=== PATIENT | male | born 1935 | race Caucasian/White ===

== ENCOUNTER → 2017-05-24 | Outpatient (REF) | payer MEDICARE, BC, OTHER ==
[~2017-05-24] MED LIST: "\\\"BP PILL\\\"" PO; "\\\"CHOLESTEROL MED\\\"" PO; /LOR25TA PO; ACETGRA PO; INFL10VL IV; METFORMIN PO; PERCOCET PO; TYLE325T5 PO; [UNRECOGNIZED DRUG - REMARK] PO; [UNRECOGNIZED DRUG - REMARK] PO
[2017-05-24 20:04] LABS: FREE T4 0.86 NG/DL (0.76-1.46)
== END ==
LOC: M SFHCPLAZ 15:35
PROVIDERS: ATTEND Family Medicine
DX: R41.89 Other symptoms and signs involving cognitive functions and awareness (principal); R41.3 Other amnesia; Z79.84 Long term (current) use of oral hypoglycemic drugs; Z79.899 Other long term (current) drug therapy
CPT/HCPCS: 36415; 82306; 82607; 84439; 84443; G0463

== ENCOUNTER → 2017-06-20 | Outpatient (REF) | payer MEDICARE, OTHER ==
[2017-06-20 13:46] LABS: BASO % 0.5 % (0.0-1.0); EOS # 0.1 K/mm3 (0.0-0.50); EOS % 1.7 % (0.0-3.0); LARGE UNSTAINED CELL # 0.1 K/mm3 (0.0-0.4); LARGE UNSTAINED CELL % 2.1 % (0.0-4.0); LYMPH % 44.7 % (24.0-44.0); MEAN CORPUSCULAR HEMOGLOBIN 31.9 pg (27.0-33.0); MEAN CORPUSCULAR HGB CONC 34.6 g/dl (32.0-36.5); MEAN CORPUSCULAR VOLUME 92.4 fl (80.0-96.0); MONO # 0.3 K/mm3 (0.0-0.8); MONO % 4.3 % (0.0-5.0); NEUTROPHILS # 3.1 K/mm3 (1.8-7.7); NEUTROPHILS % 46.7 % (36.0-66.0); PLATELET COUNT, AUTOMATED 189 k/mm3 (150-450); RED CELL DISTRIBUTION WIDTH 13.8 % (11.5-14.5); WHITE BLOOD COUNT 6.7 K/mm3 (4.0-10.0)
[2017-06-20 14:08] LABS: ERYTHROCYTE SEDIMENTATION RATE 35 mm/hr (0-20)
[2017-06-20 14:31] LABS: ALBUMIN 3.9 GM/DL (3.2-5.2); ALBUMIN/GLOBULIN RATIO 1.11 (1.00-1.93); ALKALINE PHOSPHATASE 65 U/L (45-117); ALT/SGPT 18 U/L (12-78); ANION GAP 3 MEQ/L (8-16); AST/SGOT 14 U/L (15-37); BILIRUBIN,TOTAL 0.6 MG/DL (0.2-1.0); BLOOD UREA NITROGEN 21 MG/DL (7-18); CALCIUM LEVEL 8.3 MG/DL (8.8-10.2); CARBON DIOXIDE LEVEL 30 MEQ/L (21-32); CHLORIDE LEVEL 102 MEQ/L (98-107); CREATININE FOR GFR 1.16 MG/DL (0.70-1.30); GLOMERULAR FILTRATION RATE > 60.0 (>35); GLUCOSE, FASTING 102 MG/DL (83-110); POTASSIUM SERUM 4.2 MEQ/L (3.5-5.1); SODIUM LEVEL 135 MEQ/L (136-145); TOTAL PROTEIN 7.4 GM/DL (6.4-8.2)
[2017-06-20 14:35] LABS: FOLATE > 24.0 NG/ML; VITAMIN B12 LEVEL 1762 PG/ML
[2017-06-24 08:08] LABS: VITAMIN E LEVEL 28.5 mg/L (5.3-17.5)
== END ==
LOC: M LABDRAW1 13:14
PROVIDERS: ATTEND Psychiatry & Neurology Neurology
DX: F03.90 Unspecified dementia, unspecified severity, without behavioral disturbance, psychotic disturbance, mood disturbance, and anxiety (principal); R20.9 Unspecified disturbances of skin sensation; Z13.29 Encounter for screening for other suspected endocrine disorder; Z79.899 Other long term (current) drug therapy

== ENCOUNTER → 2017-10-13 | Outpatient (CLI) | payer MEDICARE, OTHER ==
[2017-10-13 13:39] LABS: ANION GAP 7 MEQ/L (8-16); BLOOD UREA NITROGEN 23 MG/DL (7-18); CALCIUM LEVEL 8.9 MG/DL (8.8-10.2); CARBON DIOXIDE LEVEL 29 MEQ/L (21-32); CHLORIDE LEVEL 102 MEQ/L (98-107); CREATININE FOR GFR 1.22 MG/DL (0.70-1.30); GLOMERULAR FILTRATION RATE > 60.0 (>35); GLUCOSE, FASTING 100 MG/DL (83-110); POTASSIUM SERUM 4.3 MEQ/L (3.5-5.1); SODIUM LEVEL 138 MEQ/L (136-145)
== END ==
LOC: M LABDRAW1 11:40
PROVIDERS: ATTEND Orthopaedic Surgery
DX: Z01.812 Encounter for preprocedural laboratory examination (principal); G56.02 Carpal tunnel syndrome, left upper limb

== ENCOUNTER → 2017-10-30 | Outpatient (REF) | payer MEDICARE, OTHER | LOC: M SFHCPLAZ 08:41 | PROVIDERS: ATTEND Family Medicine | DX: R41.3 Other amnesia (principal) ==

== ENCOUNTER 2019-06-05 13:08 | Observation (INO) | payer MEDICARE, BC, OTHER ==
[~2019-06-05] VITALS: Ht 175.3 cm; Wt 104.5 kg
[~2019-06-05 13:08] MED LIST changes: +OXYC1TAB23 PO; -PERCOCET PO
[2019-06-05] MEDS ORDERED: MYRB50TA PO (13:34)
[2019-06-05] MEDS ORDERED: EZET10TA21 (13:34)
[2019-06-05] MEDS ORDERED: MEMA1TAB2 PO (13:34)
[2019-06-05] MEDS ORDERED: QUET1TAB7 PO (13:34)
[2019-06-05] MEDS ORDERED: LISI-542 PO (13:34)
[2019-06-05] MEDS ORDERED: XALA0.007 OU (13:34)
[2019-06-05] MEDS ORDERED: DONE10TA90 PO (13:34)
[2019-06-05] MEDS ORDERED: SIMV40TA2 (13:34)
[2019-06-05] MEDS ORDERED: DORZ2SOL5 OU (13:34)
[2019-06-05] MEDS ORDERED: BRIM1OPD OU (13:34)
[2019-06-05] MEDS: NS 1,000 ML IV SCH (14:01)
[2019-06-05 14:08] LABS: BASO % 0.2 % (0.0-1.0); EOS # 0.1 10^3/uL (0.0-0.50); EOS % 0.9 % (0.0-3.0); HEMATOCRIT 33.7 % (42.0-52.0); HEMOGLOBIN 11.3 g/dl (13.5-17.5); LYMPH # 1.3 10^3/uL (1.5-4.5); LYMPH % 20.5 % (24.0-44.0); MEAN CORPUSCULAR HEMOGLOBIN 32.9 pg (27.0-33.0); MEAN CORPUSCULAR HGB CONC 33.5 g/dl (32.0-36.5); MEAN CORPUSCULAR VOLUME 98.3 fl (80.0-96.0); MONO # 0.4 10^3/uL (0.0-0.8); MONO % 5.8 % (0.0-5.0); NEUTROPHILS # 4.6 10^3/uL (1.8-7.7); NEUTROPHILS % 72.1 % (36.0-66.0); PLATELET COUNT, AUTOMATED 127 10^3/uL (150-450); RED BLOOD COUNT 3.43 10^6/uL (4.30-6.10); WHITE BLOOD COUNT 6.4 10^3/uL (4.0-10.0)
[2019-06-05 14:09] LABS: VENOUS BASE EXCESS -2.8 (-2.0-2.0); VENOUS HCO3 24.2 MEQ/L (23.0-27.0); VENOUS O2 SATURATION 52.1 % (60.0-80.0); VENOUS PARTIAL PRESSURE CO2 51.9 mmHg (38.0-50.0); VENOUS PARTIAL PRESSURE O2 32.8 mmHg (30.0-50.0); VENOUS PH 7.286 UNITS (7.330-7.430); VENOUS STANDARD HCO3 21.3 MEQ/L; VENOUS TOTAL CO2 25.8 MEQ/L (24.0-28.0)
[2019-06-05 14:13] LABS: INR 1.14; PROTHROMBIN TIME 14.3 SECONDS (11.8-14.0)
[2019-06-05] MEDS ORDERED: ASPI81TA85 PO (14:24)
[2019-06-05] MEDS ORDERED: FOLI1TAB11 PO (14:24)
--- NOTE | 2019-06-05 14:25 | REP ---
Noncontrast CT brain: History: Syncope. Comparison head CT study July 25, 2011. CT findings: Preliminary digital record searcher radiograph is unremarkable. On bone window settings, the bony calvarium is intact. Visualized paranasal sinuses are clear. There is vascular calcification in the distal internal carotid arteries bilaterally. There is moderate diffuse cerebral atrophy. Periventricular white matter changes are seen consistent with small vessel atherosclerotic findings. There is a fairly large dense dural calcification in the anterior falx. There is no evidence of acute infarction. No hemorrhage is seen. There is a small low density area at the inferior aspect of the basal ganglia on the left consistent with an old lacunar infarct. This is unchanged from the 2011 prior study. There is no evidence of acute hemorrhage. No acute infarct is seen. No mass or midline shift is observed. Impression: Diffuse moderate atrophy and small vessel changes. Vascular calcification. Old lacunar infarct left basal ganglia. No acute intracranial abnormality. Electronically Signed by Pato Ro MD 06/05/2019 04:37 P
--- NOTE | 2019-06-05 14:28 | REP ---
CHEST, SINGLE VIEW: COMPARISON: 08/09/2013 There is mild bibasilar fibroatelectatic change. There is no acute infiltrate. Heart does not appear to be significantly enlarged. Mediastinal silhouette is unremarkable. IMPRESSION: No acute infiltrate. Electronically Signed by Aleksandr Craig MD 06/07/2019 12:33 P
[2019-06-05] MEDS ORDERED: METF10004 PO (14:31)
[2019-06-05] MEDS ORDERED: ROSU5TAB5 PO (14:31)
[2019-06-05] MEDS ORDERED: METF-877 PO (14:31)
[2019-06-05 15:02] LABS: BLOOD UREA NITROGEN 28 MG/DL (7-18); CALCIUM LEVEL 8.3 MG/DL (8.8-10.2); CARBON DIOXIDE LEVEL 30 MEQ/L (21-32); CHLORIDE LEVEL 109 MEQ/L (98-107); CK-MB VALUE MASS 1.9 NG/ML (<3.6); CPK CREATINE PHOSPHOKINASE 134 U/L (39-308); CREATININE FOR GFR 1.24 MG/DL (0.70-1.30); ETHYL ALCOHOL (ETHANOL) < 0.003 % (0.000-0.010); GLOMERULAR FILTRATION RATE 59.4 (>35); GLUCOSE, FASTING 137 MG/DL (70-100); MB/CK RELATIVE INDEX 1.42 (< OR =4); POTASSIUM SERUM 4.7 MEQ/L (3.5-5.1); SODIUM LEVEL 142 MEQ/L (136-145); TROPONIN I < 0.02 NG/ML (< 0.10)
--- NOTE | 2019-06-05 18:02 | HPEPDOC ---
General Date of Admission 06/05/2019 Date of Service: Jun 05, 2019 Chief Complaint The patient is a 83-year-old male admitted with a reason for visit of Syncope. Source: Old records Exam Limitations: Dementia Timing/Duration: Unsure Severity: Mild Associated Symptoms: Unobtainable History of Present Illness This is an 83-year-old male who apparently had a syncopal event at home while working outdoors gardening. He is unable to tell me anything about the event. Currently, he is oriented strictly to self. There are no family members at bedside. Home Medications Scheduled Aspirin (Aspir 81) 81 Mg Tablet.dr, 81 MG PO QHS, (Reported) Brimonidine Tartrate (Alphagan P) 0.1% 5ML Drops, 1 DROP OU Q8H, (Reported) Donepezil HCl (Donepezil HCl) 10 Mg Tablet, 10 MG PO QHS, (Reported) Dorzolamide HCl/Timolol Maleat (Dorzolamide-Timolol Eye Drops) 10 Ml Drops, 1 DROP OU BID, (Reported) Folic Acid (Folic Acid) 1 Mg Tablet, 1 MG PO DAILY, (Reported) Latanoprost (Xalatan) 0.005% 2.5ML Drops, 1 DROP OU QHS, (Reported) Lisinopril (Lisinopril) 5 Mg Tablet, 5 MG PO QHS, (Reported) Memantine HCl (Memantine HCl) 10 Mg Tablet, 10 MG PO BID, (Reported) Metformin HCl (Metformin HCl) 1,000 Mg Tablet, 1,000 MG PO BID, (Reported) Mirabegron (Myrbetriq) 50 Mg Tab.er.24h, 50 MG PO DAILY, (Reported) Quetiapine Fumarate (Quetiapine Fumarate) 25 Mg Tablet, 50 MG PO DAILY, (Reported) Rosuvastatin Calcium (Rosuvastatin Calcium) Unknown Strength Tablet, Unknown Dose PO QHS, (Reported) Allergies Coded Allergies: No Known Allergies (Verified , 09/04/03) Past Medical History Medical History The patient has reported past medical history of dementia, 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 Significant memory deficit Dyslipidemia. Essential hypertension. Obstructive sleep apnea, it is unclear whether he currently uses a CPAP mask. Ebp-fhaocnu-siqjxyakt diabetes mellitus. Glaucoma. Rheumatoid arthritis. History of traumatic brain injury. Gastroesophageal reflux disease. Osteoarthritis Surgical History Surgical history is said to include Right total hip arthroplasty, bilateral total knee replacements, unspecified shoulder surgery Family History Family history is unobtainable from the patient at this time. Social History * Smoker: Denies Alcohol: Denies Drugs: denies Psychosocial History: Dementia A-FIB/CHADSVASC A-FIB History Current/History of A-Fib/PAF?: No Current PO Anticoag Therapy: No Review of Systems Other systems I am unable to obtain a full review of systems from this patient. He simply states that he has nothing. Physical Examination General Exam: Positive: Cooperative, No Acute Distress Eye Exam: Positive: PERRLA, Conjunctiva & lids normal ENT Exam: Positive: Atraumatic, Mucous membr. moist/pink, Tongue Midline, Other ENT (good dentition) Neck Exam: Positive: Supple; Negative: JVD, thyromegaly, +2 carotid pulse wo bruit, Lymphadenopathy, Other Chest Exam: Positive: Clear to auscultation, Normal air movement Heart Exam: Positive: Rate Normal, Regular Rhythm Abdomen Exam: Positive: Normal bowel sounds, Soft Extremity Exam: Positive: Normal pulses Skin Exam: Positive: Nl turgor and temperature (no notable wounds or abrasions) Neuro Exam: Positive: Cranial Nerves 3-12 NL Psych Exam: Positive: Memory Intact (the patient is very pleasant but clearly has memory and cognition deficits) Vital Signs Vital Signs Date Time Temp Pulse Resp B/P (MAP) Pulse Ox O2 Delivery O2 Flow Rate FiO2 06/05/19 17:00 16 139/69 (92) 06/05/19 16:53 66 100 06/05/19 13:34 97.1 Room Air Laboratory Data Labs 24H Laboratory Tests 2 06/05/19 13:41: Immature Granulocyte % (Auto) 0.5, White Blood Count 6.4, Red Blood Count 3.43L, Hemoglobin 11.3L, Hematocrit 33.7L, Mean Corpuscular Volume 98.3H, Mean Corpuscular Hemoglobin 32.9, Mean Corpuscular Hemoglobin Concent 33.5, Red Cell Distribution Width 14.6H, Platelet Count 127L, Neutrophils (%) (Auto) 72.1H, Lymphocytes (%) (Auto) 20.5L, Monocytes (%) (Auto) 5.8H, Eosinophils (%) (Auto) 0.9, Basophils (%) (Auto) 0.2, Neutrophils # (Auto) 4.6, Lymphocytes # (Auto) 1.3L, Monocytes # (Auto) 0.4, Eosinophils # (Auto) 0.1, Basophils # (Auto) 0.0, Nucleated Red Blood Cells % (auto) 0.0, Prothrombin Time 14.3H, Prothromb Time International Ratio 1.14, Blood Gas Bicarbonate Standard 21.3, Venous Blood pH 7.286L, Venous Blood Partial Pressure CO2 51.9H, Venous Blood Partial Pressure O2 32.8, Venous Blood Total Carbon Dioxide 25.8, Venous Blood HCO3 24.2, Venous Blood Oxygen Saturation 52.1L, Venous Blood Base Excess -2.8L, Anion Gap 3L, Glomerular Filtration Rate 59.4, Lactic Acid Level 1.0, Blood Urea Nitrogen 28H, Creatinine 1.24, Sodium Level 142, Potassium Level 4.7, Chloride Level 109H, Carbon Dioxide Level 30, Calcium Level 8.3L, Total Creatine Kinase 134, Creatine Kinase MB 1.9, Creatine Kinase MB Relative Index 1.42, Troponin I < 0.02, Thyroid Stimulating Hormone (TSH) 1.880, Ethyl Alcohol Level < 0.003 CBC/BMP Laboratory Tests 06/05/19 13:41 Red Blood Count 3.43 L, Mean Corpuscular Volume 98.3 H, Mean Corpuscular Hemoglobin 32.9, Mean Corpuscular Hemoglobin Concent 33.5, Red Cell Distribution Width 14.6 H, Neutrophils (%) (Auto) 72.1 H, Lymphocytes (%) (Auto) 20.5 L, Monocytes (%) (Auto) 5.8 H, Eosinophils (%) (Auto) 0.9, Basophils (%) (Auto) 0.2, Neutrophils # (Auto) 4.6, Lymphocytes # (Auto) 1.3 L, Monocytes # (Auto) 0.4, Eosinophils # (Auto) 0.1, Basophils # (Auto) 0.0, Calcium Level 8.3 L, Total Creatine Kinase 134 Assessment/Plan This is an 83-year-old male admitted with syncope. He is currently awake, alert to his environment and conversant. At baseline he has dementia and memory deficits. Head CT was notable for significant parenchymal atrophy, but otherwise no sign of injury or bleed. There is presence of old infarct. Laboratory data is otherwise unremarkable. Patient has not demonstrated any form of cardiac dysrhythmia. We will monitor the patient overnight and have him assessed by physical and occupational therapy services. If he is otherwise intact he would be appropriate for discharge to home. He is consequently placed on observation status. Plan / VTE VTE Prophylaxis Ordered?: Yes Plan Diet: Continue Current Activity: Encourage Ambulation (with assistance) Therapy: PT, OT Anticipated Discharge: Home With Services SHARATH RITCHIE MD Jun 05, 2019 18:02
[2019-06-05] MEDS ORDERED: GLUCOSE 4 GM CHEW TABLET PO PRN (18:15)
[2019-06-05] MEDS ORDERED: ACETAMINOPHEN TAB 650MG DOSE (2X325MG) PO PRN (18:15)
[2019-06-05] MEDS ORDERED: GLUCAGON FOR INJ 1 MG VIAL (J1610) SC PRN (18:15)
[2019-06-05] MEDS ORDERED: DEXTROSE 50% 50 ML SYRINGE IV PRN (18:15)
[2019-06-05 18:24] LABS: AMPHETAMINES LEVEL URINE NEGATIVE (NEGATIVE); BARBITURATES URINE NEGATIVE (NEGATIVE); BENZODIAZEPINES URINE NEGATIVE (NEGATIVE); CANNABINOIDS URINE NEGATIVE (NEGATIVE); COCAINE METABOLITE URINE NEGATIVE (NEGATIVE); METHADONE URINE NEGATIVE (NEGATIVE); OPIATES URINE NEGATIVE (NEGATIVE); PHENCYCLIDINE URINE NEGATIVE (NEGATIVE)
[2019-06-05] MEDS ORDERED: LISINOPRIL 5 MG TAB PO SCH (21:00)
[2019-06-05] MEDS ORDERED: LATANOPROST 0.005% OPHTH SOLN 2.5 ML OU SCH (21:00)
[2019-06-05] MEDS ORDERED: ASPIRIN 81 MG ENTERIC TAB PO SCH (21:00)
[2019-06-05] MEDS ORDERED: HumaLOG INSULIN (NovoLOG) PER UNIT SC SCH (21:00)
[2019-06-05 22:17] VITALS: BP 122/60
[2019-06-05] MEDS: HEPARIN SOD (PORCINE) 5000 UNITS/ML VIAL SQ SCH (22:17)
[2019-06-05] MEDS: BRIMONIDINE 0.1% OPHTH SOLN 5 ML OU SCH (22:24)
[2019-06-06] MEDS: NS 1,000 ML IV SCH ×2 (00:06→09:25)
[2019-06-06] MEDS: BRIMONIDINE 0.1% OPHTH SOLN 5 ML OU SCH (05:11)
[2019-06-06 06:00] VITALS: BP 115/62
[2019-06-06 06:54] LABS: BLOOD UREA NITROGEN 21 MG/DL (7-18); CALCIUM LEVEL 8.6 MG/DL (8.8-10.2); CARBON DIOXIDE LEVEL 27 MEQ/L (21-32); CHLORIDE LEVEL 112 MEQ/L (98-107); CREATININE FOR GFR 1.07 MG/DL (0.70-1.30); GLOMERULAR FILTRATION RATE > 60.0 (>35); GLUCOSE, FASTING 99 MG/DL (70-100); POTASSIUM SERUM 3.7 MEQ/L (3.5-5.1); SODIUM LEVEL 144 MEQ/L (136-145)
[2019-06-06] MEDS ORDERED: HumaLOG INSULIN (NovoLOG) PER UNIT SC SCH (07:30)
--- NOTE | 2019-06-06 07:40 | ECGEPIP ---
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
[2019-06-06] MEDS ORDERED: metFORMIN (GLUCOPHAGE) 1000 MG TABLET PO SCH (08:00)
[2019-06-06] MEDS ORDERED: FOLIC ACID 1 MG TAB PO SCH (09:00)
[2019-06-06] MEDS: HEPARIN SOD (PORCINE) 5000 UNITS/ML VIAL SQ SCH (09:00)
[2019-06-06] MEDS ORDERED: QUEtiapine FUMARATE 25 MG TAB PO SCH (09:00)
--- NOTE | 2019-06-06 20:09 | DS.PDOC ---
Discharge Summary General Date of Admission Jun 05, 2019 at 18:02 Date of Discharge 06/06/2019 Discharge Summary PROCEDURES PERFORMED DURING STAY: None. ADMITTING DIAGNOSES: 1. Syncope. DISCHARGE DIAGNOSES: 1. Syncope. Dementia, vascular versus Alzheimer's type. Dyslipidemia. Essential hypertension. Obstructive sleep apnea. Sbx-xhyoxwy-aoxyicvgu diabetes mellitus, glaucoma, rheumatoid arthritis, history of traumatic brain injury, gastroesophageal reflux disease, osteoarthritis. COMPLICATIONS/CHIEF COMPLAINT: Syncope And Colapse. HISTORY OF PRESENT ILLNESS/HOSPITAL COURSE: This is an 83-year-old male who had been out gardening. It was a rather hot and humid day. He apparently had been burning branches. He was out in the sun and also inhaling smoke. His and advised him to come inside. When she went back out he was still there and subsequently passed out. He was then brought to the emergency room. Patient was placed on the [facility] floor. He fortunately did not have any new injuries seen to his head CT; patient has a history of stroke and closed head injury resulting in memory deficits. Note was made of remarkable atrophy and old infarcts. Patient did demonstrate atrial fibrillation but stated in controlled rate. Patient was assessed by physical and occupational therapy services; it was felt he might benefit from home health physical therapy for safety reasons as he is impulsive. Given his atrial fibrillation. We did discuss anticoagulation. He is at such high risk of recurrent falls and has had so many head injuries that anticoagulation is not advised. He was otherwise medically stable for discharge to home.. DISCHARGE MEDICATIONS: Please see below. ALLERGIES: Please see below. PHYSICAL EXAMINATION ON DISCHARGE: VITAL SIGNS: Please see below. GENERAL: Patient is awake and oriented primarily to self HEENT: Neck is supple with no adenopathy or thyromegaly, oral mucosa is moist, he has good dentition CARDIOVASCULAR EXAMINATION: Currently regular rate and rhythm with a normal S1 and S2. No appreciable murmur RESPIRATORY EXAMINATION: Clear to auscultation ABDOMINAL EXAMINATION: Soft, nontender, nondistended with positive bowel tones EXTREMITIES: No peripheral edema or lesions SKIN: No jaundice, no bruising NEUROLOGICAL EXAMINATION: . There is no focal neuromotor deficit, cranial nerves II through XII are grossly intact to function PSYCHIATRIC EXAMINATION: Patient has remarkable memory deficits, he can be redirected by his . LABORATORY DATA: Please see below. IMAGING: PROGNOSIS: ACTIVITY: As tolerated. DIET: As tolerated DISCHARGE PLAN: The patient is stable for discharge to home. He will follow-up with his primary care provider in 1-2 weeks. There are no changes to his home medications. Again, chronic anticoagulation is not recommended. DISPOSITION: 01 Home, Self-Care. DISCHARGE INSTRUCTIONS: ITEMS TO FOLLOWUP ON ON OUTPATIENT: DISCHARGE CONDITION: Stable. TIME SPENT ON DISCHARGE: Greater than 35 minutes. Vital Signs/I&Os Vital Signs Date Time Temp Pulse Resp B/P (MAP) Pulse Ox O2 Delivery O2 Flow Rate FiO2 06/06/19 06:00 98.1 72 19 115/62 (79) 98 06/05/19 13:34 Room Air I&O- Last 24 Hours up to 6 AM 06/06/19 05:59 Intake Total 300 ml Output Total 400 ml Balance -100 ml Laboratory Data Labs 24H Laboratory Tests 2 06/05/19 21:51: Bedside Glucose (Misc Panel) 135H 06/06/19 05:55: Anion Gap 5L, Glomerular Filtration Rate > 60.0, Blood Urea Nitrogen 21H, Creatinine 1.07, Sodium Level 144, Potassium Level 3.7#, Chloride Level 112H, Carbon Dioxide Level 27, Calcium Level 8.6L CBC/BMP Laboratory Tests 06/06/19 05:55 Calcium Level 8.6 L FSBS Laboratory Tests Test 06/05/19 21:51 Range/Units Bedside Glucose (Misc Panel) 135 83-110 MG/DL Discharge Medications Scheduled Aspirin (Aspir 81) 81 Mg Tablet.dr, 81 MG PO QHS, (Reported) Brimonidine Tartrate (Alphagan P) 0.1% 5ML Drops, 1 DROP OU Q8H, (Reported) Donepezil HCl (Donepezil HCl) 10 Mg Tablet, 10 MG PO QHS, (Reported) Dorzolamide HCl/Timolol Maleat (Dorzolamide-Timolol Eye Drops) 10 Ml Drops, 1 DROP OU BID, (Reported) Folic Acid (Folic Acid) 1 Mg Tablet, 1 MG PO DAILY, (Reported) Latanoprost (Xalatan) 0.005% 2.5ML Drops, 1 DROP OU QHS, (Reported) Lisinopril (Lisinopril) 5 Mg Tablet, 5 MG PO QHS, (Reported) Memantine HCl (Memantine HCl) 10 Mg Tablet, 10 MG PO BID, (Reported) Metformin HCl (Metformin HCl) 1,000 Mg Tablet, 1,000 MG PO BID, (Reported) Mirabegron (Myrbetriq) 50 Mg Tab.er.24h, 50 MG PO DAILY, (Reported) Quetiapine Fumarate (Quetiapine Fumarate) 25 Mg Tablet, 50 MG PO DAILY, (Reported) Rosuvastatin Calcium (Rosuvastatin Calcium) Unknown Strength Tablet, Unknown Dose PO QHS, (Reported) Allergies Coded Allergies: No Known Allergies (Verified , 09/04/03) SHARATH RITCHIE MD Jun 06, 2019 20:09
== END 2019-06-06 12:10 | disposition home or self-care (01) ==
LOC: EDBD 13:08 → M ED 13:08 → M ED INP 18:02 → M MSPAV 20:50
PROVIDERS: ADMIT Internal Medicine; ATTEND Internal Medicine
DX: R55 Syncope and collapse (principal); I48.91 Unspecified atrial fibrillation; F03.90 Unspecified dementia, unspecified severity, without behavioral disturbance, psychotic disturbance, mood disturbance, and anxiety; E78.5 Hyperlipidemia, unspecified; I10 Essential (primary) hypertension; G47.33 Obstructive sleep apnea (adult) (pediatric); E11.9 Type 2 diabetes mellitus without complications; H40.9 Unspecified glaucoma; M06.9 Rheumatoid arthritis, unspecified; K21.9 Gastro-esophageal reflux disease without esophagitis; M19.90 Unspecified osteoarthritis, unspecified site; Z87.820 Personal history of traumatic brain injury; I69.311 Memory deficit following cerebral infarction; Z79.899 Other long term (current) drug therapy; Z79.82 Long term (current) use of aspirin; Z79.84 Long term (current) use of oral hypoglycemic drugs
CPT/HCPCS: 36415; 70450; 71045; 80048; 80307; 82550; 82553; 82803; 83605; 84443; 84484; 85025; 85610; 93005; 93041; 96372; 97161; 97165; 97530; 99285; G0378; G0480

== ENCOUNTER 2019-08-26 15:07 | Inpatient (IN) | payer MEDICARE, BC, OTHER ==
[~2019-08-26] VITALS: Ht 172.7 cm; Wt 100.0 kg
[~2019-08-26 15:07] MED LIST changes: +ASPI81TA85 PO; +BRIM1OPD OU; +DONE10TA90 PO; +DORZ2SOL5 OU; +EZET10TA21; +FOLI1TAB11 PO; +LISI-542 PO; +MEMA1TAB2 PO; +METF-877 PO; +METF10004 PO; +MYRB50TA PO; +QUET1TAB7 PO; +ROSU5TAB5 PO; +SIMV40TA2; +XALA0.007 OU
--- NOTE | 2019-08-26 15:57 | REP ---
CHEST, SINGLE VIEW: Single view of the chest is performed and compared to a prior study of 06/05/2019. No acute infiltrate is seen. There is mild elevation of the left hemidiaphragm with crowded lung markings in each lung base. Heart does not appear to be significantly enlarged. Mediastinal silhouette is unchanged. There are degenerative changes of the spine. IMPRESSION: No acute infiltrate. Electronically Signed by Aleksandr Criag MD 08/27/2019 04:40 P
[2019-08-26 16:03] LABS: BASO % 0.3 % (0.0-1.0); EOS # 0.1 10^3/uL (0.0-0.5); EOS % 1.1 % (0.0-3.0); HEMATOCRIT 35.6 % (42.0-52.0); HEMOGLOBIN 11.9 g/dl (13.5-17.5); LYMPH # 2.2 10^3/uL (1.5-5.0); LYMPH % 34.3 % (24.0-44.0); MEAN CORPUSCULAR HEMOGLOBIN 31.6 pg (27.0-33.0); MEAN CORPUSCULAR HGB CONC 33.4 g/dl (32.0-36.5); MEAN CORPUSCULAR VOLUME 94.7 fl (80.0-96.0); MONO # 0.5 10^3/uL (0.0-0.8); MONO % 7.3 % (0.0-5.0); NEUTROPHILS # 3.7 10^3/uL (1.5-8.5); NEUTROPHILS % 56.7 % (36.0-66.0); PLATELET COUNT, AUTOMATED 149 10^3/uL (150-450); RED BLOOD COUNT 3.76 10^6/uL (4.30-6.10); WHITE BLOOD COUNT 6.5 10^3/uL (4.0-10.0)
[2019-08-26 16:40] LABS: BLOOD UREA NITROGEN 22 MG/DL (7-18); CALCIUM LEVEL 8.9 MG/DL (8.8-10.2); CARBON DIOXIDE LEVEL 30 MEQ/L (21-32); CHLORIDE LEVEL 105 MEQ/L (98-107); CK-MB VALUE MASS 1.7 NG/ML (<3.6); CPK CREATINE PHOSPHOKINASE 105 U/L (39-308); CREATININE FOR GFR 1.17 MG/DL (0.70-1.30); GLOMERULAR FILTRATION RATE > 60.0 (>35); GLUCOSE, FASTING 134 MG/DL (70-100); MAGNESIUM LEVEL 1.7 MG/DL (1.8-2.4); MB/CK RELATIVE INDEX 1.62 (< OR =4); POTASSIUM SERUM 4.5 MEQ/L (3.5-5.1); SODIUM LEVEL 141 MEQ/L (136-145); TROPONIN I < 0.02 NG/ML (< 0.10)
[2019-08-26] MEDS ORDERED: QUET5TAB PO (17:04)
[2019-08-26] MEDS ORDERED: [UNRECOGNIZED DRUG - CODE] SC (17:04)
[2019-08-26] MEDS ORDERED: LISI10TA4 PO (17:04)
[2019-08-26] MEDS ORDERED: METH2.5T48 PO (17:04)
[2019-08-26] MEDS ORDERED: ROSU40TA4 PO (17:04)
[2019-08-26] MEDS ORDERED: METF-839 PO (17:04)
[2019-08-26] MEDS ORDERED: OMEP20TA PO (17:04)
[2019-08-26] MEDS ORDERED: MAG SULF 1GM/100ML (MAG RUN) 1 GM in IV 1 EA IV ONE (18:45)
[2019-08-26] MEDS ORDERED: GLUCOSE 4 GM CHEW TABLET PO PRN (19:15)
[2019-08-26] MEDS ORDERED: DEXTROSE 50% 50 ML SYRINGE IV PRN (19:15)
[2019-08-26] MEDS ORDERED: GLUCAGON FOR INJ 1 MG VIAL (J1610) SC PRN (19:15)
[2019-08-26 20:50] VITALS: BP 111/77
--- NOTE | 2019-08-26 20:51 | REPVR ---
PROCEDURE INFORMATION: Exam: US Duplex Bilateral Extracranial Arteries Exam date and time: 08/26/2019 8:16 PM Clinical history: 84 years old, male; Syncope and collapse TECHNIQUE: Imaging protocol: Real-time Duplex ultrasound scan of the bilateral carotid and vertebral arteries combining perez scale, color Doppler and spectral waveform analysis. Bilateral exam. COMPARISON: No relevant prior studies available. FINDINGS: Right common carotid artery: Unremarkable. No occlusion or stenosis. Waveforms are normal. Right internal carotid artery: Mild to moderate mixed atherosclerotic changes. No significant elevation in diastolic velocities. No occlusion or stenosis. Waveforms are normal. Right ICA/CCA ratio: Within normal limits. 0.61 Right external carotid artery: No stenosis in the origin. Right vertebral artery: Unremarkable. Antegrade flow Left common carotid artery: Mild atherosclerotic changes in the distal segment. Otherwise unremarkable. No occlusion or stenosis. Waveforms are normal. Left internal carotid artery: Mild to moderate mixed atherosclerotic changes. No significant increase in diastolic velocities. No occlusion or stenosis. Waveforms are normal. Left ICA/CCA ratio: Within normal limits. 0.37. Left external carotid artery: No stenosis in the origin. Left vertebral artery: Unremarkable. Antegrade flow. IMPRESSION: Mild to moderate bilateral atherosclerotic changes in the proximal internal carotid arteries bilaterally with mild atherosclerotic changes in the distal left common carotid artery. Stenoses are less than 50% bilaterally at the carotid bifurcations consistent with a mild stenosis using SRU criteria. COMMENT: Carotid Stenosis Reference using SRU criteria: Mild: less than 50% stenosis. ICA PSV is less than 125 cm/second and plaque or intimal thickening is visible. Moderate: 50-69% stenosis. ICA PSV is 125 to 230 cm/second and plaque is visible. Severe: 70-94% stenosis. ICA PSV is more than 230 cm/second and visible plaque and lumen narrowing are seen. Near occlusion: 95-99% stenosis. ICA PSV is variable and significant plaque and luminal narrowing are seen. Occluded: 100% stenosis. No flow identified. Electronically signed by: Freddie Lynne On 08/26/2019 20:50:26 PM
--- NOTE | 2019-08-26 21:02 | ECGEPIP ---
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
[2019-08-26] MEDS: ROSUVASTATIN 10 MG TAB (CRESTOR) PO SCH (22:47)
[2019-08-26] MEDS: COSOPT OCUMETER PLUS 10ML (DORZOLAMIDE/TIMOLOL) OU SCH (22:47)
[2019-08-26] MEDS: LATANOPROST 0.005% OPHTH SOLN 2.5 ML OU SCH (22:47)
[2019-08-26] MEDS: BRIMONIDINE 0.1% OPHTH SOLN 5 ML OU SCH (22:47)
[2019-08-26] MEDS: DONEPEZIL 5 MG TAB PO SCH (22:48)
[2019-08-26] MEDS: MEMANTINE 5MG TABLET (NAMENDA) PO SCH (22:48)
[2019-08-26] MEDS: QUEtiapine FUMARATE 50 MG TAB PO SCH (22:49)
[2019-08-27 06:00] VITALS: BP_SYST 126; BP_SYST 131; BP_SYST 133; BP_SYST 140; BP_DIAS 74; BP_DIAS 79; BP_DIAS 85; BP_DIAS 88
[2019-08-27 06:08] LABS: BASO % 0.3 % (0.0-1.0); EOS # 0.1 10^3/uL (0.0-0.5); EOS % 1.3 % (0.0-3.0); HEMATOCRIT 34.1 % (42.0-52.0); HEMOGLOBIN 11.5 g/dl (13.5-17.5); LYMPH # 2.9 10^3/uL (1.5-5.0); LYMPH % 47.2 % (24.0-44.0); MEAN CORPUSCULAR HGB CONC 33.7 g/dl (32.0-36.5); MONO # 0.5 10^3/uL (0.0-0.8); MONO % 8.4 % (0.0-5.0); NEUTROPHILS # 2.6 10^3/uL (1.5-8.5); NEUTROPHILS % 42.5 % (36.0-66.0); PLATELET COUNT, AUTOMATED 127 10^3/uL (150-450); RED BLOOD COUNT 3.59 10^6/uL (4.30-6.10); WHITE BLOOD COUNT 6.2 10^3/uL (4.0-10.0)
[2019-08-27 06:36] LABS: BLOOD UREA NITROGEN 21 MG/DL (7-18); CARBON DIOXIDE LEVEL 30 MEQ/L (21-32); CHLORIDE LEVEL 107 MEQ/L (98-107); CREATININE FOR GFR 1.17 MG/DL (0.70-1.30); GLOMERULAR FILTRATION RATE > 60.0 (>35); GLUCOSE, FASTING 113 MG/DL (70-100); POTASSIUM SERUM 3.8 MEQ/L (3.5-5.1); SODIUM LEVEL 141 MEQ/L (136-145)
[2019-08-27] MEDS: HumaLOG INSULIN (NovoLOG) PER UNIT SC SCH ×3 (08:31→17:44)
[2019-08-27] MEDS: ENOXAPARIN 40 MG/0.4 ML SYRINGE (J1650) SC SCH (08:32)
[2019-08-27] MEDS: ASPIRIN 81 MG ENTERIC TAB PO SCH (08:32)
[2019-08-27] MEDS: FOLIC ACID 1 MG TAB PO SCH (08:32)
[2019-08-27] MEDS: MEMANTINE 5MG TABLET (NAMENDA) PO SCH ×2 (08:32→21:39)
[2019-08-27] MEDS: LISINOPRIL 5 MG TAB PO SCH (08:32)
[2019-08-27] MEDS: OMEPRAZOLE 20 MG CAP PO SCH (08:32)
[2019-08-27] MEDS: QUEtiapine FUMARATE 50 MG TAB PO SCH ×2 (08:32→21:39)
[2019-08-27] MEDS: COSOPT OCUMETER PLUS 10ML (DORZOLAMIDE/TIMOLOL) OU SCH (08:33)
[2019-08-27] MEDS: BRIMONIDINE 0.1% OPHTH SOLN 5 ML OU SCH ×2 (08:33→21:38)
[2019-08-27 14:00] VITALS: BP 115/64
[2019-08-27 14:20] LABS: MAGNESIUM LEVEL 2.2 MG/DL (1.8-2.4)
[2019-08-27] MEDS ORDERED: POTASSIUM CHLORIDE 10 MEQ SR TABLET PO ONE (15:00)
[2019-08-27] MEDS ORDERED: ISOVUE-370 76% 100ML VIAL (Q9967) As Ordered ONE (15:32)
--- NOTE | 2019-08-27 16:40 | IPN ---
DATE: 08/27/2019 Per electrocardiograph technician, the patient remained in atrial fibrillation and had an episode of 2.2 sinus pause. The patient was asymptomatic with blood pressure well maintained during this event. He currently denies any shortness of breath, chest pain, pressure or tightness, palpitations, lightheadedness, or dizziness. He complains of generalized weakness. Per the present at the bedside, he has had worsening confusion. Currently on Namenda and donepezil. The patient at times does not remember his daughter and after a few minutes will say "Oh yes, I know her." OBJECTIVE: PHYSICAL EXAMINATION: VITAL SIGNS: Temperature 97, pulse 79 to 95, respiratory rate 18, blood pressure 131/74, 96% on room air. GENERAL: The patient is awake, alert, oriented to himself. He is in no respiratory distress. No use of respiratory accessory muscles. No jugular venous distention (JVD). He follows commands, easily arousable. The patient is confused and disoriented to time and place. NECK: Supple. No carotid bruits. No cervical lymphadenopathy. LUNGS: Clear to auscultation. No wheezing, rales or rhonchi. Air entry is equal bilaterally. HEART: S1, S2. Irregularly irregular. ABDOMEN: Soft, nontender, nondistended. Positive bowel sounds times four quadrants. No rebound or guarding. There are no abdominal bruits. EXTREMITIES: No cyanosis or clubbing. SKIN: [place] in color and warm to touch. LABORATORY DATA: White count 6.2, hemoglobin 11, hematocrit 34, platelet count 127. Sodium 141, potassium 3.8, chloride 107, bicarbonate 30, BUN 21, creatinine 1.17, glucose of 113, magnesium of 2.2, TSH 3.8. Troponin less than 0.07. IMAGING STUDIES: Chest x-ray showed no acute infiltrate. Carotid Dopplers showed mild to moderate bilateral atherosclerotic changes in proximal internal carotid arteries bilaterally with mild atherosclerotic changes in distal left common carotid artery, stenosis less than 50% bilaterally at the carotid bifurcation consistent with mild stenosis. ASSESSMENT AND PLAN: This is an 84-year-old male with second admission for syncopal episode and collapse, initially noted in May and was discharged home. Per the patient's , he has had recurrent falls and syncopal episodes at home with concerns for his safety, as he has fallen in the kitchen with granite countertops. THe patient is currently here for placement and evaluation for his syncopal episode. 1. Syncope. The patient remains on telemetry and was found to have atrial fibrillation, which is rate controlled, episodes of sinus pause 2.2 seconds, which was asymptomatic while he was lying down and sleeping on the bed. He remained hemodynamically stable. We will continue to monitor on telemetry and we will consult cardiology if the patient will be eligible with his advanced dementia, recurrent falls for a pacer placement if the patient has recurrent episodes of syncope and sinus pauses. Due to sinus pause, the patient's Timolol has been discontinued. 2. 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 The patient cannot be sent for MRI due to hip replacements in the past. We will obtain CT angio of the head and neck regarding his syncopal episodes. 3. Atrial fibrillation with sinus pauses, currently not on medications for rate control. We will continue to monitor on telemetry. Possible sick sinus syndrome and may need a pacemaker if the patient continues to have sinus pauses or bradycardia. 4. Type 2 diabetes, not on medications currently. Check A1/c and continue with sliding scale. 5. Glaucoma. Timolol has been discontinued due to sinus pause. 6. History of traumatic brain injury in the past with stroke and closed head injuries with chronic memory deficits. Followed by Dr. De Paz as an outpatient. We will consult if CTA has new findings. 7. Deep vein thrombosis (DVT) prophylaxis with compression stockings. 8. Placement. The patient's is unable to care for him at home. THe patient will need social work for [facility] discharge. [place]
--- NOTE | 2019-08-27 17:42 | REP ---
CT angiography of the neck with IV contrast: History: Gait ataxia, rule out CVA. Atrial fibrillation. CT angiographic findings: There is mild vascular calcification in the posterior aortic arch. The left vertebral artery takes a direct aortic origin as a normal variant. There is mild calcification in the proximal left vertebral artery without significant stenosis. Vertebral arteries are widely patent. The right vertebral artery origin is calcific fairly heavily. There is also fairly heavy vascular calcification in the distal innominate artery without high grade stenosis. The common carotid arteries are unremarkable and symmetric. Moderate vascular calcification is seen in the carotid bifurcations with less than 50% narrowing is of the internal carotid arteries bilaterally. There is some calcification in the carotid siphons bilaterally. No high-grade stenosis is seen. The internal carotid arteries are bilaterally tortuous, particularly on the right. Study is otherwise unremarkable. Impression: Direct aortic origin left vertebral artery with some calcific plaquing. Heavy calcific plaquing at the origin of the right vertebral artery. Less than 50% narrowing of the internal carotid arteries bilaterally. Otherwise negative. Electronically Signed by Pato Ro MD 08/28/2019 07:45 A
--- NOTE | 2019-08-27 17:43 | REP ---
CT ANGIO of the brain with IV contrast: History: Gait ataxia, rule out cerebellar CVA. Atrial fibrillation. CT contrast dose: 100 ml of intravenous Isovue [address] findings: Distal vertebral and distal internal carotid arteries are normal and symmetric. There is some vascular calcification in the carotid siphons bilaterally, mild in degree. No evidence of high-grade stenosis is seen. The anterior and middle cerebral arteries are unremarkable. Posterior cerebral and superior cerebellar vessels are unremarkable. There is no CT angiographic evidence to suggest intravenous arteriovascular malformation. The dural sinuses are unremarkable and patent bilaterally. Impression: Vascular calcification in the carotid siphons bilaterally. No evidence of arteriovenous malformation or brewster aneurysm. Electronically Signed by Pato Ro MD 08/28/2019 07:45 A
--- NOTE | 2019-08-27 18:16 | EEG ---
DATE OF PROCEDURE: 08/27/2019 REFERRING PHYSICIAN: Dr. Kathleen Kaufman DIAGNOSIS: Syncope versus seizure. EEG NUMBER: [id number] HISTORY: The patient is an 84-year-old man with a history of dementia, diabetes, sleep apnea, hypertension, heart disease and syncopal events. He was admitted at [facility] due to passing out spell. This EEG was done to rule out epileptic potential. He is currently taking aspirin, quetiapine, Crestor, Aricept, Namenda, etc. TECHNICAL DESCRIPTION: This digital EEG was recorded by 21 scalp, ear and two EKG electrodes and was reviewed in bipolar and referential montages following reformatting in 10-20 international electrode placement system. INTERPRETATION: The patient was noted to be in awake and drowsy states during this EEG. Resting awake background rhythm consisted of a 8-9 Hz alpha activity measuring 15-40 microvolts in amplitude, which was symmetric and reactive to eye opening. Stage I and II sleep were reviewed and were symmetric bilaterally. Intermittent theta slowing was noted in bilateral temporal head region. Hyperventilation could not be performed. Photic stimulation remained unremarkable. EKG revealed irregular heartbeat and possible atrial fibrillation. No focal, lateralizing or epileptiform abnormalities were seen. No relevant clinical activity was noted. CONCLUSION: This EEG in awake, drowsy states, stage I and II sleep is mildly abnormal due to presence of mild intermittent bilateral temporal slowing consistent with nonspecific diffuse cerebral dysfunction such as seen in dementia and encephalopathy. EKG revealed irregular heart beat and possible atrial fibrillation. No clear P-waves were seen. A 12-lead EKG is recommended. Clinical correlation is advised.
[2019-08-27] MEDS: LATANOPROST 0.005% OPHTH SOLN 2.5 ML OU SCH (21:38)
[2019-08-27] MEDS: ROSUVASTATIN 10 MG TAB (CRESTOR) PO SCH (21:39)
[2019-08-27] MEDS: DONEPEZIL 5 MG TAB PO SCH (21:42)
[2019-08-27 22:00] VITALS: BP 130/79
[2019-08-28 06:00] VITALS: BP 130/71
[2019-08-28 06:14] LABS: BASO % 0.3 % (0.0-1.0); EOS # 0.1 10^3/uL (0.0-0.5); EOS % 1.1 % (0.0-3.0); HEMATOCRIT 35.2 % (42.0-52.0); HEMOGLOBIN 11.6 g/dl (13.5-17.5); LYMPH # 3.1 10^3/uL (1.5-5.0); LYMPH % 46.4 % (24.0-44.0); MEAN CORPUSCULAR HEMOGLOBIN 31.2 pg (27.0-33.0); MEAN CORPUSCULAR VOLUME 94.6 fl (80.0-96.0); MONO # 0.5 10^3/uL (0.0-0.8); MONO % 7.3 % (0.0-5.0); NEUTROPHILS % 44.7 % (36.0-66.0); PLATELET COUNT, AUTOMATED 139 10^3/uL (150-450); RED BLOOD COUNT 3.72 10^6/uL (4.30-6.10); WHITE BLOOD COUNT 6.6 10^3/uL (4.0-10.0)
[2019-08-28 06:47] LABS: BLOOD UREA NITROGEN 20 MG/DL (7-18); CALCIUM LEVEL 8.5 MG/DL (8.8-10.2); CARBON DIOXIDE LEVEL 29 MEQ/L (21-32); CHLORIDE LEVEL 108 MEQ/L (98-107); CREATININE FOR GFR 1.22 MG/DL (0.70-1.30); FREE THYROXINE INDEX 1.9 % (1.4-3.8); GLOMERULAR FILTRATION RATE > 60.0 (>35); GLUCOSE, FASTING 109 MG/DL (70-100); SODIUM LEVEL 142 MEQ/L (136-145); T UPTAKE 35 % (33-40); THYROXINE (T4) 5.5 UG/DL (4.5-12.0)
--- NOTE | 2019-08-28 07:54 | ECHO ---
DATE OF STUDY: 08/26/2019 REFERRING PHYSICIAN: Dr. Kathleen Kaufman INDICATION: Syncope. HEIGHT: 173 cm. WEIGHT: 104 kg. DIMENSIONS: IVS: 1.3 LV: 3.8 LVPW: 1.2 LA: 4.1 Aorta: 3.7 IVC: 1.8 FINDINGS: The study is of acceptable technical quality even though apical views were somewhat limited. The patient is in atrial fibrillation with controlled rate. The left ventricle is of normal size and systolic function, I estimate ejection fraction (EF) around 60%, but the visualization was limited and I cannot completely rule out subtle wall motion abnormalities. Mild left ventricular hypertrophy (LVH) is present. The right ventricle appears to be normal size and systolic function. Both atria are severely enlarged. The aortic valve is sclerotic, but it has three cusps and grossly preserved mobility. Mitral and tricuspid valves appear normal. Pulmonic valve was not seen. No pericardial effusion is noted. Inferior vena cava is of normal caliber. Aortic root, aortic arch and visualized segment of abdominal aorta appear normal. Doppler interrogation of aortic valve reveals no stenosis or insufficiency. The mitral valve is functionally competent as well. There is trace tricuspid insufficiency. Calculated pulmonary artery pressure was within normal limits based on poor quality of TR jet. This should not be considered overly reliable. Evaluation of diastolic function is inconclusive due to underlying atrial fibrillation. CONCLUSIONS: 1. Study is of acceptable technical quality. 2. Normal LV size with mild LVH and grossly preserved LV systolic function. 3. Aortic sclerosis, but no stenosis or insufficiency. 4. No significant mitral and tricuspid valvular disease. 5. Likely normal central venous pressure and probably normal pulmonary artery pressure. 6. Severe biatrial enlargement. COMMENT: Subacute bacterial endocarditis (SBE) prophylaxis is not recommended. The study is suggestive of chronic atrial fibrillation, but does not provide obvious explanation for syncopal event. [facility]
[2019-08-28] MEDS: HumaLOG INSULIN (NovoLOG) PER UNIT SC SCH ×3 (08:34→16:50)
[2019-08-28] MEDS: MEMANTINE 5MG TABLET (NAMENDA) PO SCH ×2 (08:34→21:24)
[2019-08-28] MEDS: ENOXAPARIN 40 MG/0.4 ML SYRINGE (J1650) SC SCH (08:34)
[2019-08-28] MEDS: FOLIC ACID 1 MG TAB PO SCH (08:34)
[2019-08-28] MEDS: ASPIRIN 81 MG ENTERIC TAB PO SCH (08:35)
[2019-08-28] MEDS: BRIMONIDINE 0.1% OPHTH SOLN 5 ML OU SCH ×3 (08:35→21:24)
[2019-08-28] MEDS: OMEPRAZOLE 20 MG CAP PO SCH (08:35)
[2019-08-28] MEDS: QUEtiapine FUMARATE 50 MG TAB PO SCH ×2 (08:35→21:24)
[2019-08-28] MEDS: LISINOPRIL 5 MG TAB PO SCH (08:39)
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
[2019-08-28 12:00] VITALS: BP 135/69
--- NOTE | 2019-08-28 13:34 | REP ---
Left hand four views: There are no comparisons. There is demineralization. There is osteoarthritis of the PIP and DIP articulations. There is osteoarthritis of the index finger MCP articulation. There is slight subluxation of the index finger proximal phalange base radially the head of the metacarpal. There are calcifications along the ulnar aspect of the index finger metacarpal head. These may be post-traumatic changes. There is osteoarthritis at the thumb trapezial metacarpal joint. There is no acute fracture or dislocation. Impression: Osteoarthritis as described. Changes at the index finger MCP articulation as described. Electronically Signed by Aleksandr Leblanc MD 08/28/2019 01:25 P
[2019-08-28] MEDS ORDERED: predniSONE 20 MG TAB PO ONE (16:00)
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
[2019-08-28 18:09] VITALS: BP_SYST 118; BP_SYST 121; BP_DIAS 69; BP_DIAS 73; BP_DIAS 81
[2019-08-28] MEDS ORDERED: COSOPT OCUMETER PLUS 10ML (DORZOLAMIDE/TIMOLOL) OU SCH (21:00)
[2019-08-28] MEDS: LATANOPROST 0.005% OPHTH SOLN 2.5 ML OU SCH ×2 (21:00→21:24)
[2019-08-28] MEDS: ROSUVASTATIN 10 MG TAB (CRESTOR) PO SCH (21:23)
[2019-08-28] MEDS: DORZOLAMIDE 2% OPHTH SOLN 10 ML BTL OU SCH (21:26)
[2019-08-28 22:00] VITALS: BP 109/61
--- NOTE | 2019-08-29 05:26 | CR ---
DATE OF CONSULTATION: 08/28/2019 REFERRING PHYSICIAN: Dr. Chelsea Hirsch REASON FOR CONSULTATION: Altered mental status, syncopal episode and difficulty walking. 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 He had an episode in May 2019. He was sitting on a stool in the kitchen when he was baking in the kitchen and he tried to get up and his noted that he was turning bo with eyelids drooping and he slumped forward to the kitchen counter. His caught him before he hit his head on the counter. He was making gurgling noises from his throat. His leaned him back into the chair and positioned herself in front of him to prevent him from sliding down to the floor. He woke up with the application of cold towels. He had urinary incontinence. There was no shaking. The patient himself is unable to provide any meaningful history. The history was obtained from electronic medical records and nurses. The patient himself is barely able to follow one-step commands. He is significantly confused and his speech is filled with paraphasic errors. He has difficulty understanding and answering questions. He was noted to have sinus bradycardia yesterday and had two cardiac pauses lasting for 2-2 seconds. DIAGNOSTIC STUDIES: CT scan of head showed moderate cerebral atrophy and small-vessel ischemic disease of the brain. CT angiography of the head and neck showed significant plaque of right vertebral artery and less than 50% bilateral internal carotid artery stenosis and atherosclerosis. MEDICATIONS: - aspirin 81 mg by mouth daily - Aricept 10 mg by mouth daily - Simponi 200 mg as directed every eight weeks - lisinopril 10 mg by mouth daily - Namenda 10 mg by mouth twice a day - Metformin 5 mg by mouth twice a day - methotrexate 12.5 mg by mouth once a week - Myrbetriq 50 mg by mouth daily - Prilosec 20 mg by mouth daily - quetiapine 50 mg by mouth twice a day - brimonidine 0.1% eye drops, one drop in both eyes twice a day - dorzolamide/Timolol eye drops, one drop both eyes twice a day - latanoprost eye drops, one drop both eyes once a day - Crestor 40 mg by mouth daily ALLERGIES: NO KNOWN DRUG ALLERGIES. PAST MEDICAL HISTORY: 1. Syncopal episodes. 2. Atrial fibrillation. 3. Advanced dementia. 4. Dyslipidemia. 5. Hypertension. 6. Sleep apnea. 7. Type II diabetes. 8. Glaucoma. 9. Rheumatoid arthritis. 10. TBI. 11. Acid reflux. 12. Osteoarthritis. 13. Bilateral hip arthroplasty. 14. Bilateral knee replacement. 15. Rotator cuff tear, status post repair. 16. Cataract surgery. 17 Facial surgery. SOCIAL HISTORY: He denies smoking, alcohol or illicit drugs. FAMILY HISTORY: Parents with history of heart disease. He has three children. REVIEW OF SYSTEMS: All systems were reviewed and found be noncontributory except as mentioned in the history of present illness. PHYSICAL EXAMINATION: VITAL SIGNS: Temperature 97.4, pulse 78, respiratory rate 18, 97% saturation on room air. HEART: Irregularly irregular. LUNGS: Clear to auscultation. ABDOMEN: Soft, nontender, nondistended. No pedal edema. MUSCULOSKELETAL: No musculoskeletal abnormalities. No rash. No signs of meningeal irritation. NEUROLOGY: The patient is awake, alert, oriented to self only. He is unable to tell me name of city, state, country, hospital, day, date, month, year, name of president. He is unable to do serial sevens. His recall is 0/3 at five minutes. He cannot spell world backwards. He has difficulty following one step commands. He has difficulty with receptive and expressive parts of speech. He makes paraphasic errors when talking. HEENT: Extraocular muscles are intact. No facial weakness. Uvula midline. No nystagmus. Visual berger are full to confrontation. 5/5 strength in all upper extremities. Deep tendon flexes 1+ throughout. He is gait is unsteady with apraxia. ASSESSMENT: 1. Syncopal episode likely induced by bradycardia and heart block induced by Aricept due to increased cholinergic stimulation and effects on sinoatrial (SA) node and atrioventricular (AV) brisa conduction. 2. Advanced Alzheimer's dementia and gait apraxia. 3. Less than 50% bilateral carotid artery stenosis and the right vertebral artery stenosis. 4. Moderate cerebral atrophy and small-vessel ischemic disease of brain. 5. Atrial fibrillation. PLAN: 1. Discontinue Aricept due to bradycardia and heart block. 2. Continue Namenda 10 mg by mouth twice a day and quetiapine 50 mg by mouth twice a day. 3. Continue aspirin 81 mg by mouth daily and Crestor 40 mg by mouth daily. 4. Keep blood pressure below 140/90. 5. Physical and occupational therapy. He will benefit from placement to an assisted living facility.
[2019-08-29 06:00] VITALS: BP 130/79
[2019-08-29 06:16] LABS: BASO % 0.1 % (0.0-1.0); EOS % 0.1 % (0.0-3.0); HEMATOCRIT 35.2 % (42.0-52.0); HEMOGLOBIN 11.7 g/dl (13.5-17.5); LYMPH % 26.7 % (24.0-44.0); MEAN CORPUSCULAR HEMOGLOBIN 30.9 pg (27.0-33.0); MEAN CORPUSCULAR HGB CONC 33.2 g/dl (32.0-36.5); MEAN CORPUSCULAR VOLUME 92.9 fl (80.0-96.0); MONO # 0.4 10^3/uL (0.0-0.8); MONO % 5.8 % (0.0-5.0); NEUTROPHILS # 5.1 10^3/uL (1.5-8.5); PLATELET COUNT, AUTOMATED 145 10^3/uL (150-450); RED BLOOD COUNT 3.79 10^6/uL (4.30-6.10); WHITE BLOOD COUNT 7.6 10^3/uL (4.0-10.0)
[2019-08-29 06:46] LABS: BLOOD UREA NITROGEN 26 MG/DL (7-18); CARBON DIOXIDE LEVEL 27 MEQ/L (21-32); CHLORIDE LEVEL 107 MEQ/L (98-107); CREATININE FOR GFR 1.21 MG/DL (0.70-1.30); GLOMERULAR FILTRATION RATE > 60.0 (>35); GLUCOSE, FASTING 133 MG/DL (70-100); POTASSIUM SERUM 4.2 MEQ/L (3.5-5.1); SODIUM LEVEL 140 MEQ/L (136-145)
[2019-08-29 07:30] VITALS: BP_SYST 138; BP_SYST 141; BP_DIAS 78; BP_DIAS 88; BP_DIAS 89
[2019-08-29] MEDS: BRIMONIDINE 0.1% OPHTH SOLN 5 ML OU SCH ×2 (08:42→20:31)
[2019-08-29] MEDS: OMEPRAZOLE 20 MG CAP PO SCH (08:43)
[2019-08-29] MEDS: ASPIRIN 81 MG ENTERIC TAB PO SCH (08:43)
[2019-08-29] MEDS: MEMANTINE 5MG TABLET (NAMENDA) PO SCH ×2 (08:43→20:30)
[2019-08-29] MEDS: FOLIC ACID 1 MG TAB PO SCH (08:43)
[2019-08-29] MEDS: ENOXAPARIN 40 MG/0.4 ML SYRINGE (J1650) SC SCH (08:43)
[2019-08-29] MEDS: QUEtiapine FUMARATE 50 MG TAB PO SCH ×2 (08:43→20:30)
[2019-08-29] MEDS: HumaLOG INSULIN (NovoLOG) PER UNIT SC SCH ×3 (08:44→17:30)
[2019-08-29] MEDS: LISINOPRIL 5 MG TAB PO SCH (08:46)
[2019-08-29] MEDS: DORZOLAMIDE 2% OPHTH SOLN 10 ML BTL OU SCH ×2 (08:47→20:31)
[2019-08-29 09:00] VITALS: BP 132/78
--- NOTE | 2019-08-29 12:45 | IPN ---
DATE: 08/29/2019 SUBJECTIVE: Patient still complains of left index finger metacarpophalangeal (MCP) joint pain. Improved today with less swelling, less redness. No fever or chills overnight. PHYSICAL EXAMINATION: VITAL SIGNS: Temperature 98.2, pulse 81, respiratory rate 18, blood pressure 132/78, 95% on room air. GENERAL: Patient is awake, alert and oriented to himself, disoriented to time and place, unable to state the date. He is cooperative. Face is symmetric. The patient has fluent speech. Tongue is midline. Neck is supple, full range of motion. No cervical lymphadenopathy or thyromegaly. Lungs clear to auscultation, no wheezes, rales or rhonchi. Heart S1, S2 irregularly irregular. Abdomen is obese, soft, nontender, nondistended. No lower extremity edema. LABORATORY DATA: White count 7.6, hemoglobin 11, hematocrit 35, platelet count 145. 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 CURRENT ISSUES: 1. Syncope. Most likely secondary to adverse affect from timolol and Aricept, both of which have been discontinued. The patient had a sinus pause of 2.2, but was hemodynamically stable on 08/28/2019. No pacer indication per Dr. Gregorio unless the patient develops hemodynamic compromise, and 5 seconds or more with a sinus pause. The patient was orthostatic on admission, but has been much more stable. He has been encouraged to take oral intake. Timolol has been discontinued. Echo was unremarkable source of the patient's syncopal episode, sinus pause as an adverse affect of donepezil given at the correct dose and frequency. Discussed with both Dr. Gregorio patient access associate pest control chemical technician and Dr. Thompson, neurologist, both of them agree with discontinuation of the drug. No recurrent sinus pauses on telemetry. 2. Orthostatic hypotension. The patient's timolol eye drops have been discontinued with okay by Dr. Rick, the patient's executive administrator in [place]. 3. Gait and balance. Per neurology, continue all other medications as previously prescribed. CT head angio shows heavy calcification of left vertebral body, no cerebellar stroke. CT neck less than 50% carotid artery stenosis. The patient does have chronic small vessel ischemic disease and is continued on aspirin. 4. Chronic atrial fibrillation. Currently controlled heart rate on no medications. He did have one episode of 120 on telemetry yesterday, but it was very brief and nonsustained. May need to start on metoprolol. 5. Dyslipidemia. On statin medications. 6. Diabetes. The patient's metformin was held due to recent contrast studies. CT angio of the head and neck. 7. Glaucoma. The patient's timolol was discontinued, which was okay with the patient's executive administrator. 8. RA. The patient has a rheumatology followup. 9. Left index MCP joint swelling. Warm compresses. X-rays show subluxation. Short course of prednisone.
[2019-08-29 14:00] VITALS: BP 95/61
[2019-08-29] MEDS ORDERED: MOM 30ML SUSPENSION UDC PO PRN (15:30)
[2019-08-29] MEDS ORDERED: ACETAMINOPHEN TAB 650MG DOSE (2X325MG) PO PRN (15:30)
[2019-08-29] MEDS: predniSONE 20 MG TAB PO SCH (16:15)
[2019-08-29 16:20] LABS: HEMATOCRIT 37.3 % (42.0-52.0); HEMOGLOBIN 12.3 g/dl (13.5-17.5); MEAN CORPUSCULAR HEMOGLOBIN 31.5 pg (27.0-33.0); MEAN CORPUSCULAR VOLUME 95.6 fl (80.0-96.0); PLATELET COUNT, AUTOMATED 155 10^3/uL (150-450); WHITE BLOOD COUNT 8.9 10^3/uL (4.0-10.0)
[2019-08-29] MEDS: ROSUVASTATIN 10 MG TAB (CRESTOR) PO SCH (20:30)
[2019-08-29] MEDS: LATANOPROST 0.005% OPHTH SOLN 2.5 ML OU SCH (20:31)
[2019-08-29 22:00] VITALS: BP 104/68
[2019-08-30 00:06] LABS: Lyme Disease IgG/IgM Antibodie <0.91 ISR (0.00-0.90); Lyme Disease IgM Ab Quantitati <0.80 index (0.00-0.79)
[2019-08-30 06:00] VITALS: BP 121/69
[2019-08-30] MEDS: ENOXAPARIN 40 MG/0.4 ML SYRINGE (J1650) SC SCH (08:59)
[2019-08-30] MEDS: predniSONE 20 MG TAB PO SCH (09:00)
[2019-08-30] MEDS: HumaLOG INSULIN (NovoLOG) PER UNIT SC SCH ×3 (09:00→17:54)
[2019-08-30] MEDS: FOLIC ACID 1 MG TAB PO SCH (09:00)
[2019-08-30] MEDS: OMEPRAZOLE 20 MG CAP PO SCH (09:00)
[2019-08-30] MEDS: QUEtiapine FUMARATE 50 MG TAB PO SCH ×2 (09:00→21:00)
[2019-08-30] MEDS: ASPIRIN 81 MG ENTERIC TAB PO SCH (09:00)
[2019-08-30] MEDS: MEMANTINE 5MG TABLET (NAMENDA) PO SCH ×2 (09:00→21:00)
[2019-08-30] MEDS: LISINOPRIL 5 MG TAB PO SCH (09:00)
[2019-08-30] MEDS: DORZOLAMIDE 2% OPHTH SOLN 10 ML BTL OU SCH ×2 (09:01→21:00)
[2019-08-30] MEDS: BRIMONIDINE 0.1% OPHTH SOLN 5 ML OU SCH ×2 (09:01→21:00)
[2019-08-30] MEDS: LATANOPROST 0.005% OPHTH SOLN 2.5 ML OU SCH (21:00)
[2019-08-30] MEDS: ROSUVASTATIN 10 MG TAB (CRESTOR) PO SCH (21:00)
--- NOTE | 2019-08-30 21:11 | IPN ---
DATE: 08/30/2019 SUBJECTIVE: The patient states that the left index metacarpophalangeal joint is significantly improved and currently back to baseline. He is able to flex and extend without difficulty. He has been sleeping well and eating well. He has no complaints of diarrhea or constipation. He is quite forgetful at times but says that this is chronic. at bedside is quite concerned about being transferred to a custodial outside of [place] as it would be difficult for him to visit him daily. PHYSICAL EXAMINATION: VITAL SIGNS: Temperature 97.4, pulse 68, respiratory rate 17, blood pressure 121/69, 99% on room air. GENERAL: Awake, alert, oriented to person. The patient is quite forgetful, he is disoriented to time and place. He is answering questions appropriately. He is cooperative and not belligerent. He has fluent speech. Face is symmetric. Tongue is midline. No cervical lymphadenopathy, thyromegaly. No jugular venous distention (JVD). Neck is supple. LUNGS: No wheezing, rales or rhonchi. Clear to auscultation. Air entry is equal bilaterally. HEART: Irregularly irregular. S1, S2. ABDOMEN: Obese, soft, nontender, nondistended. EXTREMITIES: No cyanosis, clubbing or any pitting edema. Laboratory data, microbiology and imaging studies have all been reviewed. ASSESSMENT AND PLAN: 84-year-old male with a history of advanced dementia, previously on Timolol and Aricept, which has recently been discontinued, possible vascular dementia, follows with [facility], dyslipidemia, hypertension, atrial fibrillation on chronic aspirin, recurrent falls and not a candidate for anticoagulation, rheumatoid arthritis on Simponi and methotrexate, history of traumatic brain injury in 1953, was brought after two syncopal episodes. The patient was found to have the following issues: 1. Syncope secondary to adverse effect from Timolol and Aricept, both of which have been discontinued. The patient did have a sinus pause of 2.2 seconds, which has resolved after discontinuation of the patient's Aricept. Per Dr. Gregorio, the patient is not a candidate for pacer placement because he does not have 5 second sinus pause and was not hemodynamically compromised. The patient was orthostatic on admission but it has resolved once we discontinued the patient's Timolol. Neurology was consulted and agreed with discontinuation of donepezil. 2. Orthostatic hypotension, resolved. Encouraged oral intake and discontinue the patient's Timolol. 3. Gait imbalance. Per neurology, no further workup. CT of head angio shows heavy calcification in left vertebral body, no cerebellar strokes. CT of the neck has less than 50% carotid artery stenosis. The patient will require placement in a custodial as his is unable to provide care for him at home. 4. Chronic atrial fibrillation. Currently rate controlled on no rate controlling medications. He had an episode of 120 on telemetry 2 days ago but none since. Telemetry has been discontinued. He is currently only on aspirin as he is at increased risk of intracranial bleeding with recurrent falls at home. 5. Glaucoma. Timolol was discontinued due to hypotension and syncopal episodes. This was okay with the patient's account maintenance representative. Per the patient's , she wants all the eye drops to be spaced out every 5 minutes when given. 6. Rheumatoid arthritis with exacerbation of the left index finger, metacarpophalangeal joint. Significantly improved and back to baseline with short course of prednisone. DISPOSITION: The patient may be changed to alternate level of care (ALC)/detention facility (SNF) status as the patient has no acute medical issues and is awaiting placement at [facility]. [place]
[2019-08-31 06:00] VITALS: BP 129/90
[2019-08-31] MEDS: ENOXAPARIN 40 MG/0.4 ML SYRINGE (J1650) SC SCH (08:43)
[2019-08-31] MEDS: HumaLOG INSULIN (NovoLOG) PER UNIT SC SCH ×3 (08:43→17:04)
[2019-08-31] MEDS: OMEPRAZOLE 20 MG CAP PO SCH (08:43)
[2019-08-31] MEDS: MEMANTINE 5MG TABLET (NAMENDA) PO SCH ×2 (08:43→20:11)
[2019-08-31] MEDS: QUEtiapine FUMARATE 50 MG TAB PO SCH ×2 (08:43→20:11)
[2019-08-31] MEDS: predniSONE 20 MG TAB PO SCH (08:43)
[2019-08-31] MEDS: FOLIC ACID 1 MG TAB PO SCH (08:44)
[2019-08-31] MEDS: ASPIRIN 81 MG ENTERIC TAB PO SCH (08:44)
[2019-08-31] MEDS: LISINOPRIL 5 MG TAB PO SCH (08:44)
[2019-08-31] MEDS: DORZOLAMIDE 2% OPHTH SOLN 10 ML BTL OU SCH ×2 (08:44→20:12)
[2019-08-31] MEDS: BRIMONIDINE 0.1% OPHTH SOLN 5 ML OU SCH ×2 (08:45→20:11)
[2019-08-31] MEDS: ROSUVASTATIN 10 MG TAB (CRESTOR) PO SCH (20:11)
[2019-08-31] MEDS: LATANOPROST 0.005% OPHTH SOLN 2.5 ML OU SCH (20:12)
[2019-09-01 06:00] VITALS: BP 128/63
[2019-09-01] MEDS: BRIMONIDINE 0.1% OPHTH SOLN 5 ML OU SCH ×2 (09:11→20:10)
[2019-09-01] MEDS: ENOXAPARIN 40 MG/0.4 ML SYRINGE (J1650) SC SCH (09:12)
[2019-09-01] MEDS: HumaLOG INSULIN (NovoLOG) PER UNIT SC SCH ×3 (09:12→17:35)
[2019-09-01] MEDS: FOLIC ACID 1 MG TAB PO SCH (09:13)
[2019-09-01] MEDS: ASPIRIN 81 MG ENTERIC TAB PO SCH (09:13)
[2019-09-01] MEDS: OMEPRAZOLE 20 MG CAP PO SCH (09:13)
[2019-09-01] MEDS: METHOTREXATE 2.5 MG TAB (J8610 PER 2.5MG) PO SCH (09:14)
[2019-09-01] MEDS: QUEtiapine FUMARATE 50 MG TAB PO SCH ×2 (09:14→20:10)
[2019-09-01] MEDS: MEMANTINE 5MG TABLET (NAMENDA) PO SCH ×2 (09:14→20:10)
[2019-09-01] MEDS: LISINOPRIL 5 MG TAB PO SCH (09:16)
[2019-09-01] MEDS: DORZOLAMIDE 2% OPHTH SOLN 10 ML BTL OU SCH ×2 (09:22→20:10)
[2019-09-01] MEDS: predniSONE 5 MG TAB PO SCH (10:01)
[2019-09-01] MEDS: ROSUVASTATIN 10 MG TAB (CRESTOR) PO SCH (20:10)
[2019-09-01] MEDS: LATANOPROST 0.005% OPHTH SOLN 2.5 ML OU SCH (20:10)
[2019-09-02 06:00] VITALS: BP 141/83
[2019-09-02] MEDS: HumaLOG INSULIN (NovoLOG) PER UNIT SC SCH ×3 (10:03→17:54)
[2019-09-02] MEDS: ENOXAPARIN 40 MG/0.4 ML SYRINGE (J1650) SC SCH (10:03)
[2019-09-02] MEDS: OMEPRAZOLE 20 MG CAP PO SCH (10:04)
[2019-09-02] MEDS: MEMANTINE 5MG TABLET (NAMENDA) PO SCH ×2 (10:04→20:25)
[2019-09-02] MEDS: QUEtiapine FUMARATE 50 MG TAB PO SCH ×2 (10:04→20:24)
[2019-09-02] MEDS: FOLIC ACID 1 MG TAB PO SCH (10:04)
[2019-09-02] MEDS: ASPIRIN 81 MG ENTERIC TAB PO SCH (10:05)
[2019-09-02] MEDS: LISINOPRIL 5 MG TAB PO SCH (10:05)
[2019-09-02] MEDS: predniSONE 5 MG TAB PO SCH (10:06)
[2019-09-02] MEDS: BRIMONIDINE 0.1% OPHTH SOLN 5 ML OU SCH ×2 (10:07→22:02)
[2019-09-02] MEDS: DORZOLAMIDE 2% OPHTH SOLN 10 ML BTL OU SCH ×2 (10:07→22:02)
[2019-09-02 16:02] LABS: HEMOGLOBIN 12.9 g/dl (13.5-17.5); MEAN CORPUSCULAR HEMOGLOBIN 31.5 pg (27.0-33.0); MEAN CORPUSCULAR HGB CONC 33.1 g/dl (32.0-36.5); MEAN CORPUSCULAR VOLUME 95.1 fl (80.0-96.0); PLATELET COUNT, AUTOMATED 148 10^3/uL (150-450); WHITE BLOOD COUNT 6.6 10^3/uL (4.0-10.0)
[2019-09-02 16:29] LABS: BLOOD UREA NITROGEN 21 MG/DL (7-18); CALCIUM LEVEL 8.8 MG/DL (8.8-10.2); CARBON DIOXIDE LEVEL 30 MEQ/L (21-32); CHLORIDE LEVEL 105 MEQ/L (98-107); CREATININE FOR GFR 1.15 MG/DL (0.70-1.30); GLOMERULAR FILTRATION RATE > 60.0 (>35); GLUCOSE, FASTING 155 MG/DL (70-100); POTASSIUM SERUM 4.5 MEQ/L (3.5-5.1); SODIUM LEVEL 141 MEQ/L (136-145)
[2019-09-02] MEDS: ROSUVASTATIN 10 MG TAB (CRESTOR) PO SCH (20:24)
[2019-09-02] MEDS: LATANOPROST 0.005% OPHTH SOLN 2.5 ML OU SCH (22:02)
[2019-09-03 06:00] VITALS: BP 108/64
[2019-09-03] MEDS: HumaLOG INSULIN (NovoLOG) PER UNIT SC SCH ×3 (08:20→18:20)
[2019-09-03] MEDS: OMEPRAZOLE 20 MG CAP PO SCH (08:20)
[2019-09-03] MEDS: MEMANTINE 5MG TABLET (NAMENDA) PO SCH ×2 (08:21→22:07)
[2019-09-03] MEDS: QUEtiapine FUMARATE 50 MG TAB PO SCH ×2 (08:21→22:07)
[2019-09-03] MEDS: FOLIC ACID 1 MG TAB PO SCH (08:22)
[2019-09-03] MEDS: LISINOPRIL 5 MG TAB PO SCH (08:22)
[2019-09-03] MEDS: ASPIRIN 81 MG ENTERIC TAB PO SCH (08:22)
[2019-09-03] MEDS: predniSONE 10 MG TAB PO SCH (08:22)
[2019-09-03] MEDS: ENOXAPARIN 40 MG/0.4 ML SYRINGE (J1650) SC SCH (08:23)
[2019-09-03] MEDS: DORZOLAMIDE 2% OPHTH SOLN 10 ML BTL OU SCH ×2 (08:23→22:08)
[2019-09-03] MEDS: BRIMONIDINE 0.1% OPHTH SOLN 5 ML OU SCH ×2 (08:23→22:09)
--- NOTE | 2019-09-03 10:48 | IPN ---
DATE OF SERVICE: 09/03/2019 SUBJECTIVE: The patient denies any shortness of breath, chest pain, pressure, tightness, lightheadedness. No nausea, vomiting, diarrhea, abdominal pain. Tolerating his diet well. The patient's pain at the left metacarpophalangeal (MCP) joint of the index finger has resolved, status post prednisone. Appetite is good. He is cooperative with physical therapy. He is still forgetful and disoriented. PHYSICAL EXAMINATION: Temperature 97.9, pulse 79, respiratory rate 18, blood pressure 108/64, 98% on room air. GENERALLY: The patient is awake, alert, oriented to himself only. He is cooperative. Answering questions appropriately. Speech is fluent. Face is symmetric. No jugular venous distention (JVD), thyromegaly. Moist mucous membranes. LUNGS: Are clear to auscultation. No wheezing, rales, or rhonchi. HEART: S1, S2. Irregularly irregular. ABDOMEN: Obese, soft, nontender, nondistended. Positive bowel sounds times four quadrants. No abdominal bruit. No hepatosplenomegaly. No rebound, guarding. EXTREMITIES: No cyanosis, clubbing, or pitting edema. LABORATORY DATA: 09/02/2019 white count is 6.6, hemoglobin 12, hematocrit 39, platelet count 148. Sodium 141, potassium 4.5, chloride 105, bicarbonate 30, BUN 21, creatinine 1.15, glucose of 155, TSH of 2.1. ASSESSMENT AND PLAN: This is an 84-year-old male, previously lives at home with his , now with advancing dementia, presented with a vasovagal with syncope, orthostatic hypertension though to be secondary to timolol and Aricept. Electrocardiogram (EKG) noted second sinus pause. Currently awaiting placement at [facility], which is planned for 09/10/2019. IMPRESSION: 1. Syncope secondary to adverse effect from timolol and Aricept, both of which have been discontinued and were given at the correct dose and frequency. On telemetry, the patient had a sinus pause of 2.2 seconds, which resolved after discontinuation of the Aricept, which Dr. Gregorio, as well as Dr. Thompson, local driver and neurologist, respectively, both agreed with. The patient's orthostasis has resolved after discontinuation of the timolol, which the librarian head in [place] agreed with. 2. Orthostatic hypotension, resolved. Currently tolerating his diet well. 3. Gait imbalance. Per neurology, no further workup. CT angiography shows heavy calcification in left vertebral body with no cerebellar strokes. Currently awaiting placement to [facility]. 4. Chronic atrial fibrillation (AFib), rate controlled. Currently on no medications. He is only on aspirin due to increased risk of intracranial hemorrhage with recurrent falls. 5. Rheumatoid arthritis with swelling of the left index finger, MCP joint, resolved with a short course of prednisone. He is continued on his home dose of methotrexate weekly and Simponi. 6. Glaucoma. Timolol was discontinued due to hypotension and syncopal episode. This was approved by his librarian head in [place], the patient's , and other eyedrops may be continued. DISPOSITION: He continues to be on alternate level of care (ALC)/halfway facility (SNF) status, awaiting placement to [facility] on 09/10/2019. [place]
[2019-09-03] MEDS: ROSUVASTATIN 10 MG TAB (CRESTOR) PO SCH (22:08)
[2019-09-03] MEDS: LATANOPROST 0.005% OPHTH SOLN 2.5 ML OU SCH (22:08)
[2019-09-04 06:00] VITALS: BP 140/80
[2019-09-04] MEDS: HumaLOG INSULIN (NovoLOG) PER UNIT SC SCH ×3 (07:30→17:28)
[2019-09-04] MEDS: OMEPRAZOLE 20 MG CAP PO SCH (07:49)
[2019-09-04] MEDS: MEMANTINE 5MG TABLET (NAMENDA) PO SCH ×2 (07:49→22:09)
[2019-09-04] MEDS: predniSONE 10 MG TAB PO SCH (07:50)
[2019-09-04] MEDS: QUEtiapine FUMARATE 50 MG TAB PO SCH ×2 (07:50→22:09)
[2019-09-04] MEDS: LISINOPRIL 5 MG TAB PO SCH (07:50)
[2019-09-04] MEDS: ASPIRIN 81 MG ENTERIC TAB PO SCH (07:50)
[2019-09-04] MEDS: FOLIC ACID 1 MG TAB PO SCH (07:50)
[2019-09-04] MEDS: BRIMONIDINE 0.1% OPHTH SOLN 5 ML OU SCH ×2 (07:55→22:10)
[2019-09-04] MEDS: DORZOLAMIDE 2% OPHTH SOLN 10 ML BTL OU SCH ×2 (07:55→22:10)
[2019-09-04] MEDS: ENOXAPARIN 40 MG/0.4 ML SYRINGE (J1650) SC SCH (09:00)
[2019-09-04] MEDS: ROSUVASTATIN 10 MG TAB (CRESTOR) PO SCH (22:09)
[2019-09-04] MEDS: LATANOPROST 0.005% OPHTH SOLN 2.5 ML OU SCH (22:09)
[2019-09-05 06:00] VITALS: BP 108/66
[2019-09-05] MEDS: HumaLOG INSULIN (NovoLOG) PER UNIT SC SCH ×3 (07:30→17:47)
[2019-09-05] MEDS: predniSONE 5 MG TAB PO SCH (07:51)
[2019-09-05] MEDS: QUEtiapine FUMARATE 50 MG TAB PO SCH ×2 (07:51→21:00)
[2019-09-05] MEDS: OMEPRAZOLE 20 MG CAP PO SCH (07:51)
[2019-09-05] MEDS: MEMANTINE 5MG TABLET (NAMENDA) PO SCH ×2 (07:51→21:00)
[2019-09-05] MEDS: ASPIRIN 81 MG ENTERIC TAB PO SCH (07:52)
[2019-09-05] MEDS: DORZOLAMIDE 2% OPHTH SOLN 10 ML BTL OU SCH ×2 (07:52→21:00)
[2019-09-05] MEDS: FOLIC ACID 1 MG TAB PO SCH (07:52)
[2019-09-05] MEDS: BRIMONIDINE 0.1% OPHTH SOLN 5 ML OU SCH ×2 (07:52→21:00)
[2019-09-05] MEDS: LISINOPRIL 5 MG TAB PO SCH (07:52)
[2019-09-05] MEDS: ENOXAPARIN 40 MG/0.4 ML SYRINGE (J1650) SC SCH (07:58)
[2019-09-05 15:34] LABS: HEMATOCRIT 37.7 % (42.0-52.0); HEMOGLOBIN 12.5 g/dl (13.5-17.5); MEAN CORPUSCULAR HEMOGLOBIN 31.3 pg (27.0-33.0); MEAN CORPUSCULAR HGB CONC 33.2 g/dl (32.0-36.5); MEAN CORPUSCULAR VOLUME 94.3 fl (80.0-96.0); PLATELET COUNT, AUTOMATED 146 10^3/uL (150-450); WHITE BLOOD COUNT 9.1 10^3/uL (4.0-10.0)
[2019-09-05] MEDS: LATANOPROST 0.005% OPHTH SOLN 2.5 ML OU SCH (21:00)
[2019-09-05] MEDS: ROSUVASTATIN 10 MG TAB (CRESTOR) PO SCH (21:00)
[2019-09-06 06:00] VITALS: BP 128/74
[2019-09-06] MEDS: HumaLOG INSULIN (NovoLOG) PER UNIT SC SCH ×3 (07:30→17:25)
[2019-09-06] MEDS: LISINOPRIL 5 MG TAB PO SCH (08:53)
[2019-09-06] MEDS: ASPIRIN 81 MG ENTERIC TAB PO SCH (08:53)
[2019-09-06] MEDS: MEMANTINE 5MG TABLET (NAMENDA) PO SCH ×2 (08:53→20:23)
[2019-09-06] MEDS: OMEPRAZOLE 20 MG CAP PO SCH (08:54)
[2019-09-06] MEDS: ENOXAPARIN 40 MG/0.4 ML SYRINGE (J1650) SC SCH (08:54)
[2019-09-06] MEDS: FOLIC ACID 1 MG TAB PO SCH (08:54)
[2019-09-06] MEDS: predniSONE 5 MG TAB PO SCH (08:54)
[2019-09-06] MEDS: QUEtiapine FUMARATE 50 MG TAB PO SCH ×2 (08:54→20:23)
[2019-09-06] MEDS: BRIMONIDINE 0.1% OPHTH SOLN 5 ML OU SCH ×2 (08:55→20:23)
[2019-09-06] MEDS: DORZOLAMIDE 2% OPHTH SOLN 10 ML BTL OU SCH ×2 (08:55→20:23)
[2019-09-06] MEDS: ROSUVASTATIN 10 MG TAB (CRESTOR) PO SCH (20:23)
[2019-09-06] MEDS: LATANOPROST 0.005% OPHTH SOLN 2.5 ML OU SCH (20:23)
[2019-09-07 06:00] VITALS: BP 149/88
[2019-09-07] MEDS: HumaLOG INSULIN (NovoLOG) PER UNIT SC SCH ×3 (07:30→17:30)
[2019-09-07] MEDS: ASPIRIN 81 MG ENTERIC TAB PO SCH (09:37)
[2019-09-07] MEDS: OMEPRAZOLE 20 MG CAP PO SCH (09:37)
[2019-09-07] MEDS: QUEtiapine FUMARATE 50 MG TAB PO SCH ×2 (09:37→20:22)
[2019-09-07] MEDS: MEMANTINE 5MG TABLET (NAMENDA) PO SCH ×2 (09:37→20:22)
[2019-09-07] MEDS: ENOXAPARIN 40 MG/0.4 ML SYRINGE (J1650) SC SCH (09:37)
[2019-09-07] MEDS: FOLIC ACID 1 MG TAB PO SCH (09:40)
[2019-09-07] MEDS: LISINOPRIL 5 MG TAB PO SCH (09:40)
[2019-09-07] MEDS: DORZOLAMIDE 2% OPHTH SOLN 10 ML BTL OU SCH ×2 (09:41→20:23)
[2019-09-07] MEDS: BRIMONIDINE 0.1% OPHTH SOLN 5 ML OU SCH ×2 (09:41→20:23)
[2019-09-07 14:00] VITALS: BP 135/65
[2019-09-07] MEDS: ROSUVASTATIN 10 MG TAB (CRESTOR) PO SCH (20:22)
[2019-09-07] MEDS: LATANOPROST 0.005% OPHTH SOLN 2.5 ML OU SCH (20:23)
[2019-09-08 06:00] VITALS: BP 127/78
[2019-09-08] MEDS: HumaLOG INSULIN (NovoLOG) PER UNIT SC SCH ×3 (07:30→17:30)
[2019-09-08] MEDS: QUEtiapine FUMARATE 50 MG TAB PO SCH ×2 (09:04→20:58)
[2019-09-08] MEDS: FOLIC ACID 1 MG TAB PO SCH (09:04)
[2019-09-08] MEDS: MEMANTINE 5MG TABLET (NAMENDA) PO SCH ×2 (09:04→20:58)
[2019-09-08] MEDS: OMEPRAZOLE 20 MG CAP PO SCH (09:04)
[2019-09-08] MEDS: ASPIRIN 81 MG ENTERIC TAB PO SCH (09:04)
[2019-09-08] MEDS: LISINOPRIL 5 MG TAB PO SCH (09:06)
[2019-09-08] MEDS: ENOXAPARIN 40 MG/0.4 ML SYRINGE (J1650) SC SCH (09:06)
[2019-09-08] MEDS: DORZOLAMIDE 2% OPHTH SOLN 10 ML BTL OU SCH ×2 (09:13→20:59)
[2019-09-08] MEDS: BRIMONIDINE 0.1% OPHTH SOLN 5 ML OU SCH ×2 (09:13→20:59)
[2019-09-08] MEDS: METHOTREXATE 2.5 MG TAB (J8610 PER 2.5MG) PO SCH (11:11)
[2019-09-08 14:00] VITALS: BP 120/68
[2019-09-08] MEDS: ROSUVASTATIN 10 MG TAB (CRESTOR) PO SCH (20:58)
[2019-09-08] MEDS: LATANOPROST 0.005% OPHTH SOLN 2.5 ML OU SCH (20:58)
[2019-09-09 06:00] VITALS: BP 123/80
[2019-09-09] MEDS: HumaLOG INSULIN (NovoLOG) PER UNIT SC SCH ×3 (07:30→18:20)
[2019-09-09] MEDS: ENOXAPARIN 40 MG/0.4 ML SYRINGE (J1650) SC SCH (09:51)
[2019-09-09] MEDS: DORZOLAMIDE 2% OPHTH SOLN 10 ML BTL OU SCH ×2 (09:51→20:45)
[2019-09-09] MEDS: BRIMONIDINE 0.1% OPHTH SOLN 5 ML OU SCH ×2 (09:51→20:45)
[2019-09-09] MEDS: MEMANTINE 5MG TABLET (NAMENDA) PO SCH ×2 (09:52→20:45)
[2019-09-09] MEDS: LISINOPRIL 5 MG TAB PO SCH (09:52)
[2019-09-09] MEDS: OMEPRAZOLE 20 MG CAP PO SCH (09:52)
[2019-09-09] MEDS: QUEtiapine FUMARATE 50 MG TAB PO SCH ×2 (09:52→20:46)
[2019-09-09] MEDS: ASPIRIN 81 MG ENTERIC TAB PO SCH (09:52)
[2019-09-09] MEDS: FOLIC ACID 1 MG TAB PO SCH (09:53)
[2019-09-09 15:44] LABS: HEMATOCRIT 38.4 % (42.0-52.0); HEMOGLOBIN 12.5 g/dl (13.5-17.5); MEAN CORPUSCULAR HEMOGLOBIN 31.6 pg (27.0-33.0); MEAN CORPUSCULAR HGB CONC 32.6 g/dl (32.0-36.5); MEAN CORPUSCULAR VOLUME 97.2 fl (80.0-96.0); PLATELET COUNT, AUTOMATED 119 10^3/uL (150-450); RED BLOOD COUNT 3.95 10^6/uL (4.30-6.10); WHITE BLOOD COUNT 8.6 10^3/uL (4.0-10.0)
[2019-09-09 16:12] LABS: CALCIUM LEVEL 8.9 MG/DL (8.8-10.2); CREATININE FOR GFR 1.27 MG/DL (0.70-1.30); GLOMERULAR FILTRATION RATE 57.7 (>35)
[2019-09-09] MEDS: LATANOPROST 0.005% OPHTH SOLN 2.5 ML OU SCH (20:45)
[2019-09-09] MEDS: ROSUVASTATIN 10 MG TAB (CRESTOR) PO SCH (20:46)
[2019-09-10 06:00] VITALS: BP 129/84
[2019-09-10] MEDS: HumaLOG INSULIN (NovoLOG) PER UNIT SC SCH ×3 (09:03→17:50)
[2019-09-10] MEDS: MEMANTINE 5MG TABLET (NAMENDA) PO SCH ×2 (09:03→20:00)
[2019-09-10] MEDS: ENOXAPARIN 40 MG/0.4 ML SYRINGE (J1650) SC SCH (09:03)
[2019-09-10] MEDS: OMEPRAZOLE 20 MG CAP PO SCH (09:04)
[2019-09-10] MEDS: LISINOPRIL 5 MG TAB PO SCH (09:04)
[2019-09-10] MEDS: QUEtiapine FUMARATE 50 MG TAB PO SCH ×2 (09:04→20:00)
[2019-09-10] MEDS: FOLIC ACID 1 MG TAB PO SCH (09:04)
[2019-09-10] MEDS: ASPIRIN 81 MG ENTERIC TAB PO SCH (09:04)
[2019-09-10] MEDS: BRIMONIDINE 0.1% OPHTH SOLN 5 ML OU SCH ×2 (10:34→20:00)
[2019-09-10] MEDS: DORZOLAMIDE 2% OPHTH SOLN 10 ML BTL OU SCH ×2 (10:34→20:01)
[2019-09-10] MEDS: ROSUVASTATIN 10 MG TAB (CRESTOR) PO SCH (20:00)
[2019-09-10] MEDS: LATANOPROST 0.005% OPHTH SOLN 2.5 ML OU SCH (20:01)
--- NOTE | 2019-09-10 20:10 | IPNPDOC ---
Date Seen The patient was seen on 09/10/19. Progress Note SUBJECTIVE: Patient has no complaints. Feeling well without any dizziness. No further reports of orthostatic hypotension. OBJECTIVE PHYSICAL EXAMINATION: VITAL SIGNS: Please see below. General: No acute distress, Alert Eyes: Normal sclera, EOMI HENT: Atraumatic Cardiovascular: Normal rate, normal rhythm. Pulmonary: Clear to auscultation b/l, no wheezing GI: Soft, nontender, nondistended Skin: Warm and dry Neuro: CN grossly intact. No focal deficits. Strengths equal b/l. Psych: oriented x 3 LABORATORY DATA, IMAGING STUDIES, MICROBIOLOGY: Please see below. DVT prophylaxis ordered?: Lovenox ASSESSMENT AND PLAN: 1. Syncope/Orthostatic hypotension - Resolved. - Suspected to be 2/2 Aricept and Timolol, had been discontinued. - Plan agreed with neurology and cardiology. 2. gait imbalance. - CT angio showed calcification in L. vertebral body. - PT. 3. Afib - rate controlled. not on AC. - On Aspirin only due to increased risk of intracranial hemorrhage and recurrent falls. 4. Rheumatoid arthritis - c/w home dose methotrexate and Simponi. Dispo: Pending placement to [facility] home. Likely d/c tomorrow. DISPOSITION: . VS, I&O, 24H, [facility] Vital Signs/I&O Vital Signs Date Time Temp Pulse Resp B/P (MAP) Pulse Ox O2 Delivery O2 Flow Rate FiO2 09/10/19 09:04 118/64 09/10/19 06:00 97.1 84 18 97 I&O- Last 24 Hours up to 6 AM 09/10/19 05:59 Intake Total 1030 ml Balance 1030 ml Laboratory Data 24H LABS Laboratory Tests 2 09/10/19 06:03: Bedside Glucose (Misc Panel) 112H 09/10/19 11:16: Bedside Glucose (Misc Panel) 163H 09/10/19 16:50: Bedside Glucose (Misc Panel) 123H 09/10/19 19:18: Bedside Glucose (Misc Panel) 134H ANTHONY MACKEY MD Sep 10, 2019 20:10
[2019-09-11 06:00] VITALS: BP 124/85
[2019-09-11] MEDS: HumaLOG INSULIN (NovoLOG) PER UNIT SC SCH (09:16)
[2019-09-11 09:17] VITALS: BP 124/85
[2019-09-11] MEDS: FOLIC ACID 1 MG TAB PO SCH (09:17)
[2019-09-11] MEDS: LISINOPRIL 5 MG TAB PO SCH (09:17)
[2019-09-11] MEDS: ASPIRIN 81 MG ENTERIC TAB PO SCH (09:17)
[2019-09-11] MEDS: QUEtiapine FUMARATE 50 MG TAB PO SCH (09:17)
[2019-09-11] MEDS: OMEPRAZOLE 20 MG CAP PO SCH (09:17)
[2019-09-11] MEDS: MEMANTINE 5MG TABLET (NAMENDA) PO SCH (09:17)
[2019-09-11] MEDS: ENOXAPARIN 40 MG/0.4 ML SYRINGE (J1650) SC SCH (09:17)
[2019-09-11] MEDS: BRIMONIDINE 0.1% OPHTH SOLN 5 ML OU SCH (09:19)
[2019-09-11] MEDS: DORZOLAMIDE 2% OPHTH SOLN 10 ML BTL OU SCH (09:20)
[2019-09-11] MEDS ORDERED: DORZ2SOL4 OU (10:48)
--- NOTE | 2019-09-11 12:03 | DS.PDOC ---
Discharge Summary General Date of Admission Aug 26, 2019 at 18:30 Date of Discharge 09/11/19 Discharge Summary PROCEDURES PERFORMED DURING STAY: ADMITTING DIAGNOSES: 1. Syncope 2. Orthostatic hypotension 3. Afib 4. Dementia 5. HLD 6. HTN 7. BEV 8. NIDDM 9. Rheumatoid arthritis 10. Glaucoma 11. Hx traumatic brain injury 12. OA 13. GERD DISCHARGE DIAGNOSES: 1. Syncope 2. Orthostatic hypotension 3. Afib 4. Dementia 5. HLD 6. HTN 7. BEV 8. NIDDM 9. Rheumatoid arthritis 10. Glaucoma 11. Hx traumatic brain injury 12. OA 13. GERD COMPLICATIONS/CHIEF COMPLAINT: Dementia Syncope And Collapse. HISTORY OF PRESENT ILLNESS: "84 year old male with PMH of Syncope in May, chronic Atrial fibrillation not on any anticoagulation, Advanced dementia intermittently incontinent., vascular 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 Essential hypertension.Obstructive sleep apnea, [id number] diabetes mellitus, Glaucoma, Rheumatoid arthritis, History of traumatic brain injury in 1949s, Gastroesophageal reflux disease, Osteoarthritis was brought to ED for an episode of syncope at home today. He has about 1 episode every month. Today he was sitting in a stool in the kitchen while his was baking there. He tried to get up but his noticed him turning bo and his eyes drooping he slump forward towards the kitchen counter. His caught hold of him before his head hit the stone counter. He was making gargling noises in his throat. His leaned him back into the chair and positioned herself in front of him to prevent him from sliding down to the floor. Subsequently he woke up after application of cold towel. He had urinary incontinence during the episode but there was no seizure like activity. unsure how long he was passed out for. Patient's dementia has been progressing rapidly and family has applied to [facility] for manager intermediate placement." HOSPITAL COURSE: Patient was evaluated by both neurology and cardiology during course of admission. Noted to have orthostatic hypotension, medications were adjusted including discontinuing Aricept and Timolol. Symptoms had resolved since then and patient had been stable without any complaints of dizziness or further episodes of syncope. He continued to get PT during course of admission. He is discharged to [facility] and to follow up with PMD within 1 week of discharge. DISCHARGE MEDICATIONS: Please see below. ALLERGIES: Please see below. PHYSICAL EXAMINATION ON DISCHARGE: VITAL SIGNS: Please see below. General: No acute distress, Alert Eyes: Normal sclera, EOMI HENT: Atraumatic Cardiovascular: Normal rate, normal rhythm. Pulmonary: Clear to auscultation b/l, no wheezing GI: Soft, nontender, nondistended Skin: Warm and dry Neuro: CN grossly intact. No focal deficits. Strengths equal b/l. Psych: oriented x 3 LABORATORY DATA: Please see below. IMAGING: CT Angio brain- Impression: Vascular calcification in the carotid siphons bilaterally. No evidence of arteriovenous malformation or brewster aneurysm. Neck CTA- Impression: Direct aortic origin left vertebral artery with some calcific plaquing. Heavy calcific plaquing at the origin of the right vertebral artery. Less than 50% narrowing of the internal carotid arteries bilaterally. Otherwise negative. Vascular US- IMPRESSION: Mild to moderate bilateral atherosclerotic changes in the proximal internal carotid arteries bilaterally with mild atherosclerotic changes in the distal left common carotid artery. Stenoses are less than 50% bilaterally at the carotid bifurcations consistent with a mild stenosis using SRU criteria. Hand XR- Impression: Osteoarthritis as described. Changes at the index finger MCP articulation as described. CXR- IMPRESSION: No acute infiltrate. ACTIVITY: [As tolerated]. DIET: Consistent carbohydrate diet DISCHARGE PLAN: Discontinue Aricept and timolol f/u PCP within 1 week DISPOSITION: [facility]. DISCHARGE INSTRUCTIONS: Discontinue Aricept and timolol f/u PCP within 1 week ITEMS TO FOLLOWUP ON ON OUTPATIENT: None DISCHARGE CONDITION: [Stable]. TIME SPENT ON DISCHARGE: 32 minutes. Vital Signs/I&Os Vital Signs Date Time Temp Pulse Resp B/P (MAP) Pulse Ox O2 Delivery O2 Flow Rate FiO2 09/11/19 09:17 124/85 09/11/19 06:00 97.3 69 16 98 I&O- Last 24 Hours up to 6 AM 09/11/19 06:00 Intake Total 1286 ml Output Total 0 ml Balance 1286 ml Laboratory Data Labs 24H Laboratory Tests 2 09/10/19 16:50: Bedside Glucose (Misc Panel) 123H 09/10/19 19:18: Bedside Glucose (Misc Panel) 134H 09/11/19 06:31: Bedside Glucose (Misc Panel) 123H 09/11/19 11:30: Bedside Glucose (Misc Panel) 201H FSBS Laboratory Tests Test 09/10/19 16:50 10/15/19 19:18 09/11/19 06:31 09/11/19 11:30 Range/Units Bedside Glucose (Misc Panel) 123 134 123 201 83-110 MG/DL Discharge Medications Scheduled Aspirin (Aspir 81) 81 Mg Tablet.dr, 81 MG PO DAILY, (Reported) Brimonidine Tartrate (Alphagan P) 0.1% 5ML Drops, 1 DROP OU BID, (Reported) Dorzolamide HCl (Dorzolamide HCl) 2% 10ML Drops, 1 DROP OU BID Folic Acid (Folic Acid) 1 Mg Tablet, 1 MG PO DAILY, (Reported) Golimumab (Simponi) 100 Mg/1 Ml Syringe, 200 MG SC ASDIRECTED, (Reported) EVERY 8 WEEKS - RECEIVED AROUND 2 WEEKS AGO Latanoprost (Xalatan) 0.005% 2.5ML Drops, 1 DROP OU QHS, (Reported) Lisinopril (Lisinopril) 10 Mg Tablet, 5 MG PO DAILY, (Reported) Memantine HCl (Memantine HCl) 10 Mg Tablet, 10 MG PO BID, (Reported) Metformin HCl (Metformin HCl) 500 Mg Tablet, 500 MG PO BID, (Reported) Methotrexate Sodium (Methotrexate) 2.5 Mg Tablet, 12.5 MG PO QWEEK, (Reported) SUNDAYS Mirabegron (Myrbetriq) 50 Mg Tab.er.24h, 50 MG PO DAILY, (Reported) Omeprazole (Omeprazole) 20 Mg Tablet.dr, 20 MG PO DAILY, (Reported) Quetiapine Fumarate (Quetiapine Fumarate) 50 Mg Tablet, 50 MG PO BID, (Reported) Rosuvastatin Calcium (Rosuvastatin Calcium) 40 Mg Tablet, 40 MG PO QHS, (Re ported) Allergies Coded Allergies: donepezil (Verified Adverse Reaction, Severe, sinus pause 2.2 seconds 08/27/19 on telemetry, 08/28/19) timolol (Verified Adverse Reaction, Intermediate, hypotension, 08/28/19) hypotension ANTHONY MACKEY MD Sep 11, 2019 12:03
[2019-10-10] MEDS ORDERED: NON-FORMULARY 1 EA EA PO SCH ×2 (09:00)
== END 2019-09-11 11:59 | DRG 309 ==
LOC: EDBD 15:07 → M ED 15:07 → M ED INP 18:30 → M MSPAV 20:50
PROVIDERS: ADMIT Internal Medicine Nephrology; ATTEND Student in an Organized Health Care Education/Training Program
DX: R00.1 Bradycardia, unspecified (principal); F01.51 Vascular dementia, unspecified severity, with behavioral disturbance; G30.9 Alzheimer's disease, unspecified; T88.7XXA Unspecified adverse effect of drug or medicament, initial encounter; I95.1 Orthostatic hypotension; I48.20 Chronic atrial fibrillation, unspecified; F02.80 Dementia in other diseases classified elsewhere, unspecified severity, without behavioral disturbance, psychotic disturbance, mood disturbance, and anxiety; I10 Essential (primary) hypertension; G47.33 Obstructive sleep apnea (adult) (pediatric); E11.9 Type 2 diabetes mellitus without complications; K21.9 Gastro-esophageal reflux disease without esophagitis; M19.90 Unspecified osteoarthritis, unspecified site; M06.9 Rheumatoid arthritis, unspecified; H40.9 Unspecified glaucoma; E78.5 Hyperlipidemia, unspecified; Z79.899 Other long term (current) drug therapy; Z79.82 Long term (current) use of aspirin; Z88.8 Allergy status to other drugs, medicaments and biological substances; Z96.641 Presence of right artificial hip joint; Z96.651 Presence of right artificial knee joint; Z96.652 Presence of left artificial knee joint; R26.89 Other abnormalities of gait and mobility

== ENCOUNTER → 2019-09-12 | Outpatient (REF) | payer MEDICARE, BC, OTHER ==
[~2019-09-12] MED LIST changes: +DORZ2SOL4 OU; +LISI10TA4 PO; +METF-839 PO; +METH2.5T48 PO; +OMEP20TA PO; +QUET5TAB PO; +ROSU40TA4 PO; +[UNRECOGNIZED DRUG - CODE] SC
[2019-09-12 08:45] LABS: HEMATOCRIT 40.1 % (42.0-52.0); MEAN CORPUSCULAR HEMOGLOBIN 30.7 pg (27.0-33.0); MEAN CORPUSCULAR HGB CONC 32.4 g/dl (32.0-36.5); MEAN CORPUSCULAR VOLUME 94.6 fl (80.0-96.0); PLATELET COUNT, AUTOMATED 142 10^3/uL (150-450); RED BLOOD COUNT 4.24 10^6/uL (4.30-6.10); WHITE BLOOD COUNT 9.2 10^3/uL (4.0-10.0)
[2019-09-12 09:04] LABS: ALBUMIN 3.7 GM/DL (3.2-5.2); ALT/SGPT 27 U/L (12-78); BILIRUBIN,TOTAL 0.9 MG/DL (0.2-1.0); BLOOD UREA NITROGEN 23 MG/DL (7-18); CALCIUM LEVEL 8.5 MG/DL (8.8-10.2); CARBON DIOXIDE LEVEL 27 MEQ/L (21-32); CHLORIDE LEVEL 107 MEQ/L (98-107); CHOLESTEROL LEVEL 97 MG/DL (<200); CHOLESTEROL RISK RATIO 2.108 (<5); CREATININE FOR GFR 1.18 MG/DL (0.70-1.30); GLOMERULAR FILTRATION RATE > 60.0 (>35); GLUCOSE, FASTING 114 MG/DL (70-100); HDL CHOLESTEROL 46 MG/DL (>40); LDL CHOLESTEROL 27 MG/DL (<100); NON-HDL-C 51 MG/DL; POTASSIUM SERUM 4.3 MEQ/L (3.5-5.1); SODIUM LEVEL 140 MEQ/L (136-145); TOTAL PROTEIN 7.5 GM/DL (6.4-8.2); TRIGLYCERIDES LEVEL 120 MG/DL (<150)
[2019-09-12 09:25] LABS: HEMOGLOBIN A1c 6.2 %
== END ==
LOC: SKLAB6 07:00
PROVIDERS: ATTEND Internal Medicine
DX: Z79.899 Other long term (current) drug therapy (principal)

== ENCOUNTER → 2019-10-10 | Outpatient (REF) | payer MEDICARE, BC, OTHER ==
[~2019-10-10] MED LIST changes: +OMEP-358 PO; -OMEP20TA PO
[2019-10-10 09:11] LABS: HEMATOCRIT 39.9 % (42.0-52.0); HEMOGLOBIN 13.1 g/dl (13.5-17.5); MEAN CORPUSCULAR HEMOGLOBIN 30.5 pg (27.0-33.0); MEAN CORPUSCULAR HGB CONC 32.8 g/dl (32.0-36.5); MEAN CORPUSCULAR VOLUME 92.8 fl (80.0-96.0); PLATELET COUNT, AUTOMATED 175 10^3/uL (150-450); WHITE BLOOD COUNT 9.4 10^3/uL (4.0-10.0)
== END ==
LOC: SKLAB6 07:00
PROVIDERS: ATTEND Internal Medicine
DX: Z79.899 Other long term (current) drug therapy (principal)

== ENCOUNTER → 2019-11-07 | Outpatient (REF) | payer MEDICARE, BC, OTHER ==
[~2019-11-07] MED LIST changes: +MEMA10TA19 PO; -MEMA1TAB2 PO; -SIMV40TA2; +SIMV40TA20
[2019-11-07 08:32] LABS: HEMATOCRIT 36.9 % (42.0-52.0); HEMOGLOBIN 11.8 g/dl (13.5-17.5); MEAN CORPUSCULAR HEMOGLOBIN 30.1 pg (27.0-33.0); MEAN CORPUSCULAR VOLUME 94.1 fl (80.0-96.0); PLATELET COUNT, AUTOMATED 167 10^3/uL (150-450); RED BLOOD COUNT 3.92 10^6/uL (4.30-6.10); WHITE BLOOD COUNT 7.2 10^3/uL (4.0-10.0)
[2019-11-07 08:57] LABS: BILIRUBIN,TOTAL 0.9 MG/DL (0.2-1.0); CREATININE FOR GFR 1.3 MG/DL (0.70-1.30); GLOMERULAR FILTRATION RATE 56.1 (>35); POTASSIUM SERUM 4.2 MEQ/L (3.5-5.1); TOTAL PROTEIN 7.5 GM/DL (6.4-8.2)
== END ==
LOC: SKLAB6 07:00
PROVIDERS: ATTEND Internal Medicine
DX: Z79.899 Other long term (current) drug therapy (principal); M06.9 Rheumatoid arthritis, unspecified

== ENCOUNTER → 2019-12-05 | Outpatient (REF) | payer MEDICARE, BC, OTHER ==
[2019-12-05 08:16] LABS: HEMATOCRIT 37.1 % (42.0-52.0); HEMOGLOBIN 11.8 g/dl (13.5-17.5); MEAN CORPUSCULAR HEMOGLOBIN 30.6 pg (27.0-33.0); MEAN CORPUSCULAR HGB CONC 31.8 g/dl (32.0-36.5); MEAN CORPUSCULAR VOLUME 96.4 fl (80.0-96.0); PLATELET COUNT, AUTOMATED 179 10^3/uL (150-450); RED BLOOD COUNT 3.85 10^6/uL (4.30-6.10); WHITE BLOOD COUNT 9.2 10^3/uL (4.0-10.0)
== END ==
LOC: SKLAB6 07:00
PROVIDERS: ATTEND Internal Medicine
DX: E11.9 Type 2 diabetes mellitus without complications (principal); K21.9 Gastro-esophageal reflux disease without esophagitis; I10 Essential (primary) hypertension

== ENCOUNTER → 2019-12-09 | Outpatient (REF) | payer MEDICARE, BC, OTHER ==
[2019-12-09 12:09] LABS: BASO % 0.3 % (0.0-1.0); EOS # 0.1 10^3/uL (0.0-0.5); EOS % 1.6 % (0.0-3.0); HEMOGLOBIN 11.6 g/dl (13.5-17.5); LYMPH # 2.7 10^3/uL (1.5-5.0); LYMPH % 33.6 % (24.0-44.0); MEAN CORPUSCULAR HEMOGLOBIN 31.7 pg (27.0-33.0); MEAN CORPUSCULAR HGB CONC 33.1 g/dl (32.0-36.5); MEAN CORPUSCULAR VOLUME 95.6 fl (80.0-96.0); MONO # 0.6 10^3/uL (0.0-0.8); MONO % 7.4 % (0.0-5.0); NEUTROPHILS # 4.5 10^3/uL (1.5-8.5); NEUTROPHILS % 56.8 % (36.0-66.0); PLATELET COUNT, AUTOMATED 174 10^3/uL (150-450); RED BLOOD COUNT 3.66 10^6/uL (4.30-6.10); WHITE BLOOD COUNT 7.9 10^3/uL (4.0-10.0)
[2019-12-09 12:36] LABS: ERYTHROCYTE SEDIMENTATION RATE 48 mm/hr (0-20)
[2019-12-09 12:44] LABS: ALT/SGPT 17 U/L (12-78); BILIRUBIN,TOTAL 0.9 MG/DL (0.2-1.0); BLOOD UREA NITROGEN 28 MG/DL (7-18); C REACTIVE PROTEIN QUANTITATIV < 0.30 MG/DL (0.00-0.30); CALCIUM LEVEL 9.3 MG/DL (8.8-10.2); CARBON DIOXIDE LEVEL 31 MEQ/L (21-32); CHLORIDE LEVEL 104 MEQ/L (98-107); CREATININE FOR GFR 1.32 MG/DL (0.70-1.30); GLOMERULAR FILTRATION RATE 55.1 (>35); GLUCOSE, FASTING 90 MG/DL (70-100); POTASSIUM SERUM 4.8 MEQ/L (3.5-5.1); SODIUM LEVEL 138 MEQ/L (136-145); TOTAL PROTEIN 7.6 GM/DL (6.4-8.2)
[2019-12-09 13:35] LABS: HEPATITIS B SURFACE ANTIBODY NEGATIVE (POSITIVE)
[2019-12-09 14:15] LABS: HEPATITIS C VIRUS ABY INDEX < 0.0 INDEX (<0.8)
== END ==
LOC: SKLAB6 07:00
PROVIDERS: ATTEND Internal Medicine
DX: M05.79 Rheumatoid arthritis with rheumatoid factor of multiple sites without organ or systems involvement (principal); F03.90 Unspecified dementia, unspecified severity, without behavioral disturbance, psychotic disturbance, mood disturbance, and anxiety; Z79.899 Other long term (current) drug therapy

== ENCOUNTER → 2020-01-02 | Outpatient (REF) | payer MEDICARE, BC, OTHER | LOC: SKLAB6 07:00 | PROVIDERS: ATTEND Internal Medicine | DX: Z79.899 Other long term (current) drug therapy (principal) ==

== ENCOUNTER → 2020-01-09 | Outpatient (REF) | payer MEDICARE, BC, OTHER ==
[2020-01-09 07:40] LABS: HEMATOCRIT 31.2 % (42.0-52.0); MEAN CORPUSCULAR HEMOGLOBIN 31.1 pg (27.0-33.0); MEAN CORPUSCULAR HGB CONC 32.1 g/dl (32.0-36.5); MEAN CORPUSCULAR VOLUME 96.9 fl (80.0-96.0); PLATELET COUNT, AUTOMATED 158 10^3/uL (150-450); RED BLOOD COUNT 3.22 10^6/uL (4.30-6.10); WHITE BLOOD COUNT 5.6 10^3/uL (4.0-10.0)
[2020-01-09 07:59] LABS: ALBUMIN 3.7 GM/DL (3.2-5.2); BILIRUBIN,TOTAL 0.8 MG/DL (0.2-1.0); CALCIUM LEVEL 8.7 MG/DL (8.8-10.2); CREATININE FOR GFR 1.23 MG/DL (0.70-1.30); GLOMERULAR FILTRATION RATE 59.8 (>35); POTASSIUM SERUM 4.3 MEQ/L (3.5-5.1); TOTAL PROTEIN 6.9 GM/DL (6.4-8.2)
== END ==
LOC: SKLAB6 07:00
PROVIDERS: ATTEND Internal Medicine
DX: Z79.899 Other long term (current) drug therapy (principal)

== ENCOUNTER → 2020-01-23 | Outpatient (REF) | payer MEDICARE, BC, OTHER | LOC: SKLAB6 13:00 | PROVIDERS: ATTEND Internal Medicine | DX: Z79.899 Other long term (current) drug therapy (principal) ==

== ENCOUNTER → 2020-01-28 | Outpatient (REF) | payer MEDICARE, BC, OTHER ==
[~2020-01-28] MED LIST changes: +ACET1TAB55 PO; +ASPI1CHW3 PO; +ATEN25TA PO; +BENGGEL2 TOP; +BRIM2OPD OU; +DEBR6.5S4 AU; +DULC10SU2 PR; +LISI-1046 PO; +MILKSUS3 PO; +PREPCRE TOP; +SENN-52 PO; +SERO1TAB3 PO
[2020-01-28 13:15] LABS: HEMATOCRIT 29.8 % (42.0-52.0); MEAN CORPUSCULAR HEMOGLOBIN 31.3 pg (27.0-33.0); MEAN CORPUSCULAR HGB CONC 33.6 g/dl (32.0-36.5); MEAN CORPUSCULAR VOLUME 93.1 fl (80.0-96.0); PLATELET COUNT, AUTOMATED 205 10^3/uL (150-450)
[2020-01-28 13:35] LABS: BLOOD UREA NITROGEN 30 MG/DL (7-18); CALCIUM LEVEL 8.5 MG/DL (8.8-10.2); CARBON DIOXIDE LEVEL 27 MEQ/L (21-32); CHLORIDE LEVEL 107 MEQ/L (98-107); CREATININE FOR GFR 1.35 MG/DL (0.70-1.30); GLOMERULAR FILTRATION RATE 53.7 (>35); GLUCOSE, FASTING 120 MG/DL (70-100); POTASSIUM SERUM 4.6 MEQ/L (3.5-5.1); SODIUM LEVEL 137 MEQ/L (136-145)
[2020-01-28 15:00] LABS: VALPROIC ACID (DEPAKOTE) < 3.0 UG/ML (50.0-100.0)
== END ==
LOC: SKLAB6 10:00
PROVIDERS: ATTEND Internal Medicine
DX: R55 Syncope and collapse (principal); G30.1 Alzheimer's disease with late onset

== ENCOUNTER → 2020-01-28 | Outpatient (REF) | payer MEDICARE, BC, OTHER ==
--- NOTE | 2020-01-31 14:37 | ECGEPIP ---
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
== END ==
LOC: SKLAB6 14:45
PROVIDERS: ATTEND Internal Medicine
DX: Z79.899 Other long term (current) drug therapy (principal)

== ENCOUNTER 2020-01-30 10:22 | Inpatient (IN) | payer OTHER, MEDICARE, BC ==
[~2020-01-30] VITALS: Ht 190.5 cm; Wt 93.0 kg
[~2020-01-30 10:22] MED LIST changes: -ACET1TAB55 PO; -ASPI1CHW3 PO; -ATEN25TA PO; -BENGGEL2 TOP; -BRIM2OPD OU; -DEBR6.5S4 AU; -DULC10SU2 PR; -LISI-1046 PO; -MILKSUS3 PO; -PREPCRE TOP; -SENN-52 PO; -SERO1TAB3 PO
[2020-01-30] MEDS ORDERED: LISI-1046 PO (10:54)
[2020-01-30] MEDS ORDERED: BRIM2OPD OU (10:54)
[2020-01-30] MEDS ORDERED: ASPI1CHW3 PO (10:54)
[2020-01-30] MEDS ORDERED: SENN-52 PO (11:04)
[2020-01-30] MEDS ORDERED: ATEN25TA PO (11:04)
[2020-01-30] MEDS ORDERED: MILKSUS3 PO ×2 (11:04)
[2020-01-30] MEDS ORDERED: DULC10SU2 PR (11:04)
[2020-01-30] MEDS ORDERED: DEBR6.5S4 AU (11:04)
[2020-01-30] MEDS ORDERED: PREPCRE TOP (11:04)
[2020-01-30] MEDS ORDERED: SERO1TAB3 PO (11:04)
[2020-01-30] MEDS ORDERED: ACET1TAB55 PO (11:04)
--- NOTE | 2020-01-30 11:15 | REP ---
CHEST, PORTABLE: AP portable view of the chest is performed. There is no acute infiltrate. Cardiac silhouette is mildly prominent. Mediastinal silhouette is unchanged. IMPRESSION: No acute pulmonary disease. Possible mild cardiomegaly. Electronically Signed by Aleksandr Craig MD 01/30/2020 08:04 P
[2020-01-30] MEDS ORDERED: BENGGEL2 TOP (11:22)
[2020-01-30 11:33] LABS: BASO % 0.4 % (0.0-1.0); EOS # 0.1 10^3/uL (0.0-0.5); EOS % 0.8 % (0.0-3.0); HEMATOCRIT 29.6 % (42.0-52.0); HEMOGLOBIN 9.8 g/dl (13.5-17.5); LYMPH # 1.2 10^3/uL (1.5-5.0); LYMPH % 17.3 % (24.0-44.0); MEAN CORPUSCULAR HGB CONC 33.1 g/dl (32.0-36.5); MEAN CORPUSCULAR VOLUME 93.7 fl (80.0-96.0); MONO # 0.5 10^3/uL (0.0-0.8); MONO % 7.5 % (0.0-5.0); NEUTROPHILS # 5.2 10^3/uL (1.5-8.5); NEUTROPHILS % 73.7 % (36.0-66.0); PLATELET COUNT, AUTOMATED 174 10^3/uL (150-450); RED BLOOD COUNT 3.16 10^6/uL (4.30-6.10); WHITE BLOOD COUNT 7.1 10^3/uL (4.0-10.0)
[2020-01-30 12:18] LABS: BLOOD UREA NITROGEN 30 MG/DL (7-18); CALCIUM LEVEL 8.9 MG/DL (8.8-10.2); CARBON DIOXIDE LEVEL 29 MEQ/L (21-32); CHLORIDE LEVEL 105 MEQ/L (98-107); CK-MB VALUE MASS 1.6 NG/ML (<3.6); CPK CREATINE PHOSPHOKINASE 285 U/L (39-308); CREATININE FOR GFR 1.27 MG/DL (0.70-1.30); GLOMERULAR FILTRATION RATE 57.7 (>35); GLUCOSE, FASTING 112 MG/DL (70-100); MAGNESIUM LEVEL 1.9 MG/DL (1.8-2.4); MB/CK RELATIVE INDEX 0.56 (< OR =4); POTASSIUM SERUM 4.3 MEQ/L (3.5-5.1); SODIUM LEVEL 136 MEQ/L (136-145); TROPONIN I < 0.02 NG/ML (< 0.10)
[2020-01-30] MEDS ORDERED: NS 500 ML IV ONE (12:45)
[2020-01-30] MEDS ORDERED: BISACODYL 10 MG SUPP PR PRN (13:15)
[2020-01-30] MEDS ORDERED: ACETAMINOPHEN TAB 650MG DOSE (2X325MG) PO PRN (13:15)
--- NOTE | 2020-01-30 13:25 | HPEPDOC ---
[facility] Medical History & Physical Date of Admission Jan 30, 2020 Date of Service: Jan 30, 2020 History and Physical CHIEF COMPLAINT: Syncope HISTORY OF PRESENT ILLNESS: 84 yo male sent from [facility] usp for two episodes of syncope over the past few days. No clear illiciting factors. Patient is demented and unable to provide any useful information, and is a poor historian. Denies any medical complaints. PAST MEDICAL HISTORY: #HTN #HLD #GERD #BEV #DM #RA #closed TBI #dementia #glaucoma #afib? ALLERGIES: Please see below. REVIEW OF SYSTEMS: Negative except as per HPI. HOME MEDICATIONS: Please see below. PHYSICAL EXAMINATION: VITAL SIGNS: See below General: NAD, lying comfortably in bed, pleasantly confused HEENT: NC/AT, EOMI, PERRL Lungs: CTA B/L Heart: +S1S2, irregularly irregular Abd: soft, NT, +BS, obese Ext: no edema LABORATORY DATA: See below. MICROBIOLOGY: Please see below. ASSESSMENT: 84 yo male with PMHx for HTN, HLD, GERD, BEV, DM, RA, closed TBI, dementia sent from [facility] for syncopal episodes over the past few days, noted to have episode of asystole in ambulance during transfer. #syncope - telemetry monitoring - echocardiogram - possible arrhythmia - holding BB for now - fall precautions - PT/OT - check orthostatics #afib - new? not documented in recent clinic notes - echocardiogram pending - telemetry monitoring - to evaluate utility of anti-coagulation #HTN - continue lisinopril with hold parameters - BB on hold #HLD - continue Crestor #RA - MTX once weekly #DM - home metformin on hold - ISS and FS qac/hs while inpatient #GERD - continue home prilosec #DVT prophylaxis - heparin SC CODE status: MOLST reviewed - DNR/DNI, limited intervention Vital Signs Vital Signs Date Time Temp Pulse Resp B/P (MAP) Pulse Ox O2 Delivery O2 Flow Rate FiO2 01/30/20 11:20 65 116/56 (76) 69 103/68 (80) 01/30/20 10:39 97.9 01/30/20 10:25 14 99 Laboratory Data Labs 24H Laboratory Tests 2 01/30/20 10:48: Bedside Glucose (Misc Panel) 110 01/30/20 11:17: Immature Granulocyte % (Auto) 0.3, Neutrophils (%) (Auto) 73.7H, Lymphocytes (%) (Auto) 17.3L, Monocytes (%) (Auto) 7.5H, Eosinophils (%) (Auto) 0.8, Basophils (%) (Auto) 0.4, Neutrophils # (Auto) 5.2, Lymphocytes # (Auto) 1.2L, Monocytes # (Auto) 0.5, Eosinophils # (Auto) 0.1, Basophils # (Auto) 0.0, Nucleated Red Blood Cells % (auto) 0.0, Anion Gap 2L, Glomerular Filtration Rate 57.7, Calcium Level 8.9, Magnesium Level 1.9, Total Creatine Kinase 285, Creatine Kinase MB 1.6, Creatine Kinase MB Relative Index 0.56, Troponin I < 0.02, Thyroid Stimulating Hormone (TSH) 2.960, Free Thyroxine 1.00 CBC/BMP Laboratory Tests 01/30/20 11:17 Home Medications Scheduled Aspirin (Aspirin) 81 Mg Tab.chew, 81 MG PO DAILY Atenolol (Atenolol) 25 Mg Tablet, 12.5 MG PO QHS Brimonidine Tartrate (Brimonidine Tartrate) 0.15% 5ML Drops, 1 DROP OU BID Carbamide Peroxide (Debrox) 15 Ml Drops, 5 DROP AU BID ordered 01/27/20 take for 4 days Folic Acid (Folic Acid) 1 Mg Tablet, 1 MG PO DAILY Latanoprost (Xalatan) 0.005% 2.5ML Drops, 1 DROP OU QHS Lisinopril (Lisinopril) 2.5 Mg Tablet, 2.5 MG PO QHS Metformin HCl (Metformin HCl) 500 Mg Tablet, 500 MG PO BID Methotrexate Sodium (Methotrexate) 2.5 Mg Tablet, 12.5 MG PO QWEEK SUNDAYS Omeprazole (Omeprazole) 20 Mg Tablet.dr, 20 MG PO DAILY Quetiapine Fumarate (Seroquel) 25 Mg Tablet, 25 MG PO QHS Rosuvastatin Calcium (Rosuvastatin Calcium) 40 Mg Tablet, 40 MG PO QHS Sennosides/Docusate Sodium (Senna Plus Tablet) 1 Each Tablet, 1 TAB PO DAILY Scheduled PRN Acetaminophen (Acetaminophen) 325 Mg Tablet, 650 MG PO Q4H PRN for PAIN OR FEVER Bisacodyl (Dulcolax) 10 Mg Supp.rect, 10 MG [place] DAILY PRN for CONSTIPATION Magnesium Hydroxide (Milk of Magnesia) 400 Mg/5 Ml Oral.susp, 2,400 MG PO DAILY PRN for CONSTIPATION Menthol (Bengay) 5% Gel..gram., 1 DOSE TOP TID PRN for PAIN apply to shoulders and back Phenyleph/Pramoxin/Glycr/W.pet (Preparation H Cream) 26 Gm Cream..g., 1 DOSE TOP BID PRN for HEMORRHOIDS Allergies Coded Allergies: donepezil (Verified Adverse Reaction, Severe, sinus pause 2.2 seconds 08/27/19 on telemetry, 08/28/19) timolol (Verified Adverse Reaction, Intermediate, hypotension, 08/28/19) hypotension A-FIB/CHADSVASC A-FIB History Current/History of A-Fib/PAF?: Yes Current PO Anticoag Therapy: No Age/Risk Factor Scoring CHADSVASC: CHADSVASC Response (Comments) Value Age Risk Factor Age >/= 75 years old 2 Gender Risk Factor Male 0 Hx of CHF No 0 Hx of HTN Yes 1 Hx of Stroke/TIA/or VTE No 0 Hx of Diabetes Yes 1 Hx of Vascular Disease No 0 Total 4 Treatment Treatment ordered: Holding Other Reason Anticoagulant not given: Other Other reason anticoagulant not: pending YOSSI Conley MD Jan 30, 2020 13:25
[2020-01-30] MEDS ORDERED: GLUCOSE 4 GM CHEW TABLET PO PRN (13:30)
[2020-01-30] MEDS ORDERED: DEXTROSE 50% 50 ML SYRINGE IV PRN (13:30)
[2020-01-30] MEDS ORDERED: GLUCAGON FOR INJ 1 MG VIAL (J1610) SC PRN (13:30)
--- NOTE | 2020-01-30 17:23 | ECGEPIP ---
[facility] - ED Test Date: 2020-01-30 Pat Name: LAKISHA MONDRAGON Department: Room: - Gender: Male Bindery Machine Operator: abyadam : 1935 Requested By: Hannah White Order Number: [id number] Reading MD: Crhis Elliott Measurements Intervals [place] Rate: 76 P: NV: 0 QRS: 58 QRSD: 95 T: 0 QT: 405 QTc: 456 Interpretive Statements ATRIAL FIBRILLATION RATE CHANGE COMPARED TO 01/29/20 Electronically Signed on 01-30-2020 17:22:50 EST by Chris Elliott
[2020-01-30] MEDS: HumaLOG INSULIN (NovoLOG) PER UNIT SC SCH (17:30)
[2020-01-30 17:51] LABS: CK-MB VALUE MASS 1.2 NG/ML (<3.6); CPK CREATINE PHOSPHOKINASE 223 U/L (39-308); MB/CK RELATIVE INDEX 0.54 (< OR =4); TROPONIN I < 0.02 NG/ML (< 0.10)
[2020-01-30] MEDS: QUEtiapine FUMARATE 25 MG TAB PO SCH ×2 (18:15→18:28)
[2020-01-30] MEDS ORDERED: HALOPERIDOL 5 MG/ML VIAL (J1630) IV ONE (19:00)
[2020-01-30 20:45] VITALS: BP 132/75
[2020-01-30] MEDS ORDERED: LISINOPRIL *2.5 MG* TAB PO SCH (21:00)
[2020-01-30] MEDS ORDERED: metFORMIN (GLUCOPHAGE) 500 MG TAB PO SCH (21:00)
[2020-01-30] MEDS ORDERED: LATANOPROST 0.005% OPHTH SOLN 2.5 ML OU SCH (21:00)
[2020-01-30] MEDS ORDERED: ROSUVASTATIN 10 MG TAB (CRESTOR) PO SCH (21:00)
[2020-01-30] MEDS: CARBAMIDE PEROXIDE 6.5% OTIC SOLN 15ML AU SCH (21:00)
[2020-01-30] MEDS ORDERED: HumaLOG INSULIN (NovoLOG) PER UNIT SC SCH (21:00)
[2020-01-30] MEDS: BRIMONIDINE 0.15% OPHTH SOLN 5 ML OU SCH (22:25)
[2020-01-31] VITALS: BP 131/74
[2020-01-31 04:00] VITALS: BP 133/81
[2020-01-31 06:10] LABS: HEMATOCRIT 29.5 % (42.0-52.0); HEMOGLOBIN 9.9 g/dl (13.5-17.5); MEAN CORPUSCULAR HGB CONC 33.6 g/dl (32.0-36.5); MEAN CORPUSCULAR VOLUME 92.5 fl (80.0-96.0); PLATELET COUNT, AUTOMATED 149 10^3/uL (150-450); RED BLOOD COUNT 3.19 10^6/uL (4.30-6.10); WHITE BLOOD COUNT 6.3 10^3/uL (4.0-10.0)
[2020-01-31 06:21] LABS: ALBUMIN 3.4 GM/DL (3.2-5.2); ALT/SGPT 20 U/L (12-78); BILIRUBIN,TOTAL 0.7 MG/DL (0.2-1.0); BLOOD UREA NITROGEN 24 MG/DL (7-18); CALCIUM LEVEL 8.2 MG/DL (8.8-10.2); CARBON DIOXIDE LEVEL 24 MEQ/L (21-32); CHLORIDE LEVEL 110 MEQ/L (98-107); CREATININE FOR GFR 1.07 MG/DL (0.70-1.30); GLOMERULAR FILTRATION RATE > 60.0 (>35); GLUCOSE, FASTING 81 MG/DL (70-100); POTASSIUM SERUM 3.9 MEQ/L (3.5-5.1); SODIUM LEVEL 141 MEQ/L (136-145); TOTAL PROTEIN 6.6 GM/DL (6.4-8.2)
[2020-01-31] MEDS: HumaLOG INSULIN (NovoLOG) PER UNIT SC SCH ×2 (07:30→12:37)
[2020-01-31 08:18] VITALS: BP 132/85
[2020-01-31] MEDS ORDERED: FOLIC ACID 1 MG TAB PO SCH (09:00)
[2020-01-31] MEDS ORDERED: OMEPRAZOLE 20 MG CAP PO SCH (09:00)
[2020-01-31] MEDS ORDERED: SENOKOT S TAB PO SCH (09:00)
[2020-01-31] MEDS ORDERED: ASPIRIN 81 MG CHEW TABLET PO SCH (09:00)
[2020-01-31] MEDS: BRIMONIDINE 0.15% OPHTH SOLN 5 ML OU SCH (09:03)
[2020-01-31] MEDS: CARBAMIDE PEROXIDE 6.5% OTIC SOLN 15ML AU SCH (09:04)
[2020-01-31] MEDS ORDERED: HALOPERIDOL 5 MG/ML VIAL (J1630) IV ONE ×2 (09:45→11:15)
--- NOTE | 2020-01-31 10:14 | IPNPDOC ---
Text Note Date of Service The patient was seen on 01/31/20. NOTE Subjective: Patient seen and examined at bedside. Reported episode of agitation last evening, and again early this morning. He did not receive his pm Seroquel. This morning during examination he had no complaints. Pleasantly confused. Objective: PHYSICAL EXAMINATION: VITAL SIGNS: See below General: NAD, sitting comfortably in chair, in good spirits, confused HEENT: NC/AT, EOMI, PERRL Lungs: CTA B/L Heart: +S1S2, irregularly irregular Abd: soft, NT, +BS, obese Ext: no edema ASSESSMENT: 84 yo male with PMHx for HTN, HLD, GERD, BEV, DM, RA, closed TBI, dementia sent from [facility] for syncopal episodes over the past few days, noted to have episode of asystole in ambulance during transfer. #syncope - telemetry monitoring - echocardiogram - possible arrhythmia - holding BB for now - fall precautions - PT/OT - check orthostatics #afib - new? not documented in recent clinic notes - echocardiogram pending - telemetry monitoring - will d/w family regarding anti-coagulation #HTN - continue lisinopril with hold parameters - BB on hold #HLD - continue Crestor #RA - MTX once weekly #DM - home metformin on hold - ISS and FS qac/hs while inpatient #BEV #closed TBI #dementia #glaucoma #GERD - continue home Prilosec #DVT prophylaxis - heparin SC CODE status: MOLST reviewed - DNR/DNI, limited intervention Dispo: pending echocardiogram, further telemetry monitoring VS,Fishbone, I+O VS, Fishbone, I+O Laboratory Tests 01/30/20 11:17 01/31/20 05:48 Vital Signs Date Time Temp Pulse Resp B/P (MAP) Pulse Ox O2 Delivery O2 Flow Rate FiO2 01/31/20 08:18 98.4 78 14 132/85 (101) 98 Room Air I&O- Last 24 Hours up to 6 AM 01/31/20 06:00 Intake Total 0 ml Output Total 0 ml Balance 0 ml YOSSI HUBER MD Jan 31, 2020 10:14
[2020-01-31] MEDS ORDERED: SLF 3 ML SYR IV PRN (11:00)
[2020-01-31] MEDS ORDERED: QUEtiapine FUMARATE 12.5 MG HALF-TAB PO ONE (12:00)
[2020-01-31 12:09] VITALS: BP 112/54
[2020-01-31 13:10] VITALS: BP 112/54
[2020-01-31] MEDS ORDERED: ATENOLOL 12.5MG PER 1/2 TABLET PO ONE (14:00)
[2020-01-31] MEDS ORDERED: SLF 3 ML SYR IV SCH (14:00)
--- NOTE | 2020-02-11 07:35 | DS.PDOC ---
Discharge Summary General Date of Admission Jan 30, 2020 at 13:12 Date of Discharge 01/31/20 Discharge Summary PROCEDURES PERFORMED DURING STAY: [None]. DISCHARGE DIAGNOSES: #HTN #HLD #GERD #BEV #DM #RA #closed TBI #dementia #glaucoma #afib Hospital Course: 84 yo male sent from [facility] alf for two episodes of syncope over the past few days. No clear illiciting factors. Patient is demented and was unable to provide any useful information, and is a poor historian. Denied any medical complaints. Discussed goals of care with family, and agreed for no further testing. Patient discharged back to his alf ([facility]). PHYSICAL EXAMINATION: VITAL SIGNS: See below General: NAD, lying comfortably in bed, pleasantly confused HEENT: NC/AT, EOMI, PERRL Lungs: CTA B/L Heart: +S1S2, irregularly irregular Abd: soft, NT, +BS, obese Ext: no edema DISCHARGE MEDICATIONS: Please see below. ALLERGIES: Please see below. LABORATORY DATA: Please see below. ACTIVITY: [As tolerated]. DISPOSITION: [facility]. ITEMS TO FOLLOWUP ON ON OUTPATIENT: 1. Follow up [facility] PCP in 3-5 days. DISCHARGE CONDITION: [Stable]. TIME SPENT ON DISCHARGE: 35 minutes. Discharge Medications Scheduled Aspirin (Aspirin) 81 Mg Tab.chew, 81 MG PO DAILY, (Reported) Atenolol (Atenolol) 25 Mg Tablet, 12.5 MG PO QHS, (Reported) Brimonidine Tartrate (Brimonidine Tartrate) 0.15% 5ML Drops, 1 DROP OU BID, (Reported) Carbamide Peroxide (Debrox) 15 Ml Drops, 5 DROP AU BID, (Reported) ordered 01/27/20 take for 4 days Folic Acid (Folic Acid) 1 Mg Tablet, 1 MG PO DAILY, (Reported) Latanoprost (Xalatan) 0.005% 2.5ML Drops, 1 DROP OU QHS, (Reported) Lisinopril (Lisinopril) 2.5 Mg Tablet, 2.5 MG PO QHS, (Reported) Metformin HCl (Metformin HCl) 500 Mg Tablet, 500 MG PO BID, (Reported) Methotrexate Sodium (Methotrexate) 2.5 Mg Tablet, 12.5 MG PO QWEEK, (Reported) SUNDAYS Omeprazole (Omeprazole) 20 Mg Tablet.dr, 20 MG PO DAILY, (Reported) Quetiapine Fumarate (Seroquel) 25 Mg Tablet, 25 MG PO QHS, (Reported) Rosuvastatin Calcium (Rosuvastatin Calcium) 40 Mg Tablet, 40 MG PO QHS, (Reported) Sennosides/Docusate Sodium (Senna Plus Tablet) 1 Each Tablet, 1 TAB PO DAILY, (Reported) Scheduled PRN Acetaminophen (Acetaminophen) 325 Mg Tablet, 650 MG PO Q4H PRN for PAIN OR FEVER, (Reported) Bisacodyl (Dulcolax) 10 Mg Supp.rect, 10 MG [place] DAILY PRN for CONSTIPATION, (Reported) Magnesium Hydroxide (Milk of Magnesia) 400 Mg/5 Ml Oral.susp, 2,400 MG PO DAILY PRN for CONSTIPATION, (Reported) Menthol (Bengay) 5% Gel..gram., 1 DOSE TOP TID PRN for PAIN, (Reported) apply to shoulders and back Phenyleph/Pramoxin/Glycr/W.pet (Preparation H Cream) 26 Gm Cream..g., 1 DOSE TOP BID PRN for HEMORRHOIDS, (Reported) Allergies Coded Allergies: donepezil (Verified Adverse Reaction, Severe, sinus pause 2.2 seconds 08/27/19 on telemetry, 08/28/19) timolol (Verified Adverse Reaction, Intermediate, hypotension, 08/28/19) hypotension YOSSI HUBER MD Feb 11, 2020 07:35
== END 2020-01-31 13:18 | DRG 312 ==
LOC: M ED 10:22 → EDBD 10:22 → M ED INP 13:12 → ENRESERVDT 18:07 → ENRESERVTM 18:07 → M PCU 20:33
PROVIDERS: ADMIT Internal Medicine; ATTEND Internal Medicine
DX: R55 Syncope and collapse (principal); E78.5 Hyperlipidemia, unspecified; K21.9 Gastro-esophageal reflux disease without esophagitis; G47.33 Obstructive sleep apnea (adult) (pediatric); E11.9 Type 2 diabetes mellitus without complications; M06.9 Rheumatoid arthritis, unspecified; F03.90 Unspecified dementia, unspecified severity, without behavioral disturbance, psychotic disturbance, mood disturbance, and anxiety; H40.9 Unspecified glaucoma; I10 Essential (primary) hypertension; I48.91 Unspecified atrial fibrillation; Z66 Do not resuscitate; Z79.82 Long term (current) use of aspirin; Z79.899 Other long term (current) drug therapy; Z79.84 Long term (current) use of oral hypoglycemic drugs; Z88.8 Allergy status to other drugs, medicaments and biological substances; Z87.820 Personal history of traumatic brain injury

== ENCOUNTER → 2020-02-11 | Outpatient (REF) | payer OTHER, MEDICARE, BC ==
[~2020-02-11] MED LIST changes: +ACET1TAB55 PO; +ASPI1CHW3 PO; +ATEN25TA PO; +BENGGEL2 TOP; +BRIM2OPD OU; +DEBR6.5S4 AU; +DULC10SU2 PR; +LISI-1046 PO; +MILKSUS3 PO; +PREPCRE TOP; +SENN-52 PO; +SERO1TAB3 PO
[2020-02-11 15:27] LABS: HEMATOCRIT 31.3 % (42.0-52.0); HEMOGLOBIN 10.4 g/dl (13.5-17.5); MEAN CORPUSCULAR HGB CONC 33.2 g/dl (32.0-36.5); MEAN CORPUSCULAR VOLUME 93.4 fl (80.0-96.0); PLATELET COUNT, AUTOMATED 181 10^3/uL (150-450); RED BLOOD COUNT 3.35 10^6/uL (4.30-6.10); WHITE BLOOD COUNT 8.3 10^3/uL (4.0-10.0)
[2020-02-11 15:42] LABS: CALCIUM LEVEL 8.5 MG/DL (8.8-10.2); CREATININE FOR GFR 1.24 MG/DL (0.70-1.30); GLOMERULAR FILTRATION RATE 59.3 (>35); POTASSIUM SERUM 4.4 MEQ/L (3.5-5.1)
--- NOTE | 2020-02-11 16:28 | REP ---
Portable chest x-ray: Single view. History: Cough and congestion. Comparison chest x-ray: January 30, 2020. Findings: There are advanced arthropathy changes at the shoulders again noted. The lungs are symmetrically aerated and clear. The pleural angles are sharp. Heart size is borderline unchanged. No infiltrate is seen. The aorta slightly tortuous. Pulmonary vasculature is not increased. Impression: No infiltrate seen. Electronically Signed by Pato Ro MD 02/11/2020 04:20 P
== END ==
LOC: SKLAB6 11:00
PROVIDERS: ATTEND Internal Medicine
DX: Z79.899 Other long term (current) drug therapy (principal)

== ENCOUNTER → 2020-02-14 | Outpatient (REF) | payer OTHER, MEDICARE, BC ==
[2020-02-14 07:12] LABS: HEMATOCRIT 29.4 % (42.0-52.0); HEMOGLOBIN 9.8 g/dl (13.5-17.5); MEAN CORPUSCULAR HEMOGLOBIN 30.9 pg (27.0-33.0); MEAN CORPUSCULAR HGB CONC 33.3 g/dl (32.0-36.5); MEAN CORPUSCULAR VOLUME 92.7 fl (80.0-96.0); PLATELET COUNT, AUTOMATED 168 10^3/uL (150-450); RED BLOOD COUNT 3.17 10^6/uL (4.30-6.10); WHITE BLOOD COUNT 7.8 10^3/uL (4.0-10.0)
== END ==
LOC: SKLAB6 07:00
PROVIDERS: ATTEND Internal Medicine
DX: Z79.899 Other long term (current) drug therapy (principal)

== ENCOUNTER → 2020-03-05 | Outpatient (REF) | payer OTHER, MEDICARE, BC ==
[2020-03-05 09:32] LABS: HEMATOCRIT 30.4 % (42.0-52.0); HEMOGLOBIN 10.1 g/dl (13.5-17.5); MEAN CORPUSCULAR HGB CONC 33.2 g/dl (32.0-36.5); MEAN CORPUSCULAR VOLUME 93.3 fl (80.0-96.0); PLATELET COUNT, AUTOMATED 202 10^3/uL (150-450); RED BLOOD COUNT 3.26 10^6/uL (4.30-6.10); WHITE BLOOD COUNT 8.7 10^3/uL (4.0-10.0)
[2020-03-05 09:48] LABS: ALBUMIN 3.4 GM/DL (3.2-5.2); ALT/SGPT 21 U/L (12-78); BILIRUBIN,TOTAL 0.7 MG/DL (0.2-1.0); BLOOD UREA NITROGEN 24 MG/DL (7-18); CALCIUM LEVEL 8.5 MG/DL (8.8-10.2); CARBON DIOXIDE LEVEL 27 MEQ/L (21-32); CHLORIDE LEVEL 105 MEQ/L (98-107); CREATININE FOR GFR 1.21 MG/DL (0.70-1.30); GLOMERULAR FILTRATION RATE > 60.0 (>35); GLUCOSE, FASTING 136 MG/DL (70-100); POTASSIUM SERUM 3.9 MEQ/L (3.5-5.1); SODIUM LEVEL 139 MEQ/L (136-145); TOTAL PROTEIN 6.9 GM/DL (6.4-8.2)
[2020-03-05 10:25] LABS: HEMOGLOBIN A1c 6.1 %
== END ==
LOC: SKLAB6 07:00
PROVIDERS: ATTEND Internal Medicine
DX: G30.1 Alzheimer's disease with late onset (principal); R55 Syncope and collapse; I48.91 Unspecified atrial fibrillation; E11.9 Type 2 diabetes mellitus without complications; E64.9 Sequelae of unspecified nutritional deficiency

== ENCOUNTER → 2020-03-09 | Outpatient (REF) | payer OTHER, MEDICARE, BC ==
[2020-03-09 09:58] LABS: CALCIUM LEVEL 8.5 MG/DL (8.8-10.2); CREATININE FOR GFR 1.33 MG/DL (0.70-1.30); GLOMERULAR FILTRATION RATE 54.7 (>35)
== END ==
LOC: SKLAB6 07:00
PROVIDERS: ATTEND Internal Medicine
DX: Z79.899 Other long term (current) drug therapy (principal)

== ENCOUNTER → 2020-03-11 | Outpatient (REF) | payer MEDICARE, OTHER ==
[2020-03-11 14:10] LABS: BASO % 0.1 % (0.0-1.0); EOS # 0.1 10^3/uL (0.0-0.5); EOS % 0.8 % (0.0-3.0); HEMATOCRIT 31.7 % (42.0-52.0); LYMPH # 1.2 10^3/uL (1.5-5.0); LYMPH % 17.1 % (24.0-44.0); MEAN CORPUSCULAR HEMOGLOBIN 29.7 pg (27.0-33.0); MEAN CORPUSCULAR HGB CONC 31.5 g/dl (32.0-36.5); MEAN CORPUSCULAR VOLUME 94.1 fl (80.0-96.0); MONO # 0.3 10^3/uL (0.0-0.8); MONO % 4.2 % (0.0-5.0); NEUTROPHILS # 5.5 10^3/uL (1.5-8.5); NEUTROPHILS % 77.5 % (36.0-66.0); PLATELET COUNT, AUTOMATED 208 10^3/uL (150-450); RED BLOOD COUNT 3.37 10^6/uL (4.30-6.10); WHITE BLOOD COUNT 7.2 10^3/uL (4.0-10.0)
[2020-03-11 14:17] LABS: ALBUMIN 3.8 GM/DL (3.2-5.2); C REACTIVE PROTEIN QUANTITATIV 0.83 MG/DL (0.00-0.30); CALCIUM LEVEL 8.9 MG/DL (8.8-10.2); CREATININE FOR GFR 1.35 MG/DL (0.70-1.30); GLOMERULAR FILTRATION RATE 53.7 (>35); POTASSIUM SERUM 3.9 MEQ/L (3.5-5.1); TOTAL PROTEIN 7.5 GM/DL (6.4-8.2)
[2020-03-11 14:38] LABS: ERYTHROCYTE SEDIMENTATION RATE 60 mm/hr (0-20)
== END ==
LOC: M SFHCRHEU 10:34
PROVIDERS: ATTEND Internal Medicine
DX: M05.79 Rheumatoid arthritis with rheumatoid factor of multiple sites without organ or systems involvement (principal)
CPT/HCPCS: 36415; 80053; 85025; 85652; 86140; G0463

== ENCOUNTER → 2020-03-12 | Outpatient (REF) | payer MEDICARE, OTHER ==
[2020-03-12 14:02] LABS: CALCIUM LEVEL 9.3 MG/DL (8.8-10.2); CREATININE FOR GFR 1.23 MG/DL (0.70-1.30); GLOMERULAR FILTRATION RATE 59.8 (>35); POTASSIUM SERUM 3.8 MEQ/L (3.5-5.1)
== END ==
LOC: SKLAB6 08:30
PROVIDERS: ATTEND Internal Medicine
DX: D64.9 Anemia, unspecified (principal); Z79.899 Other long term (current) drug therapy

== ENCOUNTER → 2020-03-16 | Outpatient (REF) | payer OTHER, MEDICARE, BC ==
[2020-03-16 07:56] LABS: BLOOD UREA NITROGEN 35 MG/DL (7-18); CALCIUM LEVEL 9.2 MG/DL (8.8-10.2); CARBON DIOXIDE LEVEL 32 MEQ/L (21-32); CHLORIDE LEVEL 102 MEQ/L (98-107); CREATININE FOR GFR 1.27 MG/DL (0.70-1.30); FERRITIN 278 NG/ML (26-388); GLOMERULAR FILTRATION RATE 57.7 (>35); GLUCOSE, FASTING 115 MG/DL (70-100); IRON (FE) 48 UG/DL (65-175); PERCENT SATURATION 17.2 % (19.7-50.0); POTASSIUM SERUM 3.5 MEQ/L (3.5-5.1); SODIUM LEVEL 139 MEQ/L (136-145); TOTAL IRON BINDING CAPACITY 279 UG/DL (250-450)
[2020-03-16 10:23] LABS: VITAMIN B12 LEVEL 300 PG/ML (247-911)
[2020-03-16 10:24] LABS: FOLATE > 24.0 NG/ML (>5.4)
== END ==
LOC: SKLAB6 07:00
PROVIDERS: ATTEND Internal Medicine
DX: E78.5 Hyperlipidemia, unspecified (principal); E11.9 Type 2 diabetes mellitus without complications; D64.9 Anemia, unspecified; Z79.899 Other long term (current) drug therapy

== ENCOUNTER 2020-03-17 08:10 | Outpatient (CLI) | payer MEDICARE, BC, OTHER ==
[~2020-03-17] VITALS: Ht 180.3 cm; Wt 96.9 kg
[~2020-03-17 08:10] MED LIST changes: -LISI-1046 PO; +LISI2.5T2 PO; +PHEN26CR TOP; -PREPCRE TOP
[2020-03-17 08:15] VITALS: BP 98/54
[2020-03-17] MEDS ORDERED: EPINEPHrine INJ 1 MG/ML 1ML AMP IM PRN (08:15)
[2020-03-17] MEDS ORDERED: GOLIMUMAB IV ONE (08:15)
[2020-03-17] MEDS ORDERED: diphenhydrAMINE 50MG/ML VIAL (J1200) IV PRN (08:15)
[2020-03-17] MEDS ORDERED: methylPREDNISolone INJ 125 MG/2 ML VIAL (J2930) IV PRN (08:15)
[2020-03-17] MEDS ORDERED: NS IV ONE (08:15)
[2020-03-17] MEDS ORDERED: ALBUTEROL SULFATE 2.5 MG/0.5 ML INH NEB SOLN INH PRN (08:15)
[2020-03-17 09:11] VITALS: BP 105/66
== END 2020-03-17 09:11 | disposition home or self-care (01) ==
LOC: M INFU 08:10
PROVIDERS: ATTEND Internal Medicine
DX: M05.79 Rheumatoid arthritis with rheumatoid factor of multiple sites without organ or systems involvement (principal); I10 Essential (primary) hypertension; E11.9 Type 2 diabetes mellitus without complications; Z79.82 Long term (current) use of aspirin; Z79.899 Other long term (current) drug therapy; Z11.59 Encounter for screening for other viral diseases
CPT/HCPCS: 87340; 96365; J1602

== ENCOUNTER → 2020-04-09 | Outpatient (REF) | payer OTHER, MEDICARE, BC ==
[2020-04-09 10:24] LABS: HEMATOCRIT 33.5 % (42.0-52.0); HEMOGLOBIN 10.7 g/dl (13.5-17.5); MEAN CORPUSCULAR HEMOGLOBIN 29.2 pg (27.0-33.0); MEAN CORPUSCULAR HGB CONC 31.9 g/dl (32.0-36.5); MEAN CORPUSCULAR VOLUME 91.5 fl (80.0-96.0); PLATELET COUNT, AUTOMATED 204 10^3/uL (150-450); RED BLOOD COUNT 3.66 10^6/uL (4.30-6.10); WHITE BLOOD COUNT 8.7 10^3/uL (4.0-10.0)
== END ==
LOC: SKLAB6 09:30
PROVIDERS: ATTEND Internal Medicine
DX: M05.79 Rheumatoid arthritis with rheumatoid factor of multiple sites without organ or systems involvement (principal); F03.90 Unspecified dementia, unspecified severity, without behavioral disturbance, psychotic disturbance, mood disturbance, and anxiety; Z79.899 Other long term (current) drug therapy

== ENCOUNTER → 2020-05-07 | Outpatient (REF) | payer MEDICARE, BC, OTHER ==
[2020-05-07 08:03] LABS: HEMATOCRIT 33.3 % (42.0-52.0); HEMOGLOBIN 10.8 g/dl (13.5-17.5); MEAN CORPUSCULAR HEMOGLOBIN 29.5 pg (27.0-33.0); MEAN CORPUSCULAR HGB CONC 32.4 g/dl (32.0-36.5); PLATELET COUNT, AUTOMATED 157 10^3/uL (150-450); RED BLOOD COUNT 3.66 10^6/uL (4.30-6.10); WHITE BLOOD COUNT 7.6 10^3/uL (4.0-10.0)
[2020-05-07 08:32] LABS: ALBUMIN 3.7 GM/DL (3.2-5.2); ALT/SGPT 40 U/L (12-78); BILIRUBIN,TOTAL 0.5 MG/DL (0.2-1.0); BLOOD UREA NITROGEN 24 MG/DL (7-18); CALCIUM LEVEL 8.6 MG/DL (8.8-10.2); CARBON DIOXIDE LEVEL 32 MEQ/L (21-32); CHLORIDE LEVEL 103 MEQ/L (98-107); GLOMERULAR FILTRATION RATE > 60.0 (>35); GLUCOSE, FASTING 98 MG/DL (70-100); POTASSIUM SERUM 3.7 MEQ/L (3.5-5.1); SODIUM LEVEL 140 MEQ/L (136-145); TOTAL PROTEIN 7.6 GM/DL (6.4-8.2)
== END ==
LOC: SKLAB6 07:00
PROVIDERS: ATTEND Internal Medicine
DX: Z79.899 Other long term (current) drug therapy (principal)

== ENCOUNTER 2020-05-12 07:53 | Outpatient (CLI) | payer MEDICARE, BC, OTHER ==
[~2020-05-12] VITALS: Ht 179.1 cm; Wt 96.9 kg
[~2020-05-12 07:53] MED LIST changes: -ASPI81TA85 PO; +ASPI81TA86 PO; -LISI-542 PO; +LISI-898 PO; +LISI10TA22 PO; -LISI10TA4 PO; -QUET1TAB7 PO; +QUET25TA3 PO; +QUET50TA3 PO; -QUET5TAB PO
[2020-05-12 08:00] VITALS: BP 107/62
[2020-05-12] MEDS ORDERED: NS IV ONE (08:15)
[2020-05-12] MEDS ORDERED: EPINEPHrine INJ 1 MG/ML 1ML AMP IM PRN (08:15)
[2020-05-12] MEDS ORDERED: methylPREDNISolone 125MG 2ML VIAL IV PRN (08:15)
[2020-05-12] MEDS ORDERED: diphenhydrAMINE 50MG/ML VIAL (J1200) IV PRN (08:15)
[2020-05-12] MEDS ORDERED: ALBUTEROL SULFATE 2.5 MG/0.5 ML INH NEB SOLN INH PRN (08:15)
[2020-05-12] MEDS ORDERED: GOLIMUMAB IV ONE (08:15)
[2020-05-12 09:10] VITALS: BP 102/57
== END 2020-05-12 09:10 | disposition home or self-care (01) ==
LOC: M INFU 07:53
PROVIDERS: ATTEND Internal Medicine
DX: M05.79 Rheumatoid arthritis with rheumatoid factor of multiple sites without organ or systems involvement (principal)
CPT/HCPCS: 36592; 96365; J1602

== ENCOUNTER → 2020-05-12 | Outpatient (REF) | payer OTHER, MEDICARE, BC ==
[2020-05-12 11:24] LABS: CREATININE FOR GFR 1.29 MG/DL (0.70-1.30); GLOMERULAR FILTRATION RATE 56.6 (>35); POTASSIUM SERUM 3.6 MEQ/L (3.5-5.1)
== END ==
LOC: SKLAB6 07:00
PROVIDERS: ATTEND Internal Medicine
DX: Z79.899 Other long term (current) drug therapy (principal)

== ENCOUNTER 2020-07-07 08:00 | Outpatient (CLI) | payer MEDICARE, BC, OTHER ==
[~2020-07-07 08:00] MED LIST changes: +GOLIMUMAB ONE; +LISI-542 PO; -LISI-898 PO; -LISI10TA22 PO; +LISI10TA4 PO; +QUET1TAB7 PO; -QUET25TA3 PO; -QUET50TA3 PO; +QUET5TAB PO
== END 2020-07-07 09:30 | disposition home or self-care (01) ==
LOC: M INFU 08:00
PROVIDERS: ATTEND Internal Medicine
DX: M05.79 Rheumatoid arthritis with rheumatoid factor of multiple sites without organ or systems involvement (principal)
CPT/HCPCS: 87340; 96365; J1602

== ENCOUNTER → 2020-07-09 | Outpatient (REF) | payer MEDICARE, BC, OTHER ==
[~2020-07-09] MED LIST changes: -GOLIMUMAB ONE
[2020-09-02 08:09] LABS: BILIRUBIN,TOTAL 0.6 MG/DL (0.2-1.0); CALCIUM LEVEL 8.9 MG/DL (8.8-10.2); CREATININE FOR GFR 1.23 MG/DL (0.70-1.30); GLOMERULAR FILTRATION RATE 59.7 (>35); POTASSIUM SERUM 3.5 MEQ/L (3.5-5.1); TOTAL PROTEIN 7.8 GM/DL (6.4-8.2)
== END ==
LOC: SKLAB6 09:44
PROVIDERS: ATTEND Internal Medicine
DX: Z79.899 Other long term (current) drug therapy (principal)

== ENCOUNTER → 2020-07-23 | Outpatient (CLI) | payer MEDICARE, BC, OTHER ==
--- NOTE | 2020-08-02 17:50 | REP ---
LEFT HAND SERIES: 4-VIEWS HISTORY: Pain and swelling second finger. COMPARISON: Left hand radiographs are from 08/28/2019. FINDINGS: There is severe osteoarthritis at the first carpometacarpal articulation. Advanced osteoarthritis is seen at the second or index metacarpophalangeal joint, as well as the IP joint of the thumb. Moderate osteoarthritic changes are noted at the PIP and DIP joints of the index and long fingers. There is no evidence of fracture. Vascular calcification is noted. IMPRESSION: Advanced osteoarthritis. No acute bony abnormality is appreciated. MTDD
== END ==
LOC: M RAD 12:30
PROVIDERS: ATTEND Nurse Practitioner Family
DX: M79.642 Pain in left hand (principal); M19.042 Primary osteoarthritis, left hand

== ENCOUNTER → 2020-07-28 | Outpatient (REF) | payer MEDICARE, BC, OTHER ==
[2020-07-28 12:44] LABS: HEP C VIRUS AB INDEX SOURCE PT 0.3 INDEX (0.0-0.8); HEPATITIS B SURFACE ANTIGEN NEGATIVE (NEGATIVE); HIV SCREEN CENTAUR SOURCE NEGATIVE (NEGATIVE)
== END ==
LOC: SKLAB6 07:00
PROVIDERS: ATTEND Internal Medicine
DX: Z20.9 Contact with and (suspected) exposure to unspecified communicable disease (principal)

== ENCOUNTER → 2020-08-06 | Outpatient (REF) | payer MEDICARE, BC, OTHER ==
[2020-08-06 08:31] LABS: HEMATOCRIT 32.7 % (42.0-52.0); MEAN CORPUSCULAR HEMOGLOBIN 31.2 pg (27.0-33.0); MEAN CORPUSCULAR HGB CONC 33.6 g/dl (32.0-36.5); MEAN CORPUSCULAR VOLUME 92.6 fl (80.0-96.0); PLATELET COUNT, AUTOMATED 210 10^3/uL (150-450); RED BLOOD COUNT 3.53 10^6/uL (4.30-6.10); WHITE BLOOD COUNT 7.9 10^3/uL (4.0-10.0)
== END ==
LOC: SKLAB6 07:00
PROVIDERS: ATTEND Internal Medicine
DX: I48.91 Unspecified atrial fibrillation (principal)

== ENCOUNTER → 2020-09-03 | Outpatient (REF) | payer MEDICARE, BC, OTHER ==
[2020-09-03 09:21] LABS: ALBUMIN 3.7 GM/DL (3.2-5.2); ALT/SGPT 27 U/L (12-78); BILIRUBIN,TOTAL 0.5 MG/DL (0.2-1.0); BLOOD UREA NITROGEN 23 MG/DL (7-18); CALCIUM LEVEL 8.6 MG/DL (8.8-10.2); CARBON DIOXIDE LEVEL 31 MEQ/L (21-32); CHLORIDE LEVEL 104 MEQ/L (98-107); CREATININE FOR GFR 1.16 MG/DL (0.70-1.30); GLOMERULAR FILTRATION RATE > 60.0 (>35); GLUCOSE, FASTING 97 MG/DL (70-100); POTASSIUM SERUM 3.7 MEQ/L (3.5-5.1); SODIUM LEVEL 140 MEQ/L (136-145); TOTAL PROTEIN 7.4 GM/DL (6.4-8.2)
[2020-09-03 10:33] LABS: HEMOGLOBIN A1c 5.6 %
== END ==
LOC: SKLAB6 07:00
PROVIDERS: ATTEND Internal Medicine
DX: Z79.899 Other long term (current) drug therapy (principal); E11.9 Type 2 diabetes mellitus without complications

== ENCOUNTER 2020-09-04 10:13 | Outpatient (CLI) | payer MEDICARE, BC, OTHER ==
[~2020-09-04] VITALS: Ht 177.8 cm; Wt 85.5 kg
[2020-09-04] MEDS: NS 1,000 ML IV SCH (10:00)
[~2020-09-04 10:13] MED LIST changes: +ALBUTEROL SULFATE 2.5 MG/0.5 ML INH NEB SOLN INH PRN; +EPINEPHrine INJ 1 MG/ML 1ML AMP IM PRN; +diphenhydrAMINE 50MG/ML VIAL (J1200) IV PRN; +methylPREDNISolone 125MG 2ML VIAL IV PRN
[2020-09-04 10:20] VITALS: BP 99/54
[2020-09-04 10:28] VITALS: BP 99/54
[2020-09-04] MEDS: NS IV ONE (10:28)
[2020-09-04] MEDS: GOLIMUMAB IV ONE (10:28)
[2020-09-04 11:15] VITALS: BP 100/67
[2020-09-04 11:20] VITALS: BP 100/67
== END 2020-09-04 11:20 | disposition home or self-care (01) ==
LOC: M INFU 10:13
PROVIDERS: ATTEND Internal Medicine
DX: M05.79 Rheumatoid arthritis with rheumatoid factor of multiple sites without organ or systems involvement (principal)
CPT/HCPCS: 96365; J1602

== ENCOUNTER 2020-10-13 13:29 | Outpatient (RCR) ==
[~2020-10-13 13:29] MED LIST changes: -ALBUTEROL SULFATE 2.5 MG/0.5 ML INH NEB SOLN INH PRN; -EPINEPHrine INJ 1 MG/ML 1ML AMP IM PRN; -diphenhydrAMINE 50MG/ML VIAL (J1200) IV PRN; -methylPREDNISolone 125MG 2ML VIAL IV PRN
[2020-10-28 16:23] LABS: INFLUENZA A AMPLIFICATION NEGATIVE (NEGATIVE); INFLUENZA B AMPLIFICATION NEGATIVE (NEGATIVE)
== END 2020-10-26 ==
LOC: SKLAB6 13:29
PROVIDERS: ATTEND Internal Medicine
DX: Z20.828 Contact with and (suspected) exposure to other viral communicable diseases (principal)

== ENCOUNTER → 2020-10-21 | Outpatient (REF) | LOC: SKLAB6 08:00 | PROVIDERS: ATTEND Internal Medicine | DX: Z20.828 Contact with and (suspected) exposure to other viral communicable diseases (principal) ==

== ENCOUNTER → 2020-10-28 | Outpatient (REF) ==
[2020-10-09 12:30] LABS: INFLUENZA A AMPLIFICATION NEGATIVE (NEGATIVE); INFLUENZA B AMPLIFICATION NEGATIVE (NEGATIVE)
== END ==
LOC: SKLAB6 08:00
PROVIDERS: ATTEND Internal Medicine
DX: Z20.828 Contact with and (suspected) exposure to other viral communicable diseases (principal)

== ENCOUNTER 2020-10-30 09:28 | Outpatient (CLI) | payer MEDICARE, BC, OTHER ==
[~2020-10-30] VITALS: Ht 177.8 cm; Wt 85.5 kg
[2020-10-30 09:30] VITALS: BP 100/57
[2020-10-30] MEDS ORDERED: NS IV ONE (09:30)
[2020-10-30] MEDS ORDERED: EPINEPHrine INJ 1 MG/ML 1ML AMP IM PRN (09:30)
[2020-10-30] MEDS ORDERED: methylPREDNISolone 125MG 2ML VIAL IV PRN (09:30)
[2020-10-30] MEDS ORDERED: GOLIMUMAB IV ONE (09:30)
[2020-10-30] MEDS ORDERED: diphenhydrAMINE 50MG/ML VIAL (J1200) IV PRN (09:30)
[2020-10-30] MEDS ORDERED: ALBUTEROL SULFATE 2.5 MG/0.5 ML INH NEB SOLN INH PRN (09:30)
[2020-10-30 11:06] VITALS: BP 104/56
== END 2020-10-30 11:15 | disposition home or self-care (01) ==
LOC: M INFU 09:28
PROVIDERS: ATTEND Internal Medicine
DX: M05.79 Rheumatoid arthritis with rheumatoid factor of multiple sites without organ or systems involvement (principal); Z88.8 Allergy status to other drugs, medicaments and biological substances
CPT/HCPCS: 96365; J1602

== ENCOUNTER → 2020-11-02 | Outpatient (CLI) | payer MEDICARE, BC, OTHER ==
--- NOTE | 2020-11-02 13:19 | REP ---
INDICATION: S/P FALL, ON ELIQUIS. COMPARISON: Comparison head CT study June 05, 2019.. TECHNIQUE: Helical scanning is acquired. 5 mm axial images were reformatted. Coronal MPR images were generated. FINDINGS: Bone window settings demonstrate an intact bony calvarium. There is no evidence of skull fracture or incidental bony calvarial lesion. The visualized paranasal sinuses appear clear. No intraorbital abnormality is seen. On soft tissue window setting images; the lateral, third, and fourth ventricles are normal in size and position. Craig-white differentiation pattern is normal above and below the tentorium. There are is no evidence of intracranial hemorrhage. No mass, edema, infarction, or midline shift is seen. No extra-axial fluid collection is appreciated. There is [id number] generalized volume loss and small vessel changes are noted. 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 Vascular calcification is noted. Findings are unchanged5 from the June 05, 2019 study. IMPRESSION: Vascular calcification, small vessel changes, moderate generalized volume loss. No acute intracranial abnormality.. <Electronically signed by Solis Ro > 11/02/20 [id number]
== END ==
LOC: M RAD 12:46
PROVIDERS: ATTEND Nurse Practitioner Family
DX: Z79.01 Long term (current) use of anticoagulants (principal); Z91.81 History of falling

== ENCOUNTER → 2020-11-04 | Outpatient (REF) | LOC: SKLAB6 10:00 | PROVIDERS: ATTEND Internal Medicine | DX: Z20.828 Contact with and (suspected) exposure to other viral communicable diseases (principal) ==

== ENCOUNTER → 2020-11-05 | Outpatient (REF) | payer MEDICARE, BC, OTHER ==
[2020-11-05 09:07] LABS: HEMATOCRIT 29.9 % (42.0-52.0); HEMOGLOBIN 9.6 g/dl (13.5-17.5); MEAN CORPUSCULAR HGB CONC 32.1 g/dl (32.0-36.5); MEAN CORPUSCULAR VOLUME 93.4 fl (80.0-96.0); PLATELET COUNT, AUTOMATED 125 10^3/uL (150-450); WHITE BLOOD COUNT 6.5 10^3/uL (4.0-10.0)
[2020-11-05 09:36] LABS: ALBUMIN 3.1 GM/DL (3.2-5.2); BILIRUBIN,TOTAL 0.6 MG/DL (0.2-1.0); CALCIUM LEVEL 8.5 MG/DL (8.8-10.2); CREATININE FOR GFR 1.24 MG/DL (0.70-1.30); GLOMERULAR FILTRATION RATE 59.1 (>35); POTASSIUM SERUM 3.6 MEQ/L (3.5-5.1); TOTAL PROTEIN 6.3 GM/DL (6.4-8.2)
== END ==
LOC: SKLAB6 07:00
PROVIDERS: ATTEND Internal Medicine
DX: Z51.81 Encounter for therapeutic drug level monitoring (principal); Z79.899 Other long term (current) drug therapy

== ENCOUNTER → 2020-11-17 | Outpatient (REF) | payer MEDICARE, BC, OTHER ==
[2020-11-17 12:00] LABS: CALCIUM LEVEL 9.1 MG/DL (8.8-10.2); CREATININE FOR GFR 1.39 MG/DL (0.70-1.30); GLOMERULAR FILTRATION RATE 51.8 (>35); POTASSIUM SERUM 3.5 MEQ/L (3.5-5.1)
== END ==
LOC: SKLAB6 07:00
PROVIDERS: ATTEND Internal Medicine
DX: I95.9 Hypotension, unspecified (principal)

== ENCOUNTER → 2020-11-18 | Outpatient (REF) | payer MEDICARE, BC, OTHER | LOC: SKLAB6 09:00 | PROVIDERS: ATTEND Internal Medicine | DX: Z20.828 Contact with and (suspected) exposure to other viral communicable diseases (principal) ==

== ENCOUNTER → 2020-11-25 | Outpatient (REF) | payer MEDICARE, BC, OTHER | LOC: SKLAB6 10:00 | PROVIDERS: ATTEND Internal Medicine | DX: Z20.828 Contact with and (suspected) exposure to other viral communicable diseases (principal) ==

== ENCOUNTER → 2020-12-02 | Outpatient (REF) | LOC: SKLAB6 10:00 | PROVIDERS: ATTEND Internal Medicine | DX: Z11.52 Encounter for screening for COVID-19 (principal) ==

== ENCOUNTER → 2020-12-09 | Outpatient (REF) | payer MEDICARE, BC, OTHER | LOC: SKLAB6 10:00 | PROVIDERS: ATTEND Internal Medicine | DX: Z20.822 Contact with and (suspected) exposure to COVID-19 (principal) ==

== ENCOUNTER → 2020-12-16 | Outpatient (REF) | LOC: SKLAB6 07:00 → EDSTATUS 10:59 → SKLAB6 12-27 10:59 | PROVIDERS: ATTEND Internal Medicine | DX: Z20.822 Contact with and (suspected) exposure to COVID-19 (principal) ==

== ENCOUNTER → 2020-12-23 | Outpatient (REF) | payer MEDICARE, BC, OTHER ==
[2020-12-23 11:43] LABS: INFLUENZA A AMPLIFICATION NEGATIVE (NEGATIVE); INFLUENZA B AMPLIFICATION NEGATIVE (NEGATIVE)
== END ==
LOC: SKLAB6 08:00
PROVIDERS: ATTEND Internal Medicine
DX: Z20.822 Contact with and (suspected) exposure to COVID-19 (principal)
CPT/HCPCS: 87502; U0003

== ENCOUNTER 2020-12-25 08:37 | Outpatient (CLI) | payer MEDICARE, BC, OTHER ==
[~2020-12-25] VITALS: Ht 177.8 cm; Wt 85.5 kg
[~2020-12-25 08:37] MED LIST changes: +ALBUTEROL SULFATE 2.5 MG/0.5 ML INH NEB SOLN INH PRN; +EPINEPHrine INJ 1 MG/ML 1ML AMP IM PRN; +diphenhydrAMINE 50MG/ML VIAL (J1200) IV PRN; +methylPREDNISolone 125MG 2ML VIAL IV PRN
[2020-12-25 08:45] VITALS: BP 100/50
[2020-12-25 08:55] VITALS: BP 100/50
[2020-12-25] MEDS ORDERED: NS IV ONE (09:30)
[2020-12-25] MEDS ORDERED: GOLIMUMAB IV ONE (09:30)
[2020-12-25 10:15] VITALS: BP 121/61
== END 2020-12-25 10:15 | disposition home or self-care (01) ==
LOC: M INFU 08:37
PROVIDERS: ATTEND Internal Medicine
DX: M05.79 Rheumatoid arthritis with rheumatoid factor of multiple sites without organ or systems involvement (principal); Z88.8 Allergy status to other drugs, medicaments and biological substances

== ENCOUNTER → 2020-12-30 | Outpatient (REF) ==
[~2020-12-30] MED LIST changes: -ALBUTEROL SULFATE 2.5 MG/0.5 ML INH NEB SOLN INH PRN; -EPINEPHrine INJ 1 MG/ML 1ML AMP IM PRN; -diphenhydrAMINE 50MG/ML VIAL (J1200) IV PRN; -methylPREDNISolone 125MG 2ML VIAL IV PRN
== END ==
LOC: SKLAB6 10:00
PROVIDERS: ATTEND Internal Medicine
DX: Z20.822 Contact with and (suspected) exposure to COVID-19 (principal)

== ENCOUNTER → 2021-01-06 | Outpatient (REF) ==
[~2021-01-06] MED LIST changes: -LISI-542 PO; +LISI-898 PO; +LISI10TA22 PO; -LISI10TA4 PO; -QUET1TAB7 PO; +QUET25TA3 PO; +QUET50TA3 PO; -QUET5TAB PO
== END ==
LOC: SKLAB6 09:00
PROVIDERS: ATTEND Internal Medicine
DX: Z20.822 Contact with and (suspected) exposure to COVID-19 (principal)

== ENCOUNTER → 2021-01-07 | Outpatient (REF) | payer MEDICARE, BC, OTHER ==
[2021-01-07 10:13] LABS: ALBUMIN 3.5 GM/DL (3.2-5.2); ALT/SGPT 27 U/L (12-78); BILIRUBIN,TOTAL 0.5 MG/DL (0.2-1.0); BLOOD UREA NITROGEN 25 MG/DL (7-18); CALCIUM LEVEL 8.6 MG/DL (8.8-10.2); CARBON DIOXIDE LEVEL 29 MEQ/L (21-32); CHLORIDE LEVEL 108 MEQ/L (98-107); GLOMERULAR FILTRATION RATE > 60.0 (>35); GLUCOSE, FASTING 94 MG/DL (70-100); POTASSIUM SERUM 4.1 MEQ/L (3.5-5.1); SODIUM LEVEL 143 MEQ/L (136-145); TOTAL PROTEIN 6.8 GM/DL (6.4-8.2)
== END ==
LOC: SKLAB6 07:00
PROVIDERS: ATTEND Internal Medicine
DX: Z79.899 Other long term (current) drug therapy (principal)

== ENCOUNTER → 2021-01-13 | Outpatient (REF) | LOC: SKLAB6 10:00 | PROVIDERS: ATTEND Internal Medicine | DX: Z20.822 Contact with and (suspected) exposure to COVID-19 (principal) ==

== ENCOUNTER → 2021-01-20 | Outpatient (REF) | LOC: SKLAB6 10:00 | PROVIDERS: ATTEND Internal Medicine | DX: Z20.822 Contact with and (suspected) exposure to COVID-19 (principal) ==

== ENCOUNTER → 2021-02-03 | Outpatient (REF) | LOC: SKLAB6 12:13 | PROVIDERS: ATTEND Internal Medicine | DX: Z20.822 Contact with and (suspected) exposure to COVID-19 (principal) ==

== ENCOUNTER → 2021-02-04 | Outpatient (REF) | payer MEDICARE, BC, OTHER ==
[2021-02-04 12:55] LABS: HEMATOCRIT 31.2 % (42.0-52.0); HEMOGLOBIN 9.9 g/dl (13.5-17.5); MEAN CORPUSCULAR HEMOGLOBIN 29.7 pg (27.0-33.0); MEAN CORPUSCULAR HGB CONC 31.7 g/dl (32.0-36.5); MEAN CORPUSCULAR VOLUME 93.7 fl (80.0-96.0); PLATELET COUNT, AUTOMATED 137 10^3/uL (150-450); RED BLOOD COUNT 3.33 10^6/uL (4.30-6.10); WHITE BLOOD COUNT 6.5 10^3/uL (4.0-10.0)
== END ==
LOC: SKLAB6 08:00
PROVIDERS: ATTEND Internal Medicine
DX: I48.91 Unspecified atrial fibrillation (principal)

== ENCOUNTER → 2021-02-10 | Outpatient (REF) | LOC: SKLAB6 09:00 | PROVIDERS: ATTEND Internal Medicine | DX: Z20.822 Contact with and (suspected) exposure to COVID-19 (principal) ==

== ENCOUNTER 2021-02-19 08:35 | Outpatient (CLI) | payer MEDICARE, BC, OTHER ==
[~2021-02-19] VITALS: Ht 177.8 cm; Wt 85.5 kg
[~2021-02-19 08:35] MED LIST changes: +ALBUTEROL SULFATE 2.5 MG/0.5 ML INH NEB SOLN INH PRN; +EPINEPHrine INJ 1 MG/ML 1ML AMP IM PRN; +diphenhydrAMINE 50MG/ML VIAL (J1200) IV PRN; +methylPREDNISolone 125MG 2ML VIAL IV PRN
[2021-02-19] MEDS ORDERED: GOLIMUMAB IV ONE (09:00)
[2021-02-19] MEDS ORDERED: NS IV ONE (09:00)
[2021-02-19 09:05] VITALS: BP 118/59
[2021-02-19 09:28] VITALS: BP 118/59
[2021-02-19 10:01] VITALS: BP 115/57
== END 2021-02-19 10:00 | disposition home or self-care (01) ==
LOC: M INFU 08:35
PROVIDERS: ATTEND Internal Medicine
DX: M05.79 Rheumatoid arthritis with rheumatoid factor of multiple sites without organ or systems involvement (principal); Z88.8 Allergy status to other drugs, medicaments and biological substances
CPT/HCPCS: 96365; J1602

== ENCOUNTER → 2021-02-26 | Outpatient (REF) ==
[~2021-02-26] MED LIST changes: -ALBUTEROL SULFATE 2.5 MG/0.5 ML INH NEB SOLN INH PRN; -EPINEPHrine INJ 1 MG/ML 1ML AMP IM PRN; -diphenhydrAMINE 50MG/ML VIAL (J1200) IV PRN; -methylPREDNISolone 125MG 2ML VIAL IV PRN
== END ==
LOC: SKLAB6 10:00
PROVIDERS: ATTEND Internal Medicine
DX: Z20.822 Contact with and (suspected) exposure to COVID-19 (principal)

== ENCOUNTER → 2021-03-04 | Outpatient (REF) | payer MEDICARE, BC ==
[2021-03-04 11:09] LABS: HEMOGLOBIN A1c 5.8 %
[2021-03-04 11:21] LABS: ALBUMIN 3.6 GM/DL (3.2-5.2); ALT/SGPT 21 U/L (12-78); BILIRUBIN,TOTAL 0.7 MG/DL (0.2-1.0); BLOOD UREA NITROGEN 26 MG/DL (7-18); CALCIUM LEVEL 8.6 MG/DL (8.8-10.2); CARBON DIOXIDE LEVEL 27 MEQ/L (21-32); CHLORIDE LEVEL 109 MEQ/L (98-107); CREATININE FOR GFR 1.09 MG/DL (0.70-1.30); GLOMERULAR FILTRATION RATE > 60.0 (>35); GLUCOSE, FASTING 84 MG/DL (70-100); POTASSIUM SERUM 4.1 MEQ/L (3.5-5.1); SODIUM LEVEL 141 MEQ/L (136-145)
== END ==
LOC: SKLAB6 07:00
PROVIDERS: ATTEND Internal Medicine
DX: E11.9 Type 2 diabetes mellitus without complications (principal)

== ENCOUNTER 2021-04-08 08:19 | Inpatient (IN) | payer MEDICARE, BC ==
[~2021-04-08] VITALS: Ht 170.2 cm; Wt 91.3 kg
--- NOTE | 2021-04-08 08:44 | REPVR ---
PROCEDURE INFORMATION: Exam: CT Cervical Spine Without Contrast Exam date and time: 04/08/2021 8:23 AM Age: 85 years old Clinical indication: Injury or trauma; Fall; Blunt trauma; Additional info: Fall on eliquis TECHNIQUE: Imaging protocol: Computed tomography images of the cervical spine without contrast. Radiation optimization: All CT scans at this facility use at least one of these dose optimization techniques: automated exposure control; mA and/or kV adjustment per patient size (includes targeted exams where dose is matched to clinical indication); or iterative reconstruction. COMPARISON: No relevant prior studies available. FINDINGS: Bones/joints: There are diffuse enthesopathic changes consistent with benign diffuse idiopathic skeletal hyperostosis (DISH). There is anterior bony bridging from C4 through T2. There is moderate facet arthropathy with bilateral foraminal compromise throughout the mid cervical levels from C3 through C6. There is no evidence of fracture. Discs/Spinal canal/Neural foramina: See "Bones/joints" finding. Thyroid: The thyroid gland is normal. Lungs: The visualized portions of the lung apices are normal. Vasculature: The vasculature demonstrates diffuse moderate atherosclerotic calcification. Soft tissues: Unremarkable. IMPRESSION: 1. There are diffuse enthesopathic changes consistent with benign diffuse idiopathic skeletal hyperostosis (DISH). There is anterior bony bridging from C4 through T2. There is moderate facet arthropathy with bilateral foraminal compromise throughout the mid cervical levels from C3 through C6. 2. There is no evidence of fracture. Electronically signed by: Efe Cavanaugh On 04/08/2021 08:44:07 AM
--- NOTE | 2021-04-08 08:48 | REPVR ---
PROCEDURE INFORMATION: Exam: CT Head Without Contrast Exam date and time: 04/08/2021 8:23 AM Age: 85 years old Clinical indication: Injury or trauma; Fall; Blunt trauma (contusions or hematomas); Additional info: Fall on eliquis TECHNIQUE: Imaging protocol: Computed tomography of the head without contrast. Radiation optimization: All CT scans at this facility use at least one of these dose optimization techniques: automated exposure control; mA and/or kV adjustment per patient size (includes targeted exams where dose is matched to clinical indication); or iterative reconstruction. COMPARISON: CT Head without contrast 11/02/2020 1:13 PM FINDINGS: Brain: There is moderate atrophy and chronic white matter microangiopathic changes. There is a 6 mm oval hyperintensity of a left parietal gyrus on axial image 17 at the atrial level confirmed on coronal image 28 consistent with cortical contusion. Cerebral ventricles: There is compensatory ventricular dilation. Bones/joints: There is no evidence of fracture. Paranasal sinuses: Visualized sinuses are unremarkable. No fluid levels. Mastoid air cells: Visualized mastoid air cells are well aerated. Vasculature: The vasculature demonstrates diffuse moderate atherosclerotic calcification. Soft tissues: There is a 3 cm broad hematoma of the right forehead on axial image 8.There is no evidence of a radio-opaque foreign body. IMPRESSION: 1. There is a 3 cm broad hematoma of the right forehead on axial image 8.There is no evidence of a radio-opaque foreign body. 2. There is no evidence of fracture. 3. There is a 6 mm oval hyperintensity of a left parietal gyrus on axial image 17 at the atrial level confirmed on coronal image 28 consistent with cortical contusion. Electronically signed by: Efe Cavanaugh On 04/08/2021 08:48:15 AM
[2021-04-08] MEDS: BRIMONIDINE 0.15% OPHTH SOLN 5 ML OU SCH ×2 (09:00→20:51)
[2021-04-08] MEDS ORDERED: PROTHROMBIN COMPLEX CONCEN IV ONE (09:25)
[2021-04-08] MEDS ORDERED: DILUENT IV ONE (09:25)
[2021-04-08] MEDS ORDERED: DERMABOND TOPICAL SKIN ADHESIVE TOP ONE (09:25)
[2021-04-08] MEDS ORDERED: ENEMENE PR (09:38)
[2021-04-08] MEDS ORDERED: ACET32TAB PO (09:38)
[2021-04-08] MEDS ORDERED: OMEP10CA78 PO (09:38)
[2021-04-08] MEDS ORDERED: QUET100T2 PO (09:38)
[2021-04-08] MEDS ORDERED: ELIQ5TAB PO (09:38)
[2021-04-08] MEDS ORDERED: VITMTA PO (09:38)
[2021-04-08] MEDS ORDERED: LACT10SO3 PO (09:38)
[2021-04-08] MEDS ORDERED: ACET500T15 PO (09:38)
[2021-04-08 09:58] LABS: BASO % 0.3 % (0.0-1.0); EOS # 0.1 10^3/uL (0.0-0.5); EOS % 1.3 % (0.0-3.0); HEMATOCRIT 33.8 % (42.0-52.0); HEMOGLOBIN 10.8 g/dl (13.5-17.5); LYMPH # 1.9 10^3/uL (1.5-5.0); LYMPH % 31.7 % (24.0-44.0); MEAN CORPUSCULAR HEMOGLOBIN 30.1 pg (27.0-33.0); MEAN CORPUSCULAR VOLUME 94.2 fl (80.0-96.0); MONO # 0.4 10^3/uL (0.0-0.8); MONO % 6.9 % (2.0-8.0); NEUTROPHILS # 3.6 10^3/uL (1.5-8.5); NEUTROPHILS % 59.5 % (36.0-66.0); PLATELET COUNT, AUTOMATED 147 10^3/uL (150-450); RED BLOOD COUNT 3.59 10^6/uL (4.30-6.10); WHITE BLOOD COUNT 6.1 10^3/uL (4.0-10.0)
[2021-04-08 10:10] LABS: INR 1.25
[2021-04-08 10:12] LABS: PARTIAL THROMBOPLASTIN TIME 49.8 SECONDS (24.2-38.5)
[2021-04-08 10:29] LABS: ALBUMIN 3.7 GM/DL (3.2-5.2); ALT/SGPT 27 U/L (12-78); BILIRUBIN,TOTAL 0.6 MG/DL (0.2-1.0); BLOOD UREA NITROGEN 23 MG/DL (7-18); CALCIUM LEVEL 8.8 MG/DL (8.8-10.2); CARBON DIOXIDE LEVEL 29 MEQ/L (21-32); CHLORIDE LEVEL 109 MEQ/L (98-107); CREATININE FOR GFR 1.17 MG/DL (0.70-1.30); GLOMERULAR FILTRATION RATE > 60.0 (>35); GLUCOSE, FASTING 93 MG/DL (70-100); POTASSIUM SERUM 4.4 MEQ/L (3.5-5.1); SODIUM LEVEL 142 MEQ/L (136-145); TOTAL PROTEIN 7.4 GM/DL (6.4-8.2)
[2021-04-08] MEDS ORDERED: ACETAMINOPHEN 650 MG SUPP PR PRN (10:50)
[2021-04-08] MEDS ORDERED: ONDANSETRON 4MG/2ML VIAL IV PRN (10:50)
[2021-04-08] MEDS ORDERED: LORazepam 2 MG/ML VIAL IV PRN (10:50)
[2021-04-08] MEDS ORDERED: BISACODYL 10 MG SUPP PR PRN (10:50)
--- NOTE | 2021-04-08 11:43 | HPEPDOC ---
[facility] Medical History & Physical Date of Admission April 08, 2021 Date of Service: April 08, 2021 Attending Physician: KAYLA JUAN MD History and Physical CHIEF COMPLAINT: Mechanical fall with head trauma HISTORY OF PRESENT ILLNESS: 85 yo man with a history of advanced dementia, chronic Afib on eliquis and a history of frequent falls, recent of [facility] who was brought after being found down early this AM with evidence of head trauma. On arrival he was minimally responsive but otherwise hemodynamically stable, afebrile and breathing comfortably on room air. Initial workup included a CT head that showed 3cm hematoma of the R forehead without evidence of a fracture, as well as a 6mm oval hypointensity of a L parietal gyrus c/w at leas ta cortical contusion while CT of the C-spine did not reveal an acute fracture but had diffuse anthesopathic changes c/w benign DISH, anterior bony bridging from C4-T2, moderate facet arthropathy with bilateral foraminal compromise throughout the mid cervical levels from C3-C6. WBC was 6.1, hgb 10.8, platelets 147, Na 142, K 4.4 , Cr 1.17, LFTs wnl, troponin negative, covid-19 negative and PTT was 49.8. Dr. Andres discussed transfer to [facility] given high risk for evolving bleeding and the , mendoza, who is the HCP declined transfer or invasive approaches to management. 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 I will therefore admit him to medicine with goal for comfort measures and will monitor for changes with no further pursue of imaging or lab investigations at this time. She otherwise reported no recent knowledge of recent fever, chills, SOB, complaints of chest pain or palpitations. PAST MEDICAL HISTORY: #HTN #HLD #GERD #BEV #DM #RA #History of closed TBI #dementia #glaucoma #chronic AFib ALLERGIES: Please see below. REVIEW OF SYSTEMS: Negative except as per HPI. HOME MEDICATIONS: Please see below. PHYSICAL EXAMINATION: VITAL SIGNS: See below General: NAD, lying comfortably in bed, sleeping and responds mostly with " I don't know" without opening his eye much though he opens on request, briefly HEENT: Large at least 7cm at this time R forehead hematoma with dried blood lacerations, EOMI, PERRL Lungs: CTAB Heart: +S1S2, irregularly irregular, no noted murmurs Abd: soft, NT, +BS, obese Ext: Bilateral LE edema, WWP Neuro: Alert on voice, CN3,4,6 intact, no facial droops. No reliably responding to confirm following of commands Skin: Large at least 7cm at this time R forehead hematoma with dried blood lacerations. No noted rashes or bruising at this time. LABORATORY DATA and IMAGING: as noted above MICROBIOLOGY: Please see below. 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 Fall with head trauma w/ large forehead hematoma and L parietal contusion with c/f potential brain bleed: -HCP declined [facility] transfer and invasive treatment -Now [employer] DEVELOPMENT MANAGER -s/p Kcentra in the ED -dc eliquis -seizure precautions -PRN tylenol for pain -morphine PRN for severe pain -ativan for anxiety and may utilize if he has noted seizure activity -fall risk #afib -Rate well controlled -DC eliquis given fall and bleeding #HLD -Discontinue statin now that he is [employer] DEVELOPMENT MANAGER #RA - MTX discontinued #GERD -discontinue omeprazole #DVT prophylaxis -TEDs given ongoing bleeding CODE status: DNR/DNI, [employer] DEVELOP[employer] MANAGER Vital Signs Vital Signs Date Time Temp Pulse Resp B/P (MAP) Pulse Ox O2 Delivery O2 Flow Rate FiO2 04/08/21 09:22 66 17 133/77 (95) 04/08/21 08:38 97.6 98 Laboratory Data Labs 24H Laboratory Tests 2 04/08/21 09:37: Immature Granulocyte % (Auto) 0.3, Neutrophils (%) (Auto) 59.5, Lymphocytes (%) (Auto) 31.7, Monocytes (%) (Auto) 6.9, Eosinophils (%) (Auto) 1.3, Basophils (%) (Auto) 0.3, Neutrophils # (Auto) 3.6, Lymphocytes # (Auto) 1.9, Monocytes # (Auto) 0.4, Eosinophils # (Auto) 0.1, Basophils # (Auto) 0.0, Nucleated Red Blood Cells % (auto) 0.0, Prothrombin Time 16.0H, Prothromb Time International Ratio 1.25, Activated Partial Thromboplast Time 49.8H, Anion Gap 4L, Glomerular Filtration Rate > 60.0, Calcium Level 8.8, Total Bilirubin 0.6, Aspartate Amino Transf (AST/SGOT) 21, Alanine Aminotransferase (ALT/SGPT) 27, Alkaline Phosphatase 124H, Total Protein 7.4, Albumin 3.7, Albumin/Globulin Ratio 1.0 CBC/BMP Laboratory Tests 04/08/21 09:37 Microbiology Microbiology 04/08/21 Respiratory Virus Panel (PCR) ([facility]) - Final, Complete Home Medications Scheduled Acetaminophen (Acetaminophen) 500 Mg Tablet, 500 MG PO BID Apixaban (Eliquis) 5 Mg Tablet, 5 MG PO BID Brimonidine Tartrate (Brimonidine Tartrate) 0.15% 5ML Drops, 1 DROP OU BID Folic Acid (Folic Acid) 1 Mg Tablet, 1 MG PO DAILY Lactulose (Lactulose) 10 Gm/15 Ml Solution, 30 ML PO BID for constipation Latanoprost (Xalatan) 0.005% 2.5ML Drops, 1 DROP OU QHS Methotrexate Sodium (Methotrexate) 2.5 Mg Tablet, 7.5 MG PO QWEEK SUNDAYS Multivitamins (Thera M Plus Tablet) 1 Each Tablet, 1 TAB PO DAILY Omeprazole (Omeprazole) 10 Mg Capsule.dr, 10 MG PO DAILY Quetiapine Fumarate (Quetiapine Fumarate) 100 Mg Tablet, 100 MG PO BID Rosuvastatin Calcium (Rosuvastatin Calcium) 40 Mg Tablet, 40 MG PO QHS Sennosides/Docusate Sodium (Senna Plus Tablet) 1 Each Tablet, 2 TAB PO BID Scheduled PRN Acetaminophen (Acetaminophen) 325 Mg Tablet, 650 MG PO Q4H PRN for PAIN Bisacodyl (Dulcolax) 10 Mg Supp.rect, 10 MG [place] DAILY PRN for CONSTIPATION Magnesium Hydroxide (Milk of Magnesia) 400 Mg/5 Ml Oral.susp, 2,400 MG PO DAILY PRN for CONSTIPATION Sodium Phosphate,[place]-Dibasic (Enema) 133 Ml Enema, 1 KUMAR [place] DAILY PRN for CONSTIPATION Allergies Coded Allergies: donepezil (Verified Adverse Reaction, Severe, sinus pause 2.2 seconds 08/27/19 on telemetry, 08/28/19) timolol (Verified Adverse Reaction, Intermediate, hypotension, 08/28/19) hypotension A-FIB/CHADSVASC A-FIB History Current/History of A-Fib/PAF?: Yes Current PO Anticoag Therapy: No Treatment Reason Anticoagulant not given: Current bleeding KAYLA JUAN MD April 08, 2021 11:43
[2021-04-08 12:19] VITALS: BP 139/81
[2021-04-08] MEDS: MORPHINE 2 MG/ML 1ML VIAL (J2270) IV PRN ×2 (12:45→18:25)
[2021-04-08] MEDS ORDERED: LATANOPROST 0.005% OPHTH SOLN 2.5 ML OU SCH (21:00)
[2021-04-09] MEDS: MORPHINE 2 MG/ML 1ML VIAL (J2270) IV PRN ×2 (00:04→08:13)
[2021-04-09] MEDS: BRIMONIDINE 0.15% OPHTH SOLN 5 ML OU SCH (08:13)
--- NOTE | 2021-04-09 09:13 | REPVR ---
PROCEDURE INFORMATION: Exam: CT Head Without Contrast Exam date and time: 04/09/2021 8:26 AM Age: 85 years old Clinical indication: Injury or trauma; Fall; Blunt trauma (contusions or hematomas); Additional info: Recent fall with head trauma TECHNIQUE: Imaging protocol: Computed tomography of the head without contrast. Radiation optimization: All CT scans at this facility use at least one of these dose optimization techniques: automated exposure control; mA and/or kV adjustment per patient size (includes targeted exams where dose is matched to clinical indication); or iterative reconstruction. COMPARISON: CT Head without contrast 04/08/2021 8:27 AM FINDINGS: Brain: There is low attenuation abnormality in the periventricular white matter consistent with chronic microvascular ischemic changes. There are chronic lacunar infarcts. There is moderate cerebral atrophy. Cerebral ventricles: No ventriculomegaly. Bones/joints: There is chronic deformity of the left zygomatic arch consistent with old fracture. Paranasal sinuses: Visualized sinuses are unremarkable. No fluid levels. Mastoid air cells: Visualized mastoid air cells are well aerated. Vasculature: There is moderate intracranial vascular calcification. Soft tissues: There is a right frontal/periorbital scalp hematoma. There is no underlying fracture. IMPRESSION: No posttraumatic intracranial findings. Please see details above. Electronically signed by: Max Noe On 04/09/2021 09:13:28 AM
--- NOTE | 2021-04-09 10:38 | DS.PDOC ---
Discharge Summary General Date of Admission April 08, 2021 at 10:49 Date of Discharge 04/09/2021 Attending Physician: KAYLA JUAN MD Discharge Summary PROCEDURES PERFORMED DURING STAY: None ADMITTING DIAGNOSES: Fall Dementia DISCHARGE DIAGNOSES: Large R forehead hematoma. Left parietal gyrus cortical contusion. 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 HISTORY OF PRESENT ILLNESS: 85 yo man with a history of advanced dementia, chronic Afib on eliquis and a history of frequent falls, resident of [facility] who was brought in after being found down early 04/08 with evidence of head trauma. On arrival he was minimally responsive but otherwise hemodynamically stable, afebrile and breathing comfortably on room air. HOSPITAL COURSE: Initial workup included a CT head that showed 3cm hematoma of the R forehead without evidence of a fracture, as well as a 6mm oval hypointensity of a L parietal gyrus c/w at leas t a cortical contusion while CT of the C-spine did not reveal an acute fracture but had diffuse anthesopathic changes c/w benign DISH, anterior bony bridging from C4-T2, moderate facet arthropathy with bilateral foraminal compromise throughout the mid cervical levels from C3-C6. WBC was 6.1, hgb 10.8, platelets 147, Na 142, K 4.4 , Cr 1.17, LFTs wnl, troponin negative, covid-19 negative and PTT was 49.8. Dr. Andres discussed transfer to [facility] given high risk for evolving bleeding and the , Rajni, who is the HCP declined transfer or invasive approaches to management. 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 Of note, he was given Kcentra in the ED. He was admitted to medicine with goal for comfort measures and monitoring for changes with no further pursue of imaging or lab investigations. On day 2 of hospitalization, he was up, walking, be it, with a walker with mildly unsteady gait from baseline but grossly nonfocal, and Rajni decided to make him DNR/DNI and ok for non-invasive treatments and requested his return to [facility]. He had a follow up CT head at that time that showed no evidence of further bleeding. He worked with PT and they recommended a walker. He is now being discharged back to [facility]. DISCHARGE MEDICATIONS: Please see below. ALLERGIES: Please see below. PHYSICAL EXAMINATION ON DISCHARGE: VITAL SIGNS: Please see below. General: NAD, pleasantly confused, chatty HEENT: Large R forehead hematoma with dried blood laceration, EOMI, PERRL, purple bruise on R forehead and R upper face Lungs: CTAB Heart: +S1S2, irregularly irregular, no noted murmurs Abd: soft, NT, +BS, obese Ext: Bilateral LE edema, WWP Neuro: Alert, oriented to self and only, follwing commands, CN3-12 intact, no focal deficits noted. LABORATORY DATA: Please see below. IMAGING: CT C-spine: Bones/joints: There are diffuse enthesopathic changes consistent with benign diffuse idiopathic skeletal hyperostosis (DISH). There is anterior bony bridging from C4 through T2. There is moderate facet arthropathy with bilateral foraminal compromise throughout the mid cervical levels from C3 through C6. There is no evidence of fracture. Discs/Spinal canal/Neural foramina: See "Bones/joints" finding. Thyroid: The thyroid gland is normal. Lungs: The visualized portions of the lung apices are normal. Vasculature: The vasculature demonstrates diffuse moderate atherosclerotic calcification. Soft tissues: Unremarkable. IMPRESSION: 1. There are diffuse enthesopathic changes consistent with benign diffuse idiopathic skeletal hyperostosis (DISH). There is anterior bony bridging from C4 through T2. There is moderate facet arthropathy with bilateral foraminal compromise throughout the mid cervical levels from C3 through C6. 2. There is no evidence of fracture. 04/[address] head: Brain: There is moderate atrophy and chronic white matter microangiopathic changes. There is a 6 mm oval hyperintensity of a left parietal gyrus on axial image 17 at the atrial level confirmed on coronal image 28 consistent with cortical contusion. Cerebral ventricles: There is compensatory ventricular dilation. Bones/joints: There is no evidence of fracture. Paranasal sinuses: Visualized sinuses are unremarkable. No fluid levels. Mastoid air cells: Visualized mastoid air cells are well aerated. Vasculature: The vasculature demonstrates diffuse moderate atherosclerotic calcification. Soft tissues: There is a 3 cm broad hematoma of the right forehead on axial image 8.There is no evidence of a radio-opaque foreign body. IMPRESSION: 1. There is a 3 cm broad hematoma of the right forehead on axial image 8.There is no evidence of a radio-opaque foreign body. 2. There is no evidence of fracture. 3. There is a 6 mm oval hyperintensity of a left parietal gyrus on axial image 17 at the atrial level confirmed on coronal image 28 consistent with cortical contusion. 04/09 CT head: Brain: There is low attenuation abnormality in the periventricular white matter consistent with chronic microvascular ischemic changes. There are chronic lacunar infarcts. There is moderate cerebral atrophy. Cerebral ventricles: No ventriculomegaly. Bones/joints: There is chronic deformity of the left zygomatic arch consistent with old fracture. Paranasal sinuses: Visualized sinuses are unremarkable. No fluid levels. Mastoid air cells: Visualized mastoid air cells are well aerated. Vasculature: There is moderate intracranial vascular calcification. Soft tissues: There is a right frontal/periorbital scalp hematoma. There is no underlying fracture. IMPRESSION: No posttraumatic intracranial findings. Please see details above. PROGNOSIS: Guarded. ACTIVITY: As tolerated DIET: regular diet DISCHARGE PLAN: back to [facility] DISPOSITION: [facility] DISCHARGE INSTRUCTIONS: Fall risk. To use walker. Would benefit from continued PT. Discontinued eliquis. ITEMS TO FOLLOWUP ON ON OUTPATIENT: PCP follow up DISCHARGE CONDITION: Stable TIME SPENT ON DISCHARGE: 45 minutes. Vital Signs/I&Os Vital Signs Date Time Temp Pulse Resp B/P (MAP) Pulse Ox O2 Delivery O2 Flow Rate FiO2 04/08/21 12:19 97.6 67 17 139/81 (100) 100 Room Air I&O- Last 24 Hours up to 6 AM 04/09/21 06:00 Intake Total 670 ml Output Total 0 ml Balance 670 ml Microbiology Microbiology 04/08/21 Respiratory Virus Panel (PCR) ([facility]) - Final, Complete Discharge Medications Scheduled Acetaminophen (Acetaminophen) 500 Mg Tablet, 500 MG PO BID, (Reported) Brimonidine Tartrate (Brimonidine Tartrate) 0.15% 5ML Drops, 1 DROP OU BID, (Reported) Folic Acid (Folic Acid) 1 Mg Tablet, 1 MG PO DAILY, (Reported) Lactulose (Lactulose) 10 Gm/15 Ml Solution, 30 ML PO BID for constipation, (Reported) Latanoprost (Xalatan) 0.005% 2.5ML Drops, 1 DROP OU QHS, (Reported) Methotrexate Sodium (Methotrexate) 2.5 Mg Tablet, 7.5 MG PO QWEEK, (Reported) SUNDAYS Multivitamins (Thera M Plus Tablet) 1 Each Tablet, 1 TAB PO DAILY, (Reported) Omeprazole (Omeprazole) 10 Mg Capsule.dr, 10 MG PO DAILY, (Reported) Quetiapine Fumarate (Quetiapine Fumarate) 100 Mg Tablet, 100 MG PO BID, (Reported) Rosuvastatin Calcium (Rosuvastatin Calcium) 40 Mg Tablet, 40 MG PO QHS, (Rep orted) Sennosides/Docusate Sodium (Senna Plus Tablet) 1 Each Tablet, 2 TAB PO BID, (Reported) Scheduled PRN Acetaminophen (Acetaminophen) 325 Mg Tablet, 650 MG PO Q4H PRN for PAIN, (Reported) Bisacodyl (Dulcolax) 10 Mg Supp.rect, 10 MG AR DAILY PRN for CONSTIPATION, (Reported) Magnesium Hydroxide (Milk of Magnesia) 400 Mg/5 Ml Oral.susp, 2,400 MG PO DAILY PRN for CONSTIPATION, (Reported) Sodium Phosphate,[place]-Dibasic (Enema) 133 Ml Enema, 1 KUMAR AR DAILY PRN for CONSTIPATION, (Reported) Allergies Coded Allergies: donepezil (Verified Adverse Reaction, Severe, sinus pause 2.2 seconds 08/27/19 on telemetry, 08/28/19) timolol (Verified Adverse Reaction, Intermediate, hypotension, 08/28/19) hypotension KAYLA JUAN MD April 09, 2021 10:38
== END 2021-04-09 11:47 | DRG 951 ==
LOC: M ED 08:19 → EDBD 08:19 → M ED INP 10:49 → ENRESERV 11:37 → M MSPAV 12:19
PROVIDERS: ADMIT Internal Medicine; ATTEND Internal Medicine
DX: Z51.5 Encounter for palliative care (principal); I48.20 Chronic atrial fibrillation, unspecified; S00.83XA Contusion of other part of head, initial encounter; S00.03XA Contusion of scalp, initial encounter; I10 Essential (primary) hypertension; F03.90 Unspecified dementia, unspecified severity, without behavioral disturbance, psychotic disturbance, mood disturbance, and anxiety; M06.9 Rheumatoid arthritis, unspecified; E11.9 Type 2 diabetes mellitus without complications; Z87.820 Personal history of traumatic brain injury; K21.9 Gastro-esophageal reflux disease without esophagitis; G47.33 Obstructive sleep apnea (adult) (pediatric); H40.9 Unspecified glaucoma; Z79.01 Long term (current) use of anticoagulants; R29.6 Repeated falls; Z79.899 Other long term (current) drug therapy; Z88.8 Allergy status to other drugs, medicaments and biological substances; Z66 Do not resuscitate

== ENCOUNTER → 2021-05-06 | Outpatient (REF) | payer MEDICARE, BC ==
[~2021-05-06] MED LIST changes: +ACET32TAB PO; +ACET500T15 PO; +ELIQ5TAB PO; +ENEMENE PR; +LACT10SO3 PO; +OMEP10CA78 PO; +QUET100T2 PO; +VITMTA PO
[2021-05-06 11:06] LABS: HEMATOCRIT 36.2 % (42.0-52.0); HEMOGLOBIN 11.6 g/dl (13.5-17.5); MEAN CORPUSCULAR HEMOGLOBIN 30.1 pg (27.0-33.0); MEAN CORPUSCULAR VOLUME 93.8 fl (80.0-96.0); PLATELET COUNT, AUTOMATED 161 10^3/uL (150-450); RED BLOOD COUNT 3.86 10^6/uL (4.30-6.10); WHITE BLOOD COUNT 5.6 10^3/uL (4.0-10.0)
[2021-05-06 11:48] LABS: ALBUMIN 3.8 GM/DL (3.2-5.2); BILIRUBIN,TOTAL 0.8 MG/DL (0.2-1.0); CALCIUM LEVEL 8.9 MG/DL (8.8-10.2); CREATININE FOR GFR 1.27 MG/DL (0.70-1.30); GLOMERULAR FILTRATION RATE 57.5 (>35); POTASSIUM SERUM 4.3 MEQ/L (3.5-5.1); TOTAL PROTEIN 7.6 GM/DL (6.4-8.2)
== END ==
LOC: SKLAB6 07:00
PROVIDERS: ATTEND Internal Medicine
DX: Z51.81 Encounter for therapeutic drug level monitoring (principal)

== ENCOUNTER → 2021-07-13 | Outpatient (REF) | payer MEDICARE, BC, OTHER ==
[~2021-07-13] MED LIST changes: -LISI2.5T2 PO; +LISI2.5T9 PO; +QUET1TAB17 PO; -QUET25TA3 PO; -QUET50TA3 PO; +QUET50TA4 PO
[2021-07-13 09:12] LABS: ALBUMIN 3.2 GM/DL (3.2-5.2); ALT/SGPT 25 U/L (12-78); BILIRUBIN,TOTAL 0.6 MG/DL (0.2-1.0); BLOOD UREA NITROGEN 22 MG/DL (7-18); CALCIUM LEVEL 8.2 MG/DL (8.8-10.2); CARBON DIOXIDE LEVEL 30 MEQ/L (21-32); CHLORIDE LEVEL 110 MEQ/L (98-107); CREATININE FOR GFR 1.07 MG/DL (0.70-1.30); GLOMERULAR FILTRATION RATE > 60.0 (>35); GLUCOSE, FASTING 98 MG/DL (70-100); SODIUM LEVEL 141 MEQ/L (136-145); TOTAL PROTEIN 6.6 GM/DL (6.4-8.2)
== END ==
LOC: SKLAB6 07:00
PROVIDERS: ATTEND Internal Medicine
DX: M06.9 Rheumatoid arthritis, unspecified (principal); Z79.899 Other long term (current) drug therapy

== ENCOUNTER 2021-07-28 11:56 | Emergency (ER) | payer MEDICARE, BC, OTHER ==
[~2021-07-28] VITALS: Ht 170.2 cm; Wt 90.9 kg
[2021-07-28] MEDS ORDERED: LIDOCAINE 1% MDV 20ML VIAL SC ONE (12:20)
--- NOTE | 2021-07-28 12:49 | REP ---
INDICATION: trauma. COMPARISON: 02/11/2020. TECHNIQUE: Single portable AP view of the chest was performed. FINDINGS: There is mild cardiomegaly. There is no acute infiltrate. The mediastinal silhouette is unremarkable. There are degenerative changes at both shoulders. IMPRESSION: No acute pulmonary disease.Mild cardiomegaly. <Electronically signed by Aleksandr Craig > 07/28/21 [id number]
[2021-07-28] MEDS ORDERED: HOME MED LIST COMPLETE! XX SCH (12:55)
[2021-07-28 12:57] LABS: BASO % 0.2 % (0.0-1.0); EOS # 0.1 10^3/uL (0.0-0.5); EOS % 1.1 % (0.0-3.0); HEMATOCRIT 32.8 % (42.0-52.0); HEMOGLOBIN 10.6 g/dl (13.5-17.5); LYMPH # 1.7 10^3/uL (1.5-5.0); LYMPH % 25.9 % (24.0-44.0); MEAN CORPUSCULAR HEMOGLOBIN 30.7 pg (27.0-33.0); MEAN CORPUSCULAR HGB CONC 32.3 g/dl (32.0-36.5); MEAN CORPUSCULAR VOLUME 95.1 fl (80.0-96.0); MONO # 0.3 10^3/uL (0.0-0.8); MONO % 5.1 % (2.0-8.0); NEUTROPHILS # 4.4 10^3/uL (1.5-8.5); NEUTROPHILS % 67.2 % (36.0-66.0); PLATELET COUNT, AUTOMATED 156 10^3/uL (150-450); RED BLOOD COUNT 3.45 10^6/uL (4.30-6.10); WHITE BLOOD COUNT 6.5 10^3/uL (4.0-10.0)
--- NOTE | 2021-07-28 12:58 | REPVR ---
PROCEDURE INFORMATION: Exam: CT Head Without Contrast Exam date and time: 07/28/2021 12:27 PM Age: 86 years old Clinical indication: Injury or trauma; Fall; Blunt trauma (contusions or hematomas) TECHNIQUE: Imaging protocol: Computed tomography of the head without contrast. Radiation optimization: All CT scans at this facility use at least one of these dose optimization techniques: automated exposure control; mA and/or kV adjustment per patient size (includes targeted exams where dose is matched to clinical indication); or iterative reconstruction. COMPARISON: CT Head without contrast 04/09/2021 8:50 AM FINDINGS: Brain: There is no acute intracranial hemorrhage or mass effect. Moderate diffuse volume loss is within the range of normal for patient age. There are small vessel ischemic changes within the periventricular and subcortical white matter, but the normal perez-white matter delineation is maintained. Cerebral ventricles: Prominence of the ventricular system is commensurate with volume loss. Paranasal sinuses: Visualized sinuses are unremarkable. No fluid levels. Mastoid air cells: Visualized mastoid air cells are well aerated. Bones/joints: Unremarkable. No acute fracture. Soft tissues: There is inferior frontal soft tissue injury. IMPRESSION: No acute hemorrhage or calvarial fracture. Electronically signed by: Marisa Riley On 07/28/2021 12:57:57 PM
--- NOTE | 2021-07-28 13:06 | REPVR ---
PROCEDURE INFORMATION: Exam: CT Maxillofacial Without Contrast Exam date and time: 07/28/2021 12:27 PM Age: 86 years old Clinical indication: Injury or trauma; Fall; Blunt trauma (contusions or hematomas); Nose TECHNIQUE: Imaging protocol: Computed tomography images of the face without contrast. Radiation optimization: All CT scans at this facility use at least one of these dose optimization techniques: automated exposure control; mA and/or kV adjustment per patient size (includes targeted exams where dose is matched to clinical indication); or iterative reconstruction. COMPARISON: CT Head without contrast 04/09/2021 8:50 AM FINDINGS: Orbital cavity: Orbits are normal. Globes are unremarkable. Bones/joints: There are chronic left lateral orbital wall, left maxillary sinus wall, left lateral pterygoid plate and left zygoma fractures. Paranasal sinuses: Normal. No air-fluid levels. Soft tissues: There is inferior frontal/facial soft tissue injury. IMPRESSION: Soft tissue injury and chronic left facial fractures. No acute fracture. Electronically signed by: Marisa Riley On 07/28/2021 13:05:50 PM
--- NOTE | 2021-07-28 13:11 | REPVR ---
PROCEDURE INFORMATION: Exam: CT Cervical Spine Without Contrast Exam date and time: 07/28/2021 12:27 PM Age: 86 years old Clinical indication: Injury or trauma; Fall; Blunt trauma TECHNIQUE: Imaging protocol: Computed tomography images of the cervical spine without contrast. Radiation optimization: All CT scans at this facility use at least one of these dose optimization techniques: automated exposure control; mA and/or kV adjustment per patient size (includes targeted exams where dose is matched to clinical indication); or iterative reconstruction. COMPARISON: CT Spine,cervical w/o contrast 04/08/2021 8:27 AM FINDINGS: Bones/joints: There is incidental atlantooccipital fusion. There are coarse ventral bridging osteophytes, compatible with DISH. As compared to the preceding examination, a focal lucency now traverses the C4/5 ventral osteophyte, worrisome for interval fracture. Normal vertebral body alignment and heights are preserved. Discs/Spinal canal/Neural foramina: There are multilevel disc osteophyte complexes, most pronounced at C5/6. There is multilevel facet hypertrophy. There is multilevel moderate to severe neural foraminal narrowing. Lungs: Lung apices are normal. Soft tissues: Unremarkable. IMPRESSION: Suspected acute C4/5 ventral osteophyte fracture. Electronically signed by: Marisa Riley On 07/28/2021 13:11:29 PM
[2021-07-28 13:35] LABS: ALBUMIN 3.3 GM/DL (3.2-5.2); ALT/SGPT 28 U/L (12-78); BILIRUBIN,DIRECT 0.2 MG/DL (0.0-0.2); BILIRUBIN,TOTAL 0.6 MG/DL (0.2-1.0); BLOOD UREA NITROGEN 25 MG/DL (7-18); CALCIUM LEVEL 8.4 MG/DL (8.8-10.2); CARBON DIOXIDE LEVEL 28 MEQ/L (21-32); CHLORIDE LEVEL 106 MEQ/L (98-107); CK-MB VALUE MASS 2.3 NG/ML (<3.6); CPK CREATINE PHOSPHOKINASE 130 U/L (39-308); CREATININE FOR GFR 1.15 MG/DL (0.70-1.30); FREE T4 0.65 NG/DL (0.76-1.46); GLOMERULAR FILTRATION RATE > 60.0 (>35); GLUCOSE, FASTING 112 MG/DL (70-100); MB/CK RELATIVE INDEX 1.77 (< OR =4); POTASSIUM SERUM 4.9 MEQ/L (3.5-5.1); SODIUM LEVEL 138 MEQ/L (136-145); TOTAL PROTEIN 7.1 GM/DL (6.4-8.2); TROPONIN I < 0.02 NG/ML (< 0.10)
[2021-07-28 15:18] LABS: RSV AMPLIFICATION NEGATIVE (NEGATIVE)
[2021-07-28 16:15] VITALS: BP 167/106
--- NOTE | 2021-07-28 19:41 | ECGEPIP ---
[facility] - ED Test Date: 2021-07-28 Pat Name: LAKISHA MONDRAGON Department: Room: - Gender: Male Chuck Tender: : 1935 Requested By: JASWANT Santos Order Number: [id number] Reading MD: Gerson Snider Measurements Intervals [place] Rate: 80 P: MD: QRS: 72 QRSD: 88 T: 48 QT: 400 QTc: 461 Interpretive Statements Atrial fibrillation Anterior infarct , age undetermined Nonspecific ST T wave changes cw 01/30/[address] T wave changes Electronically Signed on 07-28-2021 19:40:38 EDT by Gerson Snider
== END 2021-07-28 16:28 | disposition short-term general hospital (02) ==
LOC: M ED 11:56 → EDBD 11:56 → M ED 16:28
DX: S12.9XXA Fracture of neck, unspecified, initial encounter (principal); M25.78 Osteophyte, vertebrae; S01.81XA Laceration without foreign body of other part of head, initial encounter; W19.XXXA Unspecified fall, initial encounter; Y92.129 Unspecified place in nursing home as the place of occurrence of the external cause; Y93.9 Activity, unspecified; Y99.9 Unspecified external cause status; I48.91 Unspecified atrial fibrillation; E11.9 Type 2 diabetes mellitus without complications; I10 Essential (primary) hypertension; M06.9 Rheumatoid arthritis, unspecified; K21.9 Gastro-esophageal reflux disease without esophagitis; G47.33 Obstructive sleep apnea (adult) (pediatric); H40.9 Unspecified glaucoma; Z87.820 Personal history of traumatic brain injury; G30.9 Alzheimer's disease, unspecified; Z79.899 Other long term (current) drug therapy; Z88.8 Allergy status to other drugs, medicaments and biological substances

== ENCOUNTER → 2021-08-03 | Outpatient (REF) | payer MEDICARE, BC, OTHER ==
--- NOTE | 2021-08-03 16:33 | REP ---
INDICATION: SWELLING IN RIGHT INDEX FINGER. COMPARISON: Comparison radiographs of the right hand are from April 02, 2009. TECHNIQUE: Four views of the right hand are obtained. Patient apparently was unable to extend the MCP or IP joints, flexion contracture. Positioning is therefore suboptimal. FINDINGS: Four views of the right hand demonstrate considerable bony overlap due to flexion deformity. The hand is essentially in a fist configuration. 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 No soft tissue gas is seen. Extensive vascular calcification is noted across the wrist. No fracture is evident. No opaque foreign body noted. IMPRESSION: Suboptimal positioning due to flexion deformity. Osteoarthritic changes. No acute bony abnormality is appreciated. Vascular calcification. <Electronically signed by Solis Ro > 08/03/21 [id number]
== END ==
LOC: SKLAB6 15:23
PROVIDERS: ATTEND Internal Medicine
DX: M19.041 Primary osteoarthritis, right hand (principal)

== ENCOUNTER → 2021-09-16 | Outpatient (REF) | payer MEDICARE, BC, OTHER | LOC: SKLAB6 08:56 | PROVIDERS: ATTEND Internal Medicine | DX: Z20.822 Contact with and (suspected) exposure to COVID-19 (principal) ==

== ENCOUNTER → 2021-09-20 | Outpatient (REF) | payer MEDICARE, BC, OTHER | LOC: SKLAB6 05:24 | PROVIDERS: ATTEND Internal Medicine | DX: Z20.822 Contact with and (suspected) exposure to COVID-19 (principal) ==

== ENCOUNTER → 2021-09-23 | Outpatient (REF) | payer MEDICARE, BC, OTHER | LOC: SKLAB6 06:01 | PROVIDERS: ATTEND Internal Medicine | DX: Z20.822 Contact with and (suspected) exposure to COVID-19 (principal) ==

== ENCOUNTER → 2021-09-27 | Outpatient (REF) | payer MEDICARE, BC, OTHER | LOC: SKLAB6 05:15 | PROVIDERS: ATTEND Internal Medicine | DX: Z20.822 Contact with and (suspected) exposure to COVID-19 (principal) ==

== ENCOUNTER → 2021-09-30 | Outpatient (REF) | payer MEDICARE, BC, OTHER | LOC: SKLAB6 05:12 | PROVIDERS: ATTEND Internal Medicine | DX: Z20.822 Contact with and (suspected) exposure to COVID-19 (principal) ==

== ENCOUNTER → 2021-10-06 | Outpatient (REF) | payer MEDICARE, BC, OTHER | LOC: SKLAB6 13:34 | PROVIDERS: ATTEND Internal Medicine | DX: Z20.822 Contact with and (suspected) exposure to COVID-19 (principal) ==

== ENCOUNTER → 2021-10-13 | Outpatient (REF) | payer MEDICARE, BC, OTHER | LOC: SKLAB6 07:55 | PROVIDERS: ATTEND Internal Medicine | DX: Z20.822 Contact with and (suspected) exposure to COVID-19 (principal) ==

== ENCOUNTER → 2021-11-03 | Outpatient (REF) | payer MEDICARE, BC, OTHER | LOC: SKLAB6 08:41 | PROVIDERS: ATTEND Internal Medicine | DX: Z20.822 Contact with and (suspected) exposure to COVID-19 (principal) ==

== ENCOUNTER → 2021-11-10 | Outpatient (REF) | payer MEDICARE, BC, OTHER | LOC: SKLAB6 13:51 | PROVIDERS: ATTEND Internal Medicine | DX: Z20.822 Contact with and (suspected) exposure to COVID-19 (principal) ==

== ENCOUNTER → 2021-11-17 | Outpatient (REF) | payer MEDICARE, BC, OTHER | LOC: SKLAB6 07:00 | PROVIDERS: ATTEND Internal Medicine | DX: Z20.822 Contact with and (suspected) exposure to COVID-19 (principal) ==

== ENCOUNTER → 2021-11-24 | Outpatient (REF) | payer MEDICARE, BC, OTHER | LOC: SKLAB6 07:00 | PROVIDERS: ATTEND Internal Medicine | DX: Z20.822 Contact with and (suspected) exposure to COVID-19 (principal) ==

== ENCOUNTER → 2021-12-01 | Outpatient (REF) | payer MEDICARE, BC, OTHER ==
[~2021-12-01] MED LIST changes: -LISI-898 PO; +LISI5TAB11 PO
== END ==
LOC: SKLAB6 07:00
PROVIDERS: ATTEND Internal Medicine
DX: Z20.822 Contact with and (suspected) exposure to COVID-19 (principal)

== ENCOUNTER → 2021-12-09 | Outpatient (REF) | payer MEDICARE, BC, OTHER ==
[2021-12-09 11:14] LABS: HEMATOCRIT 38.9 % (42.0-52.0); HEMOGLOBIN 12.7 g/dl (13.5-17.5); MEAN CORPUSCULAR HEMOGLOBIN 29.9 pg (27.0-33.0); MEAN CORPUSCULAR HGB CONC 32.6 g/dl (32.0-36.5); MEAN CORPUSCULAR VOLUME 91.5 fl (80.0-96.0); PLATELET COUNT, AUTOMATED 247 10^3/uL (150-450); RED BLOOD COUNT 4.25 10^6/uL (4.30-6.10); WHITE BLOOD COUNT 8.2 10^3/uL (4.0-10.0)
[2021-12-09 11:46] LABS: ALBUMIN 2.9 GM/DL (3.2-5.2); ALT/SGPT 13 U/L (12-78); BILIRUBIN,TOTAL 0.5 MG/DL (0.2-1.0); BLOOD UREA NITROGEN 26 MG/DL (7-18); C REACTIVE PROTEIN QUANTITATIV 1.07 MG/DL (0.00-0.30); CALCIUM LEVEL 8.4 MG/DL (8.8-10.2); CARBON DIOXIDE LEVEL 30 MEQ/L (21-32); CHLORIDE LEVEL 106 MEQ/L (98-107); CREATININE FOR GFR 1.01 MG/DL (0.70-1.30); GLOMERULAR FILTRATION RATE > 60.0 (>35); GLUCOSE, FASTING 96 MG/DL (70-100); POTASSIUM SERUM 4.5 MEQ/L (3.5-5.1); SODIUM LEVEL 140 MEQ/L (136-145)
[2021-12-09 12:00] LABS: ERYTHROCYTE SEDIMENTATION RATE 66 mm/hr (0-20)
== END ==
LOC: SKLAB6 07:00
PROVIDERS: ATTEND Internal Medicine
DX: G30.9 Alzheimer's disease, unspecified (principal); F02.81 Dementia in other diseases classified elsewhere, unspecified severity, with behavioral disturbance

== ENCOUNTER → 2021-12-12 | Outpatient (REF) | payer MEDICARE, BC, OTHER ==
[~2021-12-12] MED LIST changes: -OMEP10CA78 PO; +OMEP1CAP71 PO
== END ==
LOC: SKLAB6 07:53
PROVIDERS: ATTEND Internal Medicine
DX: R76.11 Nonspecific reaction to tuberculin skin test without active tuberculosis (principal); I51.7 Cardiomegaly

== ENCOUNTER → 2021-12-30 | Outpatient (REF) | payer MEDICARE, BC, OTHER | LOC: SKLAB6 07:29 | PROVIDERS: ATTEND Internal Medicine | DX: R76.12 Nonspecific reaction to cell mediated immunity measurement of gamma interferon antigen response without active tuberculosis (principal) ==

== ENCOUNTER → 2022-01-04 | Outpatient (REF) | payer MEDICARE, BC, OTHER ==
[2022-01-04 15:34] LABS: ALBUMIN 2.7 GM/DL (3.2-5.2); ALT/SGPT 12 U/L (12-78); BILIRUBIN,TOTAL 0.8 MG/DL (0.2-1.0); BLOOD UREA NITROGEN 29 MG/DL (7-18); CALCIUM LEVEL 8.9 MG/DL (8.8-10.2); CARBON DIOXIDE LEVEL 29 MEQ/L (21-32); CHLORIDE LEVEL 107 MEQ/L (98-107); CREATININE FOR GFR 1.21 MG/DL (0.70-1.30); GLOMERULAR FILTRATION RATE > 60.0 (>35); GLUCOSE, FASTING 187 MG/DL (70-100); POTASSIUM SERUM 3.9 MEQ/L (3.5-5.1); SODIUM LEVEL 141 MEQ/L (136-145); TOTAL PROTEIN 8.2 GM/DL (6.4-8.2)
== END ==
LOC: SKLAB6 07:00
PROVIDERS: ATTEND Internal Medicine
DX: M16.12 Unilateral primary osteoarthritis, left hip (principal); M25.552 Pain in left hip

== ENCOUNTER → 2022-01-06 | Outpatient (REF) | payer MEDICARE, BC, OTHER | LOC: SKLAB6 10:57 | PROVIDERS: ATTEND Internal Medicine | DX: R63.4 Abnormal weight loss (principal) ==

== ENCOUNTER → 2022-01-11 | Outpatient (REF) | payer MEDICARE, BC, OTHER ==
[2022-01-11 14:52] LABS: ALBUMIN 2.6 GM/DL (3.2-5.2); ALT/SGPT 17 U/L (12-78); BILIRUBIN,TOTAL 0.9 MG/DL (0.2-1.0); BLOOD UREA NITROGEN 20 MG/DL (7-18); CALCIUM LEVEL 8.6 MG/DL (8.8-10.2); CARBON DIOXIDE LEVEL 25 MEQ/L (21-32); CHLORIDE LEVEL 102 MEQ/L (98-107); CREATININE FOR GFR 1.01 MG/DL (0.70-1.30); GLOMERULAR FILTRATION RATE > 60.0 (>35); GLUCOSE, FASTING 143 MG/DL (70-100); SODIUM LEVEL 135 MEQ/L (136-145); TOTAL PROTEIN 7.8 GM/DL (6.4-8.2)
== END ==
LOC: SKLAB6 07:03
PROVIDERS: ATTEND Internal Medicine
DX: Z22.7 Latent tuberculosis (principal)

== ENCOUNTER → 2022-01-13 | Outpatient (REF) | payer MEDICARE, BC, OTHER ==
[2022-01-13 11:48] LABS: APPEARANCE, URINE CLEAR (CLEAR); BACTERIA, URINE AUTO 1+ (NEGATIVE); BILIRUBIN, URINE AUTO NEGATIVE (NEGATIVE); BLOOD, URINE BLOOD 2+ (NEGATIVE); COLOR, URINE YELLOW (YELLOW); GLUCOSE, URINE (UA) AUTO NEGATIVE (NEGATIVE); KETONE, URINE AUTO NEGATIVE (NEGATIVE); LEUKOCYTE ESTERASE, URINE AUTO NEGATIVE (NEGATIVE); MUCUS, URINE SMALL (NEGATIVE); NITRITE, URINE AUTO NEGATIVE (NEGATIVE); PROTEIN, URINE AUTO 1+ mg/dL (NEGATIVE); RBC, URINE AUTO 68 /HPF (0-3); SQUAMOUS EPITHELIAL CELL UR AU 1 /HPF (0-6); UROBILINOGEN, URINE AUTO 0.2 mg/dL (0.0-2.0); WBC, URINE AUTO 2 /HPF (0-3)
[2022-01-13 12:45] LABS: HEMATOCRIT 35.9 % (42.0-52.0); HEMOGLOBIN 11.4 g/dl (13.5-17.5); MEAN CORPUSCULAR HEMOGLOBIN 29.5 pg (27.0-33.0); MEAN CORPUSCULAR HGB CONC 31.8 g/dl (32.0-36.5); MEAN CORPUSCULAR VOLUME 92.8 fl (80.0-96.0); PLATELET COUNT, AUTOMATED 257 10^3/uL (150-450); RED BLOOD COUNT 3.87 10^6/uL (4.30-6.10); WHITE BLOOD COUNT 9.6 10^3/uL (4.0-10.0)
[2022-01-13 13:04] LABS: BLOOD UREA NITROGEN 19 MG/DL (7-18); CALCIUM LEVEL 8.5 MG/DL (8.8-10.2); CARBON DIOXIDE LEVEL 30 MEQ/L (21-32); CHLORIDE LEVEL 103 MEQ/L (98-107); CREATININE FOR GFR 0.98 MG/DL (0.70-1.30); GLOMERULAR FILTRATION RATE > 60.0 (>35); GLUCOSE, FASTING 131 MG/DL (70-100); POTASSIUM SERUM 4.8 MEQ/L (3.5-5.1); SODIUM LEVEL 139 MEQ/L (136-145)
== END ==
LOC: SKLAB6 10:00
PROVIDERS: ATTEND Internal Medicine
DX: I51.7 Cardiomegaly (principal); R50.9 Fever, unspecified

== ENCOUNTER → 2022-01-18 | Outpatient (REF) | payer MEDICARE, BC, OTHER ==
[2022-01-18 07:57] LABS: ALBUMIN 2.2 GM/DL (3.2-5.2); ALT/SGPT 14 U/L (12-78); BILIRUBIN,TOTAL 0.3 MG/DL (0.2-1.0); BLOOD UREA NITROGEN 18 MG/DL (7-18); CALCIUM LEVEL 8.5 MG/DL (8.8-10.2); CARBON DIOXIDE LEVEL 27 MEQ/L (21-32); CHLORIDE LEVEL 103 MEQ/L (98-107); CREATININE FOR GFR 0.89 MG/DL (0.70-1.30); GLOMERULAR FILTRATION RATE > 60.0 (>35); GLUCOSE, FASTING 106 MG/DL (70-100); POTASSIUM SERUM 4.1 MEQ/L (3.5-5.1); SODIUM LEVEL 137 MEQ/L (136-145); TOTAL PROTEIN 7.6 GM/DL (6.4-8.2)
== END ==
LOC: SKLAB6 07:00
PROVIDERS: ATTEND Internal Medicine
DX: Z22.7 Latent tuberculosis (principal)

== ENCOUNTER → 2022-01-25 | Outpatient (REF) | payer MEDICARE, BC, OTHER ==
[2022-01-25 09:12] LABS: ALBUMIN 2.4 GM/DL (3.2-5.2); ALT/SGPT 17 U/L (12-78); BILIRUBIN,TOTAL 0.2 MG/DL (0.2-1.0); BLOOD UREA NITROGEN 21 MG/DL (7-18); CALCIUM LEVEL 8.3 MG/DL (8.8-10.2); CARBON DIOXIDE LEVEL 30 MEQ/L (21-32); CHLORIDE LEVEL 106 MEQ/L (98-107); CREATININE FOR GFR 0.88 MG/DL (0.70-1.30); GLOMERULAR FILTRATION RATE > 60.0 (>35); GLUCOSE, FASTING 103 MG/DL (70-100); POTASSIUM SERUM 4.3 MEQ/L (3.5-5.1); SODIUM LEVEL 140 MEQ/L (136-145); TOTAL PROTEIN 6.8 GM/DL (6.4-8.2)
== END ==
LOC: SKLAB6 07:25
PROVIDERS: ATTEND Internal Medicine
DX: Z22.7 Latent tuberculosis (principal)

== ENCOUNTER → 2022-03-10 | Outpatient (REF) | payer MEDICARE, BC, OTHER | LOC: SKLAB6 10:10 | PROVIDERS: ATTEND Internal Medicine | DX: F03.91 Unspecified dementia, unspecified severity, with behavioral disturbance (principal) ==

== ENCOUNTER → 2022-04-20 | Outpatient (REF) | payer MEDICARE, BC, OTHER ==
[2022-04-20 11:38] LABS: ALT/SGPT 16 U/L (12-78); BILIRUBIN,TOTAL 0.3 MG/DL (0.2-1.0); BLOOD UREA NITROGEN 14 MG/DL (7-18); CALCIUM LEVEL 9.2 MG/DL (8.8-10.2); CARBON DIOXIDE LEVEL 29 MEQ/L (21-32); CHLORIDE LEVEL 107 MEQ/L (98-107); CREATININE FOR GFR 0.88 MG/DL (0.70-1.30); GLOMERULAR FILTRATION RATE > 60.0 (>35); GLUCOSE, FASTING 107 MG/DL (70-100); POTASSIUM SERUM 4.7 MEQ/L (3.5-5.1); SODIUM LEVEL 142 MEQ/L (136-145); TOTAL PROTEIN 6.7 GM/DL (6.4-8.2)
== END ==
LOC: SKLAB6 07:00
PROVIDERS: ATTEND Internal Medicine
DX: Z79.899 Other long term (current) drug therapy (principal)

== ENCOUNTER → 2022-06-09 | Outpatient (REF) | payer MEDICARE, BC, OTHER | LOC: SKLAB6 08:00 | PROVIDERS: ATTEND Internal Medicine | DX: F03.91 Unspecified dementia, unspecified severity, with behavioral disturbance (principal) ==

== ENCOUNTER → 2022-11-17 | Outpatient (REF) | payer MEDICARE, BC, OTHER | LOC: SKLAB6 14:01 | PROVIDERS: ATTEND Nurse Practitioner Family | DX: I51.7 Cardiomegaly (principal) ==

== ENCOUNTER → 2022-11-18 | Outpatient (REF) | payer MEDICARE, BC, OTHER | LOC: SKLAB6 02:19 | PROVIDERS: ATTEND Nurse Practitioner Family | DX: R05.9 Cough, unspecified (principal) ==

== ENCOUNTER → 2023-02-18 | Outpatient (REF) | LOC: SKLAB6 14:49 | PROVIDERS: ATTEND Internal Medicine | DX: R19.5 Other fecal abnormalities (principal); R14.0 Abdominal distension (gaseous) ==

== ENCOUNTER → 2023-12-10 | Outpatient (REF) | payer MEDICARE, BC, OTHER ==
[~2023-12-10] MED LIST changes: +ASPI-655 PO; -ASPI1CHW3 PO
[2023-12-10 09:21] LABS: BASO % 0.4 % (0.0-1.0); EOS # 0.1 10^3/uL (0.0-0.5); EOS % 1.5 % (0.0-3.0); HEMATOCRIT 41.3 % (42.0-52.0); HEMOGLOBIN 13.7 g/dl (13.5-17.5); LYMPH % 24.8 % (24.0-44.0); MEAN CORPUSCULAR HEMOGLOBIN 30.7 pg (27.0-33.0); MEAN CORPUSCULAR HGB CONC 33.2 g/dl (32.0-36.5); MEAN CORPUSCULAR VOLUME 92.6 fl (80.0-96.0); MONO # 0.6 10^3/uL (0.0-0.8); MONO % 7.2 % (2.0-8.0); NEUTROPHILS # 5.4 10^3/uL (1.5-8.5); NEUTROPHILS % 65.5 % (36.0-66.0); PLATELET COUNT, AUTOMATED 165 10^3/uL (150-450); RED BLOOD COUNT 4.46 10^6/uL (4.30-6.10); WHITE BLOOD COUNT 8.2 10^3/uL (4.0-10.0)
[2023-12-10 09:40] LABS: BLOOD UREA NITROGEN 21 MG/DL (9-23); CALCIUM LEVEL 8.3 MG/DL (8.3-10.6); CARBON DIOXIDE LEVEL 29 MMOL/L (20-31); CHLORIDE LEVEL 107 MMOL/L (98-107); CREATININE FOR GFR 0.91 MG/DL (0.70-1.30); GLOMERULAR FILTRATION RATE > 60.0 (>35); GLUCOSE, FASTING 98 MG/DL (74-106); POTASSIUM SERUM 4.5 MMOL/L (3.5-5.1); SODIUM LEVEL 139 MMOL/L (136-145)
== END ==
LOC: SKLAB5 07:00
PROVIDERS: ATTEND Internal Medicine
DX: R09.81 Nasal congestion (principal); Z79.899 Other long term (current) drug therapy

== ENCOUNTER → 2024-03-26 | Outpatient (REF) | payer MEDICARE, BC, OTHER ==
[~2024-03-26] MED LIST changes: +MEMA10TA PO; -MEMA10TA19 PO
== END ==
LOC: SKLAB5 11:39
PROVIDERS: ATTEND Internal Medicine
DX: I27.20 Pulmonary hypertension, unspecified (principal); R06.02 Shortness of breath